=== PATIENT | female | born 1985 | race Caucasian/White ===

== ENCOUNTER 2017-12-02 14:18 | Emergency (ER) | payer MEDICARE, MEDICAID, SELFPAY ==
[2017-12-02 14:24] VITALS: BP 121/73; PULSE 92; TEMP 36.7; O2SAT 97
--- NOTE | 2017-12-02 17:14 | W.ED.GENAD ---
Discharge Plan Disposition Patient Disposition: HOME Condition: Stable Discharge Details Chief Complaint: Orthopedic Clinical Impression: DVT (deep venous thrombosis) Primary Care Provider: Harinder Matthews ED Provider: Linden Prince Home Meds and New Rx's Prescriptions: New ibuprofen [IBU] 600 mg tablet 600 mg PO QID PRN (Reason: pain) Qty: 14 RF: 0 Discontinued norethindrone-e.estradiol-iron [Microgestin Fe 1.5/30 (28)] 1.5 mg-30 mcg (21)/75 mg (7) tablet 1 tab PO DAILY Qty: 84 RF: 3 naproxen 500 MG tablet 500 mg PO PRN PRNRF: 0 Discharge Instructions Instructions: Deep Venous Thrombosis (ED) Additional Instructions: Radiology will call you to arrange a follow-up appointment and after you get a ultrasound done of your left lower leg you should represent to the emergency department for review of results and any treatment as needed. Feel free to return immediately to the emergency department for any chest pain, shortness of breath, or neurological changes. Referrals: [facility] Emergency Dept. [Outside] (Return tomorrow after your ultrasound has been performed for review of results and further treatment as needed) Discharge Data Discharge Date/Time-TO BE ENTERED AT DEPARTURE: 12/02/17 17:52 Medical Decision Making Patient presenting to the emergency department for chief complaint of left calf pain. Patient denies any injury or trauma and has not had any extraneous activities that would have caused this discomfort. Patient does have a swollen left calf with severe tenderness to the medial aspect and also to the popliteal space of the left knee. There is concern for possible DVT and patient states that both mother and aunt has had issues with clotting disorders in the past. Patient states that she has an occasional smoker but is no longer on any control medication. Patient did take naproxen earlier this morning which provided mild relief. Bedside ultrasound was utilized to view the compressibility of the deep veins of the left leg and starting at the popliteal space and down to the calf there seems to be complete loss of compressibility. Is difficult to fully evaluate flow also in this area. I am highly concerned for DVT and discussed with patient risk versus benefit of ankle anticoagulation. After thorough discussion patient was agreeable to being placed upon single injection of Lovenox and having official ultrasound performed tomorrow in the emergency department. Outpatient orders were placed for DVT study of left lower extremity after discussion of diagnosis and plan of care patient is no further needs, questions, or concerns and states clear understanding to return to the emergency department for any worsening symptoms. HPI General Mode of arrival: ambulatory. Date/Time Provider Initiated Documentation: 12/02/17 14:34. Limitations to Documentation: no limitations. Information obtained by: patient. History of Present Illness 32 year old F presents to the emergency department with the chief complaint of Left leg, described as severe, with intensity rated at 8. Quality is described as aching and sharp, and is localized to the left and lower extremity. Patient reports no radiation. Patient started experiencing this day(s) (2) and it has been constant. No relieving factors improve symptom(s), Movement worsens symptoms . Patient notes no other symptoms.. Patient did receive the following treatments prior to arrival, NSAID Related Data Home Medications Medication Instructions Recorded Confirmed ibuprofen [IBU] 600 mg PO QID PRN #14 tab 12/02/17 Previous Rx's Medication Instructions Recorded ibuprofen [IBU] 600 mg PO QID PRN #14 tab 12/02/17 Allergies Allergy/AdvReac Type Severity Reaction Status Date / Time Antihistamines - Alkylamine Allergy Severe Seizure Unverified 11/13/17 09:26 General Stated Complaint: Vascular ELZA: 4 Review of Systems Constitutional Denies body ache(s), Denies chills and Denies fever(s) Cardiovascular Denies chest pain and Denies dyspnea Respiratory Denies dyspnea Gastrointestinal Denies abdominal pain Musculoskeletal Reports as per HPI Integumentary/Breasts Denies rash Neurologic Denies confusion and Denies sensory deficit Psychiatric Denies confusion [facility] Family History Mother Ovarian cancer Maternal Cousin Colon cancer Social History Smoking/Tobacco Use Status: Current every day alcohol intake: never substance use type: does not use seatbelt use: always Female Reproductive History Menstrual Date of last menstrual period: 11/18/17 Exam Const General: cooperative, no acute distress and not ill appearing Orientation: alert, awake and oriented x3 HENMT Mouth: moist mucous membranes Resp Effort & Inspection: normal respiratory effort, able to speak in complete sentences and no respiratory distress Cardio Rate: regular rate Rhythm: regular rhythm Skin General skin exam: no rashes or lesions noted Neuro General: alert, awake, oriented x3, moves all extremities and no focal motor deficits Sensory Exam: no sensory deficits noted Extrem Right lower extremity: normal to inspection Left lower extremity: lower leg Details: tenderness Location: of the posterior calf, localized swelling Location: of the proximal lower leg, no edema and ecchymosis (Proximal medial calf); no palpable cords, no abrasions, no crepitus, no foreign bodies and no unusual warmth Course Vital Signs Temperature 36.7 C 12/02/17 14:24 Pulse 92 H 12/02/17 14:24 Blood Pressure 121/73 12/02/17 14:24 Pulse Oximetry 97 12/02/17 14:24 Temperature 36.7 C 12/02/17 14:24 Temperature Source Skin 12/02/17 14:24 Pulse 92 H 12/02/17 14:24 Respiratory Effort 12/02/17 14:26 Blood Pressure 121/73 12/02/17 14:24 Blood Pressure Position Sitting 12/02/17 14:24 Pulse Oximetry 97 12/02/17 14:24 Oxygen Delivery Method Room Air 12/02/17 14:24 Oxygen Flow Rate 0 12/02/17 14:24
--- NOTE | 2017-12-02 17:31 | ED.GENADUL_ITS ---
Discharge Plan Disposition Patient Disposition: HOME Condition: Stable Discharge Details Chief Complaint: Orthopedic Clinical Impression: DVT (deep venous thrombosis) Primary Care Provider: Harinder Matthews ED Provider: Linden Prince Home Meds and New Rx's Prescriptions: New ibuprofen [IBU] 600 mg tablet 600 mg PO QID PRN (Reason: pain) Qty: 14 RF: 0 Discontinued norethindrone-e.estradiol-iron [Microgestin Fe 1.5/30 (28)] 1.5 mg-30 mcg (21) /75 mg (7) tablet 1 tab PO DAILY Qty: 84 RF: 3 naproxen 500 MG tablet 500 mg PO PRN PRNRF: 0 Discharge Instructions Instructions: Deep Venous Thrombosis (ED) Additional Instructions: Radiology will call you to arrange a follow-up appointment and after you get a ultrasound done of your left lower leg you should represent to the emergency department for review of results and any treatment as needed. Feel free to return immediately to the emergency department for any chest pain, shortness of breath, or neurological changes. Referrals: [facility] Emergency Dept. [Outside] (Return tomorrow after your ultrasound has been performed for review of results and further treatment as needed) Discharge Data Discharge Date/Time-TO BE ENTERED AT DEPARTURE: 12/02/17 17:52 Medical Decision Making Patient presenting to the emergency department for chief complaint of left calf pain. Patient denies any injury or trauma and has not had any extraneous activities that would have caused this discomfort. Patient does have a swollen left calf with severe tenderness to the medial aspect and also to the popliteal space of the left knee. There is concern for possible DVT and patient states that both mother and aunt has had issues with clotting disorders in the past. Patient states that she has an occasional smoker but is no longer on any control medication. Patient did take naproxen earlier this morning which provided mild relief. Bedside ultrasound was utilized to view the compressibility of the deep veins of the left leg and starting at the popliteal space and down to the calf there seems to be complete loss of compressibility. Is difficult to fully evaluate flow also in this area. I am highly concerned for DVT and discussed with patient risk versus benefit of ankle anticoagulation. After thorough discussion patient was agreeable to being placed upon single injection of Lovenox and having official ultrasound performed tomorrow in the emergency department. Outpatient orders were placed for DVT study of left lower extremity after discussion of diagnosis and plan of care patient is no further needs, questions, or concerns and states clear understanding to return to the emergency department for any worsening symptoms. HPI General Mode of arrival: ambulatory . Date/Time Provider Initiated Documentation: 12/02/17 14:34 . Limitations to Documentation: no limitations . Information obtained by: patient . History of Present Illness 32 year old F presents to the emergency department with the chief complaint of Left leg, described as severe, with intensity rated at 8. Quality is described as aching and sharp, and is localized to the left and lower extremity. Patient reports no radiation. Patient started experiencing this day(s) (2) and it has been constant. No relieving factors improve symptom(s) , Movement worsens symptoms . Patient notes no other symptoms.. Patient did receive the following treatments prior to arrival, NSAID Related Data Home Medications Medication Instructions Recorded Confirmed ibuprofen [IBU] 600 mg PO QID PRN #14 tab 12/02/17 Previous Rx's Medication Instructions Recorded ibuprofen [IBU] 600 mg PO QID PRN #14 tab 12/02/17 Allergies Allergy/AdvReac Type Severity Reaction Status Date / Time Antihistamines - Alkylamine Allergy Severe Seizure Unverified 11/13/17 09:26 General Stated Complaint: Vascular ELZA: 4 Review of Systems Constitutional Denies body ache(s), Denies chills and Denies fever(s) Cardiovascular Denies chest pain and Denies dyspnea Respiratory Denies dyspnea Gastrointestinal Denies abdominal pain Musculoskeletal Reports as per HPI Integumentary/Breasts Denies rash Neurologic Denies confusion and Denies sensory deficit Psychiatric Denies confusion [facility] Family History Mother Ovarian cancer Maternal Cousin Colon cancer Social History Smoking/Tobacco Use Status: Current every day alcohol intake: never substance use type: does not use seatbelt use: always Female Reproductive History Menstrual Date of last menstrual period: 11/18/17 Exam Const General: cooperative, no acute distress and not ill appearing Orientation: alert, awake and oriented x3 HENMT Mouth: moist mucous membranes Resp Effort & Inspection: normal respiratory effort, able to speak in complete sentences and no respiratory distress Cardio Rate: regular rate Rhythm: regular rhythm Skin General skin exam: no rashes or lesions noted Neuro General: alert, awake, oriented x3, moves all extremities and no focal motor deficits Sensory Exam: no sensory deficits noted Extrem Right lower extremity: normal to inspection Left lower extremity: lower leg Details: tenderness Location: of the posterior calf, localized swelling Location: of the proximal lower leg, no edema and ecchymosis (Proximal medial calf); no palpable cords, no abrasions, no crepitus , no foreign bodies and no unusual warmth Course Vital Signs Temperature 36.7 C 12/02/17 14:24 Pulse 92 H 12/02/17 14:24 Blood Pressure 121/73 12/02/17 14:24 Pulse Oximetry 97 12/02/17 14:24 Temperature 36.7 C 12/02/17 14:24 Temperature Source Skin 12/02/17 14:24 Pulse 92 H 12/02/17 14:24 Respiratory Effort 12/02/17 14:26 Blood Pressure 121/73 12/02/17 14:24 Blood Pressure Position Sitting 12/02/17 14:24 Pulse Oximetry 97 12/02/17 14:24 Oxygen Delivery Method Room Air 12/02/17 14:24 Oxygen Flow Rate 0 12/02/17 14:24
[2017-12-02] MEDS: Ibuprofen 600 MG TAB PO (17:45)
== END 2017-12-02 17:52 | disposition home or self-care (01) ==
PROVIDERS: Emergency Provider Nurse Practitioner Family; PCP Family Medicine
DX: I82.422 Acute embolism and thrombosis of left iliac vein (principal); F17.210 Nicotine dependence, cigarettes, uncomplicated
CPT/HCPCS: 96372; 99284; J1650

== ENCOUNTER 2017-12-03 09:37 | Outpatient (CLI) | payer MEDICARE, MEDICAID, SELFPAY ==
--- NOTE | 2017-12-03 09:25 | DI.US_ITS ---
SYMPTOMS/DIAGNOSIS: LT LEG PAIN, SWELLING DUPLEX VENOUS ULTRASOUND LEFT LOWER EXTREMITY: Duplex evaluation of the deep venous system was performed according to the usual protocol. The deep veins are freely compressible throughout to the level of the popliteal veins. There is normal doppler flow visible throughout and there is excellent flow augmentation with manual calf compression. CONCLUSION: No evidence of deep venous thrombosis.
== END 2017-12-03 09:57 ==
PROVIDERS: PCP Family Medicine; Visit Provider Nurse Practitioner Family
DX: M79.605 Pain in left leg (principal); R22.42 Localized swelling, mass and lump, left lower limb
CPT/HCPCS: 93971

== ENCOUNTER 2017-12-03 10:26 | Emergency (ER) | payer MEDICARE, MEDICAID, SELFPAY ==
[2017-12-03 10:33] VITALS: BP 116/78; PULSE 72; RESP 18; TEMP 36.7; O2SAT 98
--- NOTE | 2017-12-03 11:27 | W.ED.GENAD ---
Discharge Plan Disposition Patient Disposition: HOME Condition: Fair Discharge Details Chief Complaint: Recheck Clinical Impression: Lower extremity pain Primary Care Provider: Harinder Matthews ED Provider: Jamee Bee Home Meds and New Rx's Prescriptions: Continue ibuprofen [IBU] 600 mg tablet 600 mg PO QID PRN (Reason: pain) Qty: 14 RF: 0 Discharge Instructions Instructions: Leg Pain (ED) Additional Instructions: Encourage hydration. Continue with ibuprofen as prescribed for discomfort and help with inflammation. Ultrasound was negative today. However, please discuss repeat ultrasound with your primary care in 7-10 days. Continue with compression to help with swelling. He may try thigh-high stockings as this will likely be more comfortable for your and help more with swelling. Please follow-up with primary care for repeat ultrasound and reevaluation in 1 week. If you develop chest pain, shortness of breath, increased pain or the new/worsening symptoms please seek care urgently once again Stand Alone Forms: Work Release Referrals: Harinder Matthews [Primary Care Provider] - Medical Decision Making Patient is a 32-year-old female presenting today for follow-up of left lower extremity pain. She was seen here last night with concern for possible DVT. Patient underwent outpatient ultrasound prior to arrival and presents to discuss her results. Patient reports that her mother and her aunt both have had history of DVT. Mother did have history of cancer. She reports that her aunts are unprovoked. No known congenital abnormalities although she reports that her aunt has not been tested for congenital sources of her clots. She denies any shortness of breath or chest pain. Reports that overall her pain is improved from yesterday. Yesterday, patient rated her pain at 8 out of 10. Is currently endorsing pain in a 5 out of 10. Reports that the burning that she is experiencing yesterday has improved although the generalized achiness in the posterior medial aspect of the calf has persisted. Prior to the patient's arrival, requested by radiologist advise DVT study was negative Did call the radiologist to discuss the findings once again. He advised that there is no evidence of hematoma, no findings to suggest DVT, no Ficnh's cyst. Discussed findings with the patient. I did reevaluate her and did note an area of focal swelling along the medial aspect of the calf. I advised that this area of swelling is more concerning for musculoskeletal source. Patient is quite active at work, it is unknown if she may have injured herself unknowingly at work. However, given the patient's family history of clot, I feel the follow-up with repeat ultrasound in 1 week is appropriate. I have asked that she contact her primary care physician to discuss scheduling this outpatient appointment. Patient was wrapped with an Reilly wrap to help swelling. Encourage rest, ice, elevation. She was prescribed ibuprofen yesterday which I advised she continue to help with inflammatory change and help with discomfort. We discussed new/worsening symptoms when to seek care urgently once again. All of her questions and concerns were addressed and she is in agreement with this plan. HPI General Mode of arrival: ambulatory. Date/Time Provider Initiated Documentation: 12/03/17 10:34. Limitations to Documentation: no limitations. Information obtained by: patient. History of Present Illness 32 year old F presents to the emergency department with the chief complaint of Left lower extremity pain, described as moderate, with intensity rated at 5. Quality is described as aching and constant, and is localized to the left and lower extremity. Patient extremity (can radiate down the anterior tibia with ambulation). Patient started experiencing this day(s) (2) and it has been constant. No relieving factors improve symptom(s), Movement worsens symptoms . Patient notes no other symptoms.; denies chest pain, cough, fever/chills, rash and shortness of breath. Patient did receive the following treatments prior to arrival, none Related Data Home Medications Medication Instructions Recorded Confirmed ibuprofen [IBU] 600 mg PO QID PRN #14 tab 12/02/17 Previous Rx's Medication Instructions Recorded ibuprofen [IBU] 600 mg PO QID PRN #14 tab 12/02/17 Allergies Allergy/AdvReac Type Severity Reaction Status Date / Time Antihistamines - Alkylamine Allergy Severe Seizure Unverified 11/13/17 09:26 General Stated Complaint: Recheck ELZA: 4 Review of Systems Constitutional Reports as per HPI and Denies weakness Cardiovascular Reports as per HPI, Denies chest pain, Denies chest pain with activity, Denies pedal edema, Denies edema, Denies dyspnea and Denies dyspnea on exertion Respiratory Reports as per HPI, Denies dyspnea, Denies dyspnea on exertion, Denies stridor and Denies wheezing Musculoskeletal Reports as per HPI, Denies abnormal gait, Denies numbness and Denies tingling Integumentary/Breasts Denies rash and Reports skin pain Neurologic Denies abnormal gait, Reports burning sensations (LLE ), Denies numbness, Denies sensory deficit, Denies tingling, Denies paresthesias and Denies weakness Allergic/Immunologic Denies wheezing PFSH Family History Mother Ovarian cancer Maternal Cousin Colon cancer Social History Smoking/Tobacco Use Status: Current every day alcohol intake: never substance use type: does not use seatbelt use: always Female Reproductive History Menstrual control method: pills Exam Const General: cooperative, healthy appearing, comfortable, no acute distress, well developed and well groomed Nutritional Appearance: well nourished and overweight Orientation: alert and awake Resp Effort & Inspection: normal respiratory effort, able to speak in complete sentences and no respiratory distress Auscultation: clear to auscultation bilaterally, no rales, no rhonchi and no wheezes Cardio Rate: regular rate Rhythm: regular rhythm Heart Sounds: S1 normal and S2 normal Skin General skin exam: no rashes or lesions noted Lesions: no lesions Rashes: no rashes Trauma: no lacerations or abrasions Wounds: no wounds Neuro General: alert and awake Cognition: normal cognition Speech: speech normal Gait: normal gait Motor: muscle tone normal throughout and strength 5/5 throughout (5/5 in affected extremity) Sensory Exam: no sensory deficits noted Extrem General: full ROM (full ROM of knee, ligamentously intact. Limited ROM of ankle, she associates with post surgical changes from multiple surgeries historically. 2+ distal pulses), no pedal edema, normal gait and calf tenderness on the left (pain maximal along the posterior medial aspect with area of localized swelling medially, see below. No discolortation. Calf is soft. Positive Homans sign) Knee images: 1. area of swelling Psych Appearance: grossly normal and well kempt Mental Status: mental status grossly normal Speech and Movement: speech and movement normal Course Vital Signs Temperature 36.7 C 12/03/17 10:33 Pulse 72 12/03/17 10:33 Respiratory Rate 18 12/03/17 10:33 Blood Pressure 116/78 12/03/17 10:33 Pulse Oximetry 98 12/03/17 10:33 Temperature 36.7 C 12/03/17 10:33 Temperature Source Temporal Artery Scan 12/03/17 10:33 Pulse 72 12/03/17 10:33 Respiratory Rate 18 12/03/17 10:33 Respiratory Effort 12/03/17 10:35 Blood Pressure 116/78 12/03/17 10:33 Pulse Oximetry 98 12/03/17 10:33 Oxygen Delivery Method Room Air 12/03/17 10:33 Oxygen Flow Rate 0 12/03/17 10:33 Pain Level 4 12/03/17 10:33
--- NOTE | 2017-12-03 11:34 | ED.GENADUL_ITS ---
Discharge Plan Disposition Patient Disposition: HOME Condition: Fair Discharge Details Chief Complaint: Recheck Clinical Impression: Lower extremity pain Primary Care Provider: Harinder Matthews ED Provider: Jamee Bee Home Meds and New Rx's Prescriptions: Continue ibuprofen [IBU] 600 mg tablet 600 mg PO QID PRN (Reason: pain) Qty: 14 RF: 0 Discharge Instructions Instructions: Leg Pain (ED) Additional Instructions: Encourage hydration. Continue with ibuprofen as prescribed for discomfort and help with inflammation. Ultrasound was negative today. However, please discuss repeat ultrasound with your primary care in 7-10 days. Continue with compression to help with swelling. He may try thigh-high stockings as this will likely be more comfortable for your and help more with swelling. Please follow-up with primary care for repeat ultrasound and reevaluation in 1 week. If you develop chest pain, shortness of breath, increased pain or the new/ worsening symptoms please seek care urgently once again Stand Alone Forms: Work Release Referrals: Harinder Matthews [Primary Care Provider] - Medical Decision Making Patient is a 32-year-old female presenting today for follow-up of left lower extremity pain. She was seen here last night with concern for possible DVT. Patient underwent outpatient ultrasound prior to arrival and presents to discuss her results. Patient reports that her mother and her aunt both have had history of DVT. Mother did have history of cancer. She reports that her aunts are unprovoked. No known congenital abnormalities although she reports that her aunt has not been tested for congenital sources of her clots. She denies any shortness of breath or chest pain. Reports that overall her pain is improved from yesterday. Yesterday, patient rated her pain at 8 out of 10. Is currently endorsing pain in a 5 out of 10. Reports that the burning that she is experiencing yesterday has improved although the generalized achiness in the posterior medial aspect of the calf has persisted. Prior to the patient's arrival, requested by radiologist advise DVT study was negative Did call the radiologist to discuss the findings once again. He advised that there is no evidence of hematoma, no findings to suggest DVT, no Finch's cyst. Discussed findings with the patient. I did reevaluate her and did note an area of focal swelling along the medial aspect of the calf. I advised that this area of swelling is more concerning for musculoskeletal source. Patient is quite active at work, it is unknown if she may have injured herself unknowingly at work. However, given the patient's family history of clot, I feel the follow -up with repeat ultrasound in 1 week is appropriate. I have asked that she contact her primary care physician to discuss scheduling this outpatient appointment. Patient was wrapped with an Reilly wrap to help swelling. Encourage rest, ice, elevation. She was prescribed ibuprofen yesterday which I advised she continue to help with inflammatory change and help with discomfort. We discussed new/worsening symptoms when to seek care urgently once again. All of her questions and concerns were addressed and she is in agreement with this plan. HPI General Mode of arrival: ambulatory . Date/Time Provider Initiated Documentation: 12/03/17 10:34 . Limitations to Documentation: no limitations . Information obtained by: patient . History of Present Illness 32 year old F presents to the emergency department with the chief complaint of Left lower extremity pain, described as moderate, with intensity rated at 5. Quality is described as aching and constant, and is localized to the left and lower extremity. Patient extremity (can radiate down the anterior tibia with ambulation). Patient started experiencing this day(s) (2) and it has been constant. No relieving factors improve symptom(s), Movement worsens symptoms . Patient notes no other symptoms.; denies chest pain, cough , fever/chills, rash and shortness of breath. Patient did receive the following treatments prior to arrival, none Related Data Home Medications Medication Instructions Recorded Confirmed ibuprofen [IBU] 600 mg PO QID PRN #14 tab 12/02/17 Previous Rx's Medication Instructions Recorded ibuprofen [IBU] 600 mg PO QID PRN #14 tab 12/02/17 Allergies Allergy/AdvReac Type Severity Reaction Status Date / Time Antihistamines - Alkylamine Allergy Severe Seizure Unverified 11/13/17 09:26 General Stated Complaint: Recheck ELZA: 4 Review of Systems Constitutional Reports as per HPI and Denies weakness Cardiovascular Reports as per HPI, Denies chest pain, Denies chest pain with activity, Denies pedal edema, Denies edema, Denies dyspnea and Denies dyspnea on exertion Respiratory Reports as per HPI, Denies dyspnea, Denies dyspnea on exertion, Denies stridor and Denies wheezing Musculoskeletal Reports as per HPI, Denies abnormal gait, Denies numbness and Denies tingling Integumentary/Breasts Denies rash and Reports skin pain Neurologic Denies abnormal gait, Reports burning sensations (LLE ), Denies numbness, Denies sensory deficit, Denies tingling, Denies paresthesias and Denies weakness Allergic/Immunologic Denies wheezing PFSH Family History Mother Ovarian cancer Maternal Cousin Colon cancer Social History Smoking/Tobacco Use Status: Current every day alcohol intake: never substance use type: does not use seatbelt use: always Female Reproductive History Menstrual control method: pills Exam Const General: cooperative, healthy appearing, comfortable, no acute distress, well developed and well groomed Nutritional Appearance: well nourished and overweight Orientation: alert and awake Resp Effort & Inspection: normal respiratory effort, able to speak in complete sentences and no respiratory distress Auscultation: clear to auscultation bilaterally, no rales, no rhonchi and no wheezes Cardio Rate: regular rate Rhythm: regular rhythm Heart Sounds: S1 normal and S2 normal Skin General skin exam: no rashes or lesions noted Lesions: no lesions Rashes: no rashes Trauma: no lacerations or abrasions Wounds: no wounds Neuro General: alert and awake Cognition: normal cognition Speech: speech normal Gait: normal gait Motor: muscle tone normal throughout and strength 5/5 throughout (5/5 in affected extremity) Sensory Exam: no sensory deficits noted Extrem General: full ROM (full ROM of knee, ligamentously intact. Limited ROM of ankle , she associates with post surgical changes from multiple surgeries historically. 2+ distal pulses), no pedal edema, normal gait and calf tenderness on the left (pain maximal along the posterior medial aspect with area of localized swelling medially, see below. No discolortation. Calf is soft. Positive Homans sign) Knee images: 2 1. area of swelling Psych Appearance: grossly normal and well kempt Mental Status: mental status grossly normal Speech and Movement: speech and movement normal Course Vital Signs Temperature 36.7 C 12/03/17 10:33 Pulse 72 12/03/17 10:33 Respiratory Rate 18 12/03/17 10:33 Blood Pressure 116/78 12/03/17 10:33 Pulse Oximetry 98 12/03/17 10:33 Temperature 36.7 C 12/03/17 10:33 Temperature Source Temporal Artery Scan 12/03/17 10:33 Pulse 72 12/03/17 10:33 Respiratory Rate 18 12/03/17 10:33 Respiratory Effort 12/03/17 10:35 Blood Pressure 116/78 12/03/17 10:33 Pulse Oximetry 98 12/03/17 10:33 Oxygen Delivery Method Room Air 12/03/17 10:33 Oxygen Flow Rate 0 12/03/17 10:33 Pain Level 4 12/03/17 10:33
--- NOTE | 2017-12-03 13:02 | PDOC.ERCMPRO ---
Care Management Progress Note 12/03/17-Pt seen today for f/u on leg ultrasound by TOPHER Delgado. F/F referral request faxed to [facility] .
== END 2017-12-03 11:36 | disposition home or self-care (01) ==
PROVIDERS: Emergency Provider Physician Assistant; PCP Family Medicine
DX: M79.605 Pain in left leg (principal); Z71.2 Person consulting for explanation of examination or test findings
CPT/HCPCS: 99282; 93971

== ENCOUNTER 2017-12-04 20:24 | Emergency (ER) | payer MEDICARE, MEDICAID, SELFPAY ==
[2017-12-04 20:41] VITALS: BP 138/81; PULSE 104; RESP 20; TEMP 36.2; O2SAT 98
--- NOTE | 2017-12-04 21:11 | W.ED.GENAD ---
Discharge Plan Disposition Patient Disposition: HOME Condition: Good Discharge Details Chief Complaint: RashLesion Clinical Impression: Shingles Primary Care Provider: Harinder Matthews ED Provider: Jorge Conrad Home Meds and New Rx's Prescriptions: New gabapentin [Neurontin] 300 MG capsule 300 mg PO TID Qty: 90 RF: 0 valacyclovir 1 gram tablet 1,000 mg PO Q8H 10 Days Qty: 30 RF: 0 capsaicin 0.075 % cream 1 applic TP TID Qty: 57 RF: 0 No Action ibuprofen [IBU] 600 mg tablet 600 mg PO QID PRN (Reason: pain) Qty: 14 RF: 0 Discharge Instructions Instructions: Shingles (ED) Additional Instructions: Please take the medication as directed. Please avoid women and unimmunized children. Please be cautious around the elderly and wash your hands regularly. If you notice any worsening of your symptoms, or any new symptoms such as vomiting, diarrhea, fever, chills, shortness of breath, chest pain, numbness, weakness, or fainting , please return immediately to the emergency department for reevaluation. Please follow up with your primary care provider as soon as possible for reassessment and reevaluation. As always, it was a pleasure participating in your medical care today. Stand Alone Forms: Work Release Referrals: Harinder Matthews [Primary Care Provider] - Medical Decision Making This is a pleasant 32-year-old female who presents with a rash on her back. The patient demonstrates evidence of shingles on her back. She is not immunocompromise. She shows no signs of other systemic abnormalities or other signs of rash. This does not appear visually consistent with dress syndrome, or an allergic reaction secondary to Depakote. Her symptoms have burning, itching, and are located in a single back dermatome on the left back and do not cross midline. Patient will be given antivirals, gabapentin, and because spacing cream. We discussed red flags which return the patient understands. I have extensively reviewed the treatment plan and discharge instructions with the patient. I have addressed all patient concerns at this time. The patient was made aware of what symptoms to monitor for that would warrant a return to the emergency department. Discussed the plan with the patient, they demonstrate verbal understanding and agreement with our assessment and plan at this time. HPI General Date/Time Provider Initiated Documentation: 12/04/17 20:33. HPI Narrative: This is a 32-year-old female with a past medical history of seizures for which she takes Depakote, who presents for evaluation of rash. She was recently here 2-3 days ago for evaluation of left calf pain and subsequently got an ultrasound which was negative. She states that over the last 48 hours she developed an itching burning rash over her left back. She has been unable to visualize it due to its location. She denies any systemic symptoms of chest pain, shortness of breath, fever, chills. She did have chickenpox as a child. She has never had shingles before. She has no other complaints at this time. She denies any lesions in her mouth, or any other place in her body. She denies any vaginal discharge, significant flank pain, chills, vomiting, diarrhea. Related Data Home Medications Medication Instructions Recorded Confirmed ibuprofen [IBU] 600 mg PO QID PRN #14 tab 12/02/17 12/04/17 capsaicin 1 applic TP TID #57 gm 12/04/17 gabapentin [Neurontin] 300 mg PO TID #90 cap 12/04/17 valacyclovir 1,000 mg PO Q8H 10 Days #30 tab 12/04/17 Previous Rx's Medication Instructions Recorded ibuprofen [IBU] 600 mg PO QID PRN #14 tab 12/02/17 capsaicin 1 applic TP TID #57 gm 12/04/17 gabapentin [Neurontin] 300 mg PO TID #90 cap 12/04/17 valacyclovir 1,000 mg PO Q8H 10 Days #30 tab 12/04/17 Allergies Allergy/AdvReac Type Severity Reaction Status Date / Time Antihistamines - Alkylamine Allergy Severe Seizure Unverified 12/04/17 20:45 General Stated Complaint: RashLesion ELZA: 4 Review of Systems Review of Systems All systems reviewed & are unremarkable except as noted in HPI and below PFSH Female Reproductive History Menstrual control method: pills Exam Narrative Exam Narrative: 1.Const: Well-nourished, Well-developed, appearing stated age 2.Eyes: PERRL, no conjunctival injection, and symmetrical lids. 3.ENT: Atraumatic external nose and ears. Moist MM. Neck: Symmetric, trachea midline, No thyromegaly. No lesions in the mouth or oral mucosa. 4.CVS: +S1/S2, No murmurs or gallops. Peripheral pulses 2+ and equal in all extremities. Brisk capillary refill in all extremities. 5.RESP: Unlabored respiratory effort. Clear to auscultation bilaterally. No wheezes rales or rhonchi 6.GI: Soft, Nontender/Nondistended, No hepatosplenomegaly. No guarding or rebound. 7.MSK: Normocephalic/Atraumatic, Extremities w/o deformity or ttp No cyanosis or clubbing, Normal movement of all extremities. Minimal tenderness in the left lower extremity over the patient's proximal medial aspect of the calf just below the medial tibial plateau. No calf tenderness. Brisk capillary refill, +2 radial, dorsalis pedis and posterior tibial pulses. 8.Skin: Warm, Dry. The patient has had 3 vesicular lesions on her left back. Signs and symptoms are consistent with shingles. Negative Nikolsky sign, no skin sloughing. No superimposed cellulitis. 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 Sensation grossly intact, no focal neurologic deficits. 10.Psych: (AAO) x3. Appropriate mood and affect Course Vital Signs Temperature 36.2 C L 12/04/17 20:41 Pulse 104 H 12/04/17 20:41 Respiratory Rate 20 12/04/17 20:41 Blood Pressure 138/81 12/04/17 20:41 Pulse Oximetry 98 12/04/17 20:41 Temperature 36.2 C L 12/04/17 20:41 Temperature Source Skin 12/04/17 20:41 Pulse 104 H 12/04/17 20:41 Respiratory Rate 20 12/04/17 20:41 Respiratory Effort Non-Labored 12/04/17 20:43 Blood Pressure 138/81 12/04/17 20:41 Blood Pressure Position Sitting 12/04/17 20:41 Pulse Oximetry 98 12/04/17 20:41 Oxygen Delivery Method Room Air 12/04/17 20:41 Oxygen Flow Rate 0 12/04/17 20:41 Pain Level 3 12/04/17 20:41
== END 2017-12-04 21:44 | disposition home or self-care (01) ==
PROVIDERS: Emergency Provider Student in an Organized Health Care Education/Training Program; PCP Family Medicine
DX: B02.9 Zoster without complications (principal)
CPT/HCPCS: 81025; 99283

== ENCOUNTER 2017-12-31 15:49 | Outpatient (REF) | payer MEDICARE, MEDICAID, SELFPAY ==
--- NOTE | 2017-12-31 15:00 | SOFT_PTH ---
PATIENT: Rupinder Centeno LOC: [facility] U#:[id number] AGE/SX: 32/F ROOM: RE12/31/[address]: Harinder Matthews : 1985 BED: DIS: 12/31/2017 SPEC #: [id number] RECD: 12/31/17 18:19 STATUS: SADAF REQ #: [id number] MENDEZ: 12/31/17 15:[address]: Harinder Matthews DEPT: Surgical Specimen RECD BY: Raine Gonsales Tissues: 1 - SOFT TISSUE [facility] Procedures: GROSS AND MICRO LEVEL 3 Comments: [id number]
== END 2017-12-31 16:09 ==
LOC: NCHCN 15:49
PROVIDERS: PCP Family Medicine; Visit Provider Family Medicine
DX: D17.1 Benign lipomatous neoplasm of skin and subcutaneous tissue of trunk (principal)
CPT/HCPCS: 88304; 88305

== ENCOUNTER 2018-10-02 12:46 | Emergency (ER) | payer MEDICARE, SELFPAY ==
--- NOTE | 2018-10-02 12:48 | ED.GENADUL_ITS ---
Discharge Plan Disposition Patient Disposition: HOME Condition: Good Discharge Details Chief Complaint: Laceration Clinical Impression: Laceration of finger Primary Care Provider: Harinder Matthews ED Provider: Jamee Bee Home Meds and New Rx's Prescriptions: Continued divalproex [Depakote] 500 mg Tablet,Delayed Release (Dr/Ec) 500 mg PO BID RF: 0 ibuprofen [IBU] 600 mg tablet 600 mg PO QID PRN (Reason: pain) Qty: 14 RF: 0 Discharge Instructions Instructions: Finger Laceration (ED), Skin Adhesive Care (ED) Additional Instructions: Keep wound clean, dry, covered. Tylenol and ibuprofen as needed for discomfort. Please monitor wound for signs of infection including redness, warmth, drainage, increased pain, fever/chills. If these or other new/worsening symptoms arise please seek care urgently once again. He may wash with running water, please keep dry for today. Do not apply any ointment over the adhesive this may cause it to break down too quickly. Please continue to cut back the nail to help prevent it from breaking further. Follow-up with primary care as needed. Referrals: Harinder Matthews [Primary Care Provider] - Discharge Data Discharge Date/Time-TO BE ENTERED AT DEPARTURE: 10/02/18 14:03 Medical Decision Making Patient is a RHD female presenting today with c/c of laceration to the left thumb. Patient states that she was working on a wheelchair and cut her finger on a metal piece. HAs a 8mm wound that goes into the distal tip of nail. Wound is superficial, no ligamentous injury. No evidence of bone involvement. Last tetanus 1995, we will update today. Plan to anesthetize topically and close with adhesive. LET worked well for the patient. Wound was copiously irrigated and cleansed with chlorohexidine. Thin layer of adhisive applied over wound. We discussed care of wound and adhesive. Discussed sxs of infection adn when to seek care urgently once again. All quesitons and concerns were addressed, she is in agreement iw this plan. HPI General Mode of arrival: ambulatory . Date/Time Provider Initiated Documentation: 10/02/18 12:48 . Limitations to Documentation: no limitations . Information obtained by: patient, family (accompanied by friend) and RN notes reviewed . History of Present Illness 33 year old F presents to the emergency department with the chief complaint of left thumb laceration, described as moderate, with intensity rated at 8. Quality is described as burning, and is localized to the left and upper extremity. Patient reports no radiation. Patient started experiencing this minute(s) and it has been constant. No relieving factors improve symptom(s), No exacerbating factors reported . Patient notes no other symptoms.. Patient did receive the following sachi tments prior to arrival, none Related Data Home Medications Medication Instructions Recorded Confirmed ibuprofen [IBU] 600 mg PO QID PRN #14 tab 12/02/17 10/02/18 divalproex [Depakote] 500 mg PO BID 10/02/18 10/02/18 Previous Rx's Medication Instructions Recorded ibuprofen [IBU] 600 mg PO QID PRN #14 tab 12/02/17 Allergies Allergy/AdvReac Type Severity Reaction Status Date / Time Antihistamines - Alkylamine Allergy Severe Seizure Unverified 10/02/18 12:55 General ELZA: 4 Review of Systems Constitutional Reports as per HPI, Denies chills and Denies fever(s) Musculoskeletal Reports as per HPI Integumentary/Breasts Reports as per HPI Neurologic Reports as per HPI, Denies sensory deficit and Denies paresthesias PFSH Social History Smoking/Tobacco Use Status: Current every day Alcohol Intake: never Drug use: Never Substance use type: does not use Seatbelt use: always Do you feel safe in your relationship?: Yes Female Reproductive History Menstrual control method: pills History History 1 Para Hx # Term Pregnancies 1 Multiple births Hx # Pregnancies Ectopic pregnancies AB induced Hx Number of Living Children AB spontaneous Exam Const General: cooperative, healthy appearing, comfortable, no acute distress and well developed Nutritional Appearance: average body habitus and well nourished Orientation: alert and awake Resp Effort & Inspection: normal respiratory effort, able to speak in complete sentences and no respiratory distress Cardio Rate: regular rate Rhythm: regular rhythm Skin Trauma: laceration (8mm superficial laceration distal tip into distal nail) Neuro General: alert and awake Cognition: normal cognition Speech: speech normal Gait: normal gait Sensory Exam: no sensory deficits noted Extrem Left upper extremity: full ROM, normal capillary refill and no joint enlargement; abnormal to inspection (laceration as above) Hand/finger images: 1. injury into nail 2. area of laceration Psych Appearance: grossly normal and well kempt Mental Status: mental status grossly normal Speech and Movement: speech and movement normal
[2018-10-02 12:53] VITALS: BP 131/105; PULSE 111; RESP 16; TEMP 36.7; O2SAT 97
[2018-10-02] MEDS: Lidocaine/Epinephri/Tetracaine Topical Gel 3 ML TP (13:09)
[2018-10-02 13:56] VITALS: BP 131/88; PULSE 90; RESP 16; TEMP 36.7; O2SAT 97
--- NOTE | 2018-10-02 13:56 | NUR.NOTE ---
Nursing Note: site clensed with jordan pt tolorated well flushed with 500 cc of NS and HCG
== END 2018-10-02 14:03 | disposition home or self-care (01) ==
PROVIDERS: Emergency Provider Physician Assistant; PCP Family Medicine
DX: S61.112A Laceration without foreign body of left thumb with damage to nail, initial encounter (principal); W45.8XXA Other foreign body or object entering through skin, initial encounter
CPT/HCPCS: 12001; 90471

== ENCOUNTER 2018-11-21 13:54 | Outpatient (REF) | payer MEDICARE, MEDICAID, SELFPAY ==
--- NOTE | 2018-11-21 13:30 | PAPFT_PTH ---
PATIENT: Rupinder Centeno LOC: [facility] U#:[id number] AGE/SX: 33/F ROOM: RE11/21/[address]: Anika Lara NP : 1985 BED: DIS: 11/21/2018 SPEC #: [id number] RECD: 11/21/18 17:47 STATUS: SADAF REVeronica #: [id number] MENDEZ: 11/21/18 13:[address]: Anika Lara NP DEPT: [facility] Cytology RECD BY: Raine Gonsales ENTERED: 11/21/18 17:47 SP TYPE: PAPFT OTHR DR: Harinder Matthews Tissues: 1 - CX/ENDOCX FOR PAP SMEARS Procedures: PAP THIN PREP/[facility] Screening HPV DNA PROBE Comments: [id number]
== END 2018-11-21 14:14 ==
LOC: LBN 13:54
PROVIDERS: PCP Family Medicine; Visit Provider Nurse Practitioner Women's Health
DX: Z12.4 Encounter for screening for malignant neoplasm of cervix (principal); Z11.51 Encounter for screening for human papillomavirus (HPV)
CPT/HCPCS: 88142; 87624

== ENCOUNTER 2019-01-02 11:16 | Emergency (ER) | payer MEDICARE, BC, SELFPAY ==
[2019-01-02 11:20] VITALS: BP 134/81; PULSE 104; RESP 20; TEMP 36.7; O2SAT 98
--- NOTE | 2019-01-02 11:41 | W.ED.GENAD ---
Discharge Plan Disposition Patient Disposition: HOME Condition: Stable Discharge Details Chief Complaint: Sorethroat Clinical Impression: URI (upper respiratory infection) Primary Care Provider: Harinder Matthews ED Provider: Linden Prince Home Meds and New Rx's Prescriptions: New benzonatate 200 mg capsule 200 mg PO TID PRN (Reason: cough) Qty: 30 RF: 0 Continued Microgestin Fe 1.5/30 (28) 1.5 mg-30 mcg (21)/75 mg (7) tablet 1 tab PO DAILY Qty: 84 RF: 5 nicotine 7 mg/24 hr patch 24 hour 1 patch TD Q24H Qty: 28 RF: 3 divalproex [Depakote] 500 mg Tablet,Delayed Release (Dr/Ec) 500 mg PO BID RF: 0 ibuprofen [IBU] 600 mg tablet 600 mg PO QID PRN (Reason: pain) Qty: 14 RF: 0 Discharge Instructions Instructions: Upper Respiratory Infection (ED) Additional Instructions: During illness please get plenty of rest, stay well-hydrated, and cover your cough along with perform appropriate hand hygiene. Feel free to return to the emergency department for any new or significant worsening of symptoms, new fever that occurs after 7 to 10 days of symptoms, or any further concerns. It is also recommended that if you are not improving you should follow-up with your primary care provider in the next week for reassessment as needed Stand Alone Forms: Work Release Referrals: Harinder Matthews [Primary Care Provider] - (As needed for reassessment) Medical Decision Making Patient presenting to the emergency department for chief complaint of sore throat and cough. Patient reports that she has been having symptoms that have occurred over the last 2 days. Patient states associated chills and malaise. Physical exam shows completely normal oropharynx, no tonsillar erythema edema or hypertrophy, clear lung sounds with occasional dry cough, normal cardiac exam with no tachycardia on my assessment, no signs of meningitis, HEENT exam otherwise unremarkable except for audible nasal congestion heard. research staff member initiated protocol for rapid strep testing. Patient has normal vital signs but check and vital signs do show some mild tachycardia. Rapid strep test came back negative. I feel patient has symptoms consistent with upper respiratory tract infection presumably viral in nature. Discussed conservative management with patient and also did prescribe Tessalon Perles for patient and gave work note to allow for additional rest. Return precautions discussed. After discussion of diagnosis and plan of care patient has no further needs, questions, or concerns and states clear understanding to return to the emergency department for any worsening symptoms. HPI General Mode of arrival: ambulatory. Date/Time Provider Initiated Documentation: 01/02/19 11:23. Limitations to Documentation: no limitations. Information obtained by: patient and RN notes reviewed. History of Present Illness 33 year old F presents to the emergency department with the chief complaint of Sore throat, cough, described as moderate, with intensity rated at 8. Quality is described as aching, and is localized to the mouth (Sore throat). Patient started experiencing this day(s) (2) and it has been constant. Related Data Home Medications Medication Instructions Recorded Confirmed ibuprofen [IBU] 600 mg PO QID PRN #14 tab 12/02/17 11/21/18 divalproex [Depakote] 500 mg PO BID 10/02/18 11/21/18 nicotine 7 mg/24 hr daily 1 patch TD Q24H #28 each 11/21/18 11/21/18 transdermal patch norethindrone 1.5 mg-ethinyl 1 tab PO DAILY #84 tab 11/21/18 11/21/18 estradiol 30 mcg(21)/iron 75 mg(7) tablet benzonatate 200 mg PO TID PRN #30 cap 01/02/19 Previous Rx's Medication Instructions Recorded ibuprofen [IBU] 600 mg PO QID PRN #14 tab 12/02/17 nicotine 7 mg/24 hr daily 1 patch TD Q24H #28 each 11/21/18 transdermal patch norethindrone 1.5 mg-ethinyl 1 tab PO DAILY #84 tab 11/21/18 estradiol 30 mcg(21)/iron 75 mg(7) tablet benzonatate 200 mg PO TID PRN #30 cap 01/02/19 Allergies Allergy/AdvReac Type Severity Reaction Status Date / Time Antihistamines - Alkylamine Allergy Severe Seizure Verified 11/21/18 12:53 General Stated Complaint: Sorethroat ELZA: 4 Review of Systems Constitutional Constitutional: Reports chills, Denies fever(s), Denies headache(s) and Reports malaise ENT Ears, Nose, Mouth, and Throat: Denies dysphagia, Denies otalgia, Denies headache(s), Denies nasal congestion, Reports odynophagia and Reports sore throat Cardiovascular Cardiovascular: Denies chest pain Respiratory Respiratory: Denies chest congestion and Reports cough Gastrointestinal Gastrointestinal: Denies dysphagia and Reports odynophagia Neurologic Neurologic: Denies headache(s) [facility] Medical History Oral contraceptive use (Acute) Seizure disorder (Acute 06/28/15) Smoker (Acute) Family History Mother , at 59 Ovarian cancer Breast cancer Unsure Colon cancer at age 59 Maternal Cousin Colon cancer Father No problems noted. Maternal Grandmother Breast cancer Social History Smoking/Tobacco Use Status: Current every day Quit status: has quit before Alcohol Intake: never Drug use: Never Substance use type: does not use Seatbelt use: always Do you feel safe in your relationship?: Yes Female Reproductive History Menstrual control method: pills History History 1 Para 1 Hx # Term Pregnancies 1 Multiple births Hx # Pregnancies Ectopic pregnancies AB induced Hx Number of Living Children AB spontaneous Exam Const General: cooperative, healthy appearing, comfortable, no acute distress and not ill appearing Orientation: alert, awake and oriented x3 HENMT Head: normal to inspection and normocephalic Ears: hearing grossly normal bilaterally, external ears normal, TM's normal bilaterally and mastoids normal General nose exam: external nose normal, nares normal and other (Audible nasal congestion is appreciated during exam) Face and sinus: normal facial exam Mouth: oral mucosae normal, lip normal, tongue normal, no audible dysphonia, no drooling and no trismus Throat: posterior oropharynx normal, tonsils normal and uvula midline Neck Neck: normal visual inspection, full ROM, no lymphadenopathy and no meningeal signs Resp Effort & Inspection: normal respiratory effort, able to speak in complete sentences and no stridor Auscultation: clear to auscultation bilaterally Cardio Rate: regular rate Rhythm: regular rhythm Heart Sounds: S1 normal and S2 normal Course Vital Signs Vital signs: Vital Signs Temperature 36.7 C 01/02/19 11:20 Pulse 104 H 01/02/19 11:20 Respiratory Rate 20 01/02/19 11:20 Blood Pressure 134/81 01/02/19 11:20 Pulse Oximetry 98 01/02/19 11:20 Temperature 36.7 C 01/02/19 11:20 Temperature Source Temporal Artery Scan 01/02/19 11:20 Pulse 104 H 01/02/19 11:20 Respiratory Rate 20 01/02/19 11:20 Respiratory Effort Non-Labored 01/02/19 11:23 Blood Pressure 134/81 01/02/19 11:20 Pulse Oximetry 98 01/02/19 11:20 Oxygen Delivery Method Room Air 01/02/19 11:20 Oxygen Flow Rate 0 01/02/19 11:20 Pain Level 8 01/02/19 11:20 Lab/Test Results Lab/Test Results: 01/02/19 11:38 Tonsil - Not Specified Streptococcus Screen (ADARSH) - Pending POC Strep Test-BRIAN(Rapid) Start: 01/02/19 11:35 Freq: Status: Active Protocol: Document 01/02/19 11:37 PS (Rec: 01/02/19 11:37 PS [id number]) Strep test-BRIAN(Rapid)-POC POC-Strep test-BRIAN (Rapid) Negative POC-Strep test-BRIAN (Rapid) Negative
== END 2019-01-02 12:00 | disposition home or self-care (01) ==
LOC: ER 11:55
PROVIDERS: Emergency Provider Nurse Practitioner Family; PCP Family Medicine
DX: J06.9 Acute upper respiratory infection, unspecified (principal); F17.210 Nicotine dependence, cigarettes, uncomplicated
CPT/HCPCS: 87880; 99283; 87081

== ENCOUNTER 2019-04-09 15:30 | Emergency (ER) | payer MEDICARE, SELFPAY ==
[2019-04-09 15:45] VITALS: BP 130/81; PULSE 90; RESP 18; TEMP 36.5; O2SAT 99
--- NOTE | 2019-04-09 16:03 | ED.GENADUL_ITS ---
Discharge Plan Disposition Patient Disposition: HOME Condition: Good Discharge Details Chief Complaint: Sorethroat Clinical Impression: PND (post-nasal drip) Primary Care Provider: Harinder Matthews ED Provider: Jamee Bee Home Meds and New Rx's Prescriptions: Continued Microgestin Fe 1.5/30 (28) 1.5 mg-30 mcg (21)/75 mg (7) tablet 1 tab PO DAILY Qty: 84 RF: 5 nicotine 7 mg/24 hr patch 24 hour 1 patch TD Q24H Qty: 28 RF: 3 divalproex [Depakote] 500 mg Tablet,Delayed Release (Dr/Ec) 500 mg PO BID RF: 0 benzonatate 200 mg capsule 200 mg PO TID PRN (Reason: cough) Qty: 30 RF: 0 ibuprofen [IBU] 600 mg tablet 600 mg PO QID PRN (Reason: pain) Qty: 14 RF: 0 Discharge Instructions Instructions: Rhinosinusitis (ED) Additional Instructions: Encourage water intake. Tylenol and/or Ibuprofen as needed for discomfort. Honey or losenges to help with sore throat. Please follow up with primary care within the next week. If you develop fevers/chills, inability to stay hydrated, difficulty breathing or other new/worsening symptoms please seek care urgently once again. Referrals: Harinder Matthews [Primary Care Provider] - Discharge Data Discharge Date/Time-TO BE ENTERED AT DEPARTURE: 04/09/19 17:29 Medical Decision Making Patient is a 33 year old female presenting today with c/c of URI x 3 weeks and progressively worsening sore throat. States that it granado when she swallows. Endorses pain with breathing. No fevers/chills. Tolerating oral intake well. No recent travel. Unknown status. On exam, patient is resting comfortably. No evidence of respiratory distress. Tolerating secretions well. Posterior oropharynx is erythematous but no swelling is noted. Trachea is midline. Lungs are clear. No swelling under the tongue, uvula is midline, no evidence of abscess. Rapid strep negative, testing negative. Patient received viscous lidocaine, tylenol and ibuprofen. She reports I feel the post nasal drip running down my throat. This is likely what is causing her discomfort. Discussed treatment options. I see no evidence of bacterial infection at this time. I see no evidence of swelling to suggest abscess or other emergent etiology requiring intervention at this time. Advised close f/u with PCP. Encouraged water intake. She was given return precautions. I have asked that she f/u with PCP next week for reevaluation if not improved. HPI General Mode of arrival: ambulatory . Date/Time Provider Initiated Documentation: 04/09/19 16:03 . Limitations to Documentation: no limitations . Information obtained by: patient and RN notes reviewed . History of Present Illness 33 year old F presents to the emergency department with the chief complaint of URI with sore throat, described as moderate, with intensity rated at 7. Quality is described as aching, and is localized to the face. Patient reports no radiation. Patient started experiencing this week(s) (2-3) and it has been constant. No relieving factors improve symptom(s), No exacerbating factors reported . Patient notes cough; denies chest pain, diaphoresis, fever/chills, headaches, loss of appetite, nausea/vomiting, rash, shortness of breath and weakness. Patient did receive the following treatments prior to arrival, none Related Data Home Medications Medication Instructions Recorded Confirmed ibuprofen [IBU] 600 mg PO QID PRN #14 tab 12/02/17 11/21/18 divalproex [Depakote] 500 mg PO BID 10/02/18 11/21/18 nicotine 7 mg/24 hr daily 1 patch TD Q24H #28 each 11/21/18 11/21/18 transdermal patch norethindrone 1.5 mg-ethinyl 1 tab PO DAILY #84 tab 11/21/18 11/21/18 estradiol 30 mcg(21)/iron 75 mg(7) tablet benzonatate 200 mg PO TID PRN #30 cap 01/02/19 Previous Rx's Medication Instructions Recorded ibuprofen [IBU] 600 mg PO QID PRN #14 tab 12/02/17 nicotine 7 mg/24 hr daily 1 patch TD Q24H #28 each 11/21/18 transdermal patch norethindrone 1.5 mg-ethinyl 1 tab PO DAILY #84 tab 11/21/18 estradiol 30 mcg(21)/iron 75 mg(7) tablet benzonatate 200 mg PO TID PRN #30 cap 01/02/19 Allergies Allergy/AdvReac Type Severity Reaction Status Date / Time Antihistamines - Alkylamine Allergy Severe Seizure Verified 11/21/18 12:53 General Stated Complaint: Sorethroat ELZA: 3 Review of Systems Constitutional Constitutional: Reports as per HPI and Denies headache(s) Eyes Eyes: Reports as per HPI, Denies eye discharge and Denies irritation ENT Ears, Nose, Mouth, and Throat: Reports as per HPI and Denies headache(s) Cardiovascular Cardiovascular: Reports as per HPI, Denies chest pain and Denies dyspnea Respiratory Respiratory: Reports as per HPI and Denies dyspnea Gastrointestinal Gastrointestinal: Reports as per HPI, Denies abdominal pain, Denies change in bowel habits, Denies nausea and Denies vomiting Integumentary/Breasts Skin/Breast: Reports as per HPI and Denies rash Neurologic Neurologic: Reports as per HPI and Denies headache(s) PFSH Medical History Oral contraceptive use (Acute) Seizure disorder (Acute 06/28/15) Smoker (Acute) Social History Smoking/Tobacco Use Status: Former Tobacco Use Quit status: has quit before Alcohol Intake: never Drug use: Never Substance use type: does not use Seatbelt use: always Do you feel safe in your relationship?: Yes Female Reproductive History Menstrual control method: pills History History 1 Para 1 Hx # Term Pregnancies 1 Multiple births Hx # Pregnancies Ectopic pregnancies AB induced Hx Number of Living Children AB spontaneous Exam Const General: cooperative, healthy appearing, comfortable, no acute distress, well developed and well groomed Nutritional Appearance: well nourished and overweight Orientation: alert and awake HENMT Head: normal to inspection, normocephalic and atraumatic Ears: hearing grossly normal bilaterally, external ears normal and TM's normal bilaterally General nose exam: external nose normal and nares normal Face and sinus: normal facial exam, sinuses nontender and face symmetric Mouth: oral mucosae normal, lip normal, tongue normal, oropharynx normal and moist mucous membranes Teeth and gingiva: dentition normal Throat: posterior oropharynx normal, tonsils normal and uvula midline Eyes General: appearance normal, both eyes and all related structures Neck Neck: normal visual inspection, full ROM, no lymphadenopathy and no meningeal signs Resp Effort & Inspection: normal respiratory effort, able to speak in complete sentences and no respiratory distress Auscultation: clear to auscultation bilaterally, no rales, no rhonchi and no wheezes Cardio Rate: regular rate Rhythm: regular rhythm Heart Sounds: S1 normal and S2 normal Skin General skin exam: no rashes or lesions noted Neuro General: alert and awake Cognition: normal cognition Speech: speech normal Gait: normal gait Psych Appearance: grossly normal and well kempt Mental Status: mental status grossly normal Speech and Movement: speech and movement normal Course Vital Signs Vital signs: Vital Signs Temperature 36.5 C 04/09/19 15:45 Pulse 90 04/09/19 15:45 Respiratory Rate 18 04/09/19 15:45 Blood Pressure 130/81 04/09/19 15:45 Pulse Oximetry 99 04/09/19 15:45 Temperature 36.5 C 04/09/19 15:45 Temperature Source Skin 04/09/19 15:45 Pulse 90 04/09/19 15:45 Respiratory Rate 18 04/09/19 15:45 Respiratory Effort Non-Labored 04/09/19 15:47 Blood Pressure 130/81 04/09/19 15:45 Blood Pressure Position Sitting 04/09/19 15:45 Pulse Oximetry 99 04/09/19 15:45 Oxygen Delivery Method Room Air 04/09/19 15:45 Oxygen Flow Rate 0 04/09/19 15:45 Pain Level 7 04/09/19 15:45 Lab/Test Results Lab/Test Results: 04/09/19 16:03 Tonsil - Not Specified Streptococcus Screen (ADARSH) - Pending POC Strep Test-BRIAN(Rapid) Start: 04/09/19 16:02 Freq: Status: Active Protocol: Document 04/09/19 16:02 TB (Rec: 04/09/19 16:03 TB [id number]) Strep test-BRIAN(Rapid)-POC POC-Strep test-BRIAN (Rapid) Negative POC-Strep test-BRIAN (Rapid) Negative
[2019-04-09] MEDS: Acetaminophen 500 MG TAB 1000 MG PO (16:46)
[2019-04-09] MEDS: Lidocaine 2% Viscous 15 ML CUP PO (16:46)
[2019-04-09] MEDS: Ibuprofen 600 MG TAB PO (16:47)
== END 2019-04-09 17:29 | disposition home or self-care (01) ==
PROVIDERS: Emergency Provider Physician Assistant; PCP Family Medicine
DX: R09.82 Postnasal drip (principal); R05 Cough; J02.9 Acute pharyngitis, unspecified; Z87.891 Personal history of nicotine dependence
CPT/HCPCS: 81025; 87880; 99283; 87081

== ENCOUNTER 2019-08-27 09:21 | Emergency (ER) | payer MEDICARE, OTHER, SELFPAY ==
[2019-08-27 09:28] VITALS: BP 140/99; PULSE 84; RESP 16; TEMP 36.6; O2SAT 98
--- NOTE | 2019-08-27 09:30 | DI.CT_ITS ---
EXAM: CT NECK W CLINICAL HISTORY: right neck, jaw and facial swelling, please ID TECHNIQUE: COMPARISON: CT NECK WITH CONTRAST from 06/20/2017 FINDINGS: CT examination cervical region was performed with intravenous infusion of 100 cc of Omnipaque 350. I mages obtained through the lung apices show no focal intrapulmonary abnormality. Superior mediastina l structures appear intact. Tracheo laryngeal structures appear intact. There is an approximately 3 cm in diameter poorly defined low-attenuation region in the right submand ibular space with apparent enhancing wall, the findings are consistent with a submandibular abscess. There is moderate subcutaneous edema superficial to this finding. Submandibular gland appears gross ly intrinsically intact although there is slight pressure deformity of the right submandibular gland. No other mass or abscess identified in the neck. Mild prominence of cervical nodes noted bilateral ly without a gross gardenia mass parotid glands are unremarkable. Vascular structures appear intact. IMPRESSION: Findings consistent with right submandibular abscess as described above.
--- NOTE | 2019-08-27 09:45 | ED.GENADUL_ITS ---
Discharge Plan Disposition Patient Disposition: CAROLINA ZUÑIGA ([facility]) Condition: Stable Discharge Details Chief Complaint: DentalOral Clinical Impression: Submandibular abscess Primary Care Provider: Harinder Matthews ED Provider: Lida Amador Home Meds and New Rx's Prescriptions: No Action lamotrigine 100 mg tablet 100 mg PO BID RF: 0 naproxen 500 mg tablet 500 mg PO DAILY PRNRF: 0 Discharge Data Discharge Date/Time-TO BE ENTERED AT DEPARTURE: 08/27/19 20:21 Medical Decision Making Is a 33-year-old patient presenting for right jaw swelling. Patient describes 2 days of right jaw swelling beneath the mandible. Patient describes onset of swelling over the last 2 days which is continued to worsen. Patient reports now experiencing difficulty opening her jaw and she does have about a 2 cm trismus. Patient has a notable area of swelling to the right side of her jaw. Please see HPI for the remainder of patient's history. On physical exam patient does have notable swelling which is tense and tender to the right jaw inferior to the mandible which does extend toward the anterior neck beneath the chin. Patient does have tenderness beneath the chin. Patient does not have any notable dental pain with palpation or focal abscess which is noted on exam. Patient does have tenderness extending toward the ear but no focal swelling in the preauricular space. Patient is able to flex and extend neck without difficulty. No significant voice change. Patient is able to manage her own secretions. Patient denies any sensation of airway obstruction specifically she denies any difficulty breathing or shortness of breath or wheezing. Patient last took Naprosyn at approximately midnight. Patient denies any fever, chills or ill feeling whatsoever. No history of similar. Patient is having some difficulty taking her daily medications due to painful swallowing. Patient does report reports she has missed 2 doses of her Depakote. Although patient has had some difficulty managing oral fluids in the last 24 hours she does report she feels well hydrated. We will plan to provide IV fluid At this time differential diagnosis includes possible dental abscess, submandibular or parotid swelling. However must consider the possibility of Stanislaw's angina as patient does have swelling extending toward the anterior neck. There is no subcutaneous emphysema present. We will plan to CT to rule out developing Shay's versus other possible etiology of patient's symptoms. Patient is nontoxic-appearing at this time. Patient originally declined any Motrin or Tylenol for symptomatic relief however we discussed patient's management of pain control and offered Toradol which patient consents to at this time. CT reveals submandibular abscess 3 to 3-1/2 cm well formed. Call to ENT, Dr. Upton, discussed case, he will review images and call back. Per CT imaging and Dr. Upton's interpretation he feels likely this is of dental etiology Spoke again with ENT after reviewing images and he recommends transfer to tertiary care facility where likely patient will require drainage and dental extraction. Called [facility] transfer center, discussed case. They will call back, require facesheet and pushing through images Spoke with [facility] who recommended transfer to [facility] given there are or almaxillary coverage is more ideal. Spoke with [facility] who recommends images be pushed through and they will call back. Spoke with [facility] ENT, discussed case, reviewed images, who recommends De cadron 10 mg IV as well as Unasyn and they will call back as her bed volume is high and they will callback to let me know if they are able to accept this patient. [facility] due to high volume unable to accept this patient's case. Patient provided additional pain medication for management of her symptoms. Patient provided Unasyn 3 g IV pending placement Called to [place] who is unable to accept this patient Call to [facility] who does not have an oral surgery and cannot accept this patient Patient's pain continues to worsen despite multiple doses of pain medication therefore called back to ENT Dr. Upton to evaluate patient at the bedside for consideration of aspiration of abscess due to patient's worsening symptoms. Dr. Upton evaluated patient in the emergency room drained approximately 10 to 15 cc of bloody purulent drainage. Does recommend transfer to the emergency room after his evaluation. Due to patient swelling now extending toward the right side, soft tissue swelling beneath the chin. Patient has no obvious sublingual swelling or tongue elevation at this time however he is concerned with the possibility of development of Stanislaw's angina within the next few hours and does recommend if transfer is required to a more distant facility that patient may require intubation for controlled airway management. Greater than 35 minutes of critical care time was spent at the bedside with this patient trying to manage neck swelling, review imaging and plan for appropriate transfer due to the concern of potential airway obstruction and imminent risk of decompensation. Patient provided additional 1 mg of Dilaudid. Patient provided additional clindamycin IV Wound culture sent Re-paged to [facility] to reconsider patient's admission given her increased in acuity. Dr. Upton also spoke with [facility]. [facility] called back unwilling to accept this patient's admission due to volume Called back to [facility] to request reconsideration of patient's case and admission. Pending callback. Both myself and Dr. Upton spoke with [facility] for reconsideration of admission. Ultimately they are willing to accept patient's transfer at this time. Patient will be transferred ED to ED. Dr. Upton feels patient does not require intubation prior to this transfer based on his reevaluation of the patient after aspiration of abscess. We will plan to transfer via [facility]. Plan to attempt to provide patient's Lamictal orally prior to transfer to prevent possibility of seizure in route. Patient agrees with this plan of care. HPI General Date/Time Provider Initiated Documentation: 08/27/19 09:32 . HPI Narrative: This is a 33-year-old patient presenting the emergency room for 2 days of acute right jaw and facial swelling. Patient presents to the emergency room today as she is unable to fully open her mouth. Patient reports she has significant righ t jaw swelling which began somewhat abruptly noted beneath the right jawline. Patient denies obvious dental pain. Patient does have known dental caries. Patient denies any fevers, chills. Patient does report in the last 2 days area of swelling has continued to persist. No waxing and waning character despite eating or drinking. Patient has had difficulty eating and drinking specifically patient is having difficulty taking her seizure medications at this time. Patient denies any difficulty breathing of shortness of breath or wheezing. Patient denies any headache or dizziness. Denies any history of similar. Mild radiation toward right ear. Pain in the right side of her neck. No chest pain. No injury or trauma noted. No skin rash. Related Data Home Medications Medication Instructions Recorded Confirmed lamotrigine 100 mg PO BID 08/27/19 08/27/19 naproxen 500 mg PO DAILY PRN 08/27/19 08/27/19 Allergies Allergy/AdvReac Type Severity Reaction Status Date / Time Antihistamines - Alkylamine Allergy Severe Seizure Verified 11/21/18 12:53 General Stated Complaint: DentalOral ELZA: 3 Review of Systems All systems reviewed & are unremarkable except as noted in HPI and below PFSH Medical History Oral contraceptive use (Acute) Seizure disorder (Acute 06/28/15) Smoker (Acute) Social History Smoking/Tobacco Use Status: Former Tobacco Use Quit status: has quit before Alcohol Intake: never Drug use: Never Substance use type: does not use Seatbelt use: always Do you feel safe at home: Yes Do you feel safe in your relationship?: Yes Female Reproductive History Menstrual control method: pills History History 1 Para 1 Hx # Term Pregnancies 1 Multiple births Hx # Pregnancies Ectopic pregnancies AB induced Hx Number of Living Children AB spontaneous Exam Narrative Exam Narrative: CONST: Healthy appearing patient, in no acute distress. Well hydrated. Alert and oriented. HENMT: Head nomocephalic, normal to inspection. Atraumatic. Hearing grossly normal. TMs appear normal bilaterally. Patient has moderate right facial swelling noted beneath the jawline which is tense, painful with palpation and does extend toward the chin on the right. Tenderness with palpation inferior to the chin, right jawline and right side of her neck. No crepitus or subcutaneous emphysema present. No erythema to the skin. No open wounds. Patient has no significant noted dental tenderness with palpation or abscess at the gumline. Patient does have some sublingual tenderness and erythema present. Mild pharyn geal erythema present without exudates or obvious swelling. Mild trismus present patient is able to open her mouth approximately 2 cm. EYES: General normal appearance. Alignment normal. Eyelids normal. Conjunctiva normal. NECK: Normal visual inspection. FROM. Trachea midline. No Midline tenderness. See above description of neck, mild swelling into the right superior aspect of her neck beneath the jawline. No significant cervical lymphadenopathy present. CHEST: Normal insepection of the chest. RESP: Normal respiratory effort. Speaking full sentences. No cough. No audible wheezing. No retractions. CARDIO: No JVD. MUSCULOSKELETAL: Normal Gait. FROM of all extremities. SKIN: Normal. Dry. No rashes. NEURO: Alert and awake. Speech clear. PSYCH: Normal affect. Cooperative. Course Vital Signs Vital signs: Vital Signs Temperature 36.6 C 08/27/19 09:28 Pulse 84 08/27/19 09:28 Respiratory Rate 16 06/24/20 09:28 Blood Pressure 140/99 H 08/27/19 09:28 Pulse Oximetry 98 08/27/19 09:28 Temperature 36.6 C 08/27/19 09:28 Temperature Source Tympanic 08/27/19 09:28 Pulse 84 08/27/19 09:28 Respiratory Rate 16 08/27/19 09:28 Respiratory Effort Non-Labored 08/27/19 09:33 Blood Pressure 140/99 H 08/27/19 09:28 Blood Pressure Position Sitting 08/27/19 09:28 Pulse Oximetry 98 08/27/19 09:28 Oxygen Delivery Method Room Air 08/27/19 09:28 Oxygen Flow Rate 0 08/27/19 09:28 Pain Level 8 08/27/19 09:33 Critical Care Time Critical Care Time Critical Care Time: Yes Total Critical Care Time: 40 Attestation: Greater than 35 minutes was spent managing patient's imminent life threats including neck swelling concern for potential impingement of her airway. Please see note
[2019-08-27] MEDS: Ketorolac 15 MG/ML VIAL IVP (09:58)
[2019-08-27] MEDS: Normal Saline 1,000 ML 1000 ML IV (09:59)
[2019-08-27 10:06] LABS: Abs Immature Grans 0.03 k/cumm (0.0-0.09); Absolute Basophil Count 0.01 k/cumm (0.0-0.2); Absolute Monocyte Count 1.07 k/cumm (0.11-0.7); Absolute Neutrophil Count 9.41 k/cumm (1.2-6.7); Basophils % 0.1; Eosinophils % 0.6; HGB 14.6 g/dL (12.0-15.5); Immature Grans % 0.2 %; Lymphocytes % 16.7; Mean Corp. HGB Concentration 34.8 g/dL (32.0-36.0); Mean Corpuscular Hemoglobin 32.6 pg (27.0-33.0); Mean Corpuscular Volume 93.8 fL (80-95); Mean Platelet Volume 10.2 fL (8.0-11.0); Monocytes % 8.4; Platelet Count 337 x1000/uL (130-400); RBC 4.48 m/cumm (4.00-5.20); RBC Distribution Width 12.7 % (11.7-14.6); White Blood Cell Count 12.72 k/cumm (4.4-10.8)
[2019-08-27 10:11] LABS: Absolute Eosinophil Count 0.08 k/cumm (0.0-0.7); Absolute Lymphocyte Count 2.12 k/cumm (1.2-3.4)
[2019-08-27 10:19] LABS: ALT 22 U/L (14-59); AST 13 U/L (15-37); Albumin 4.2 g/dL (3.4-5.0); Alkaline Phosphatase 98 U/L (46-116); Anion Gap 8.8 mmol/L (3-11); BUN 6 mg/dL (7-18); Bilirubin, Total 0.6 mg/dL (0.2-1.0); CO2 27.2 mmol/L (21.0-32.0); CREATININE 0.79 mg/dL (0.55-1.02); Chloride 103 mmol/L (98-107); Glucose 109 mg/dL (74-106); Sodium 139 mmol/L (136-145); Total Protein 7.4 g/dL (6.4-8.2)
[2019-08-27 12:09] VITALS: BP 138/94; PULSE 85; RESP 20; TEMP 36.8; O2SAT 95
[2019-08-27] MEDS: Omnipaque 350 MG/ML 100 ML BTL IJ (12:34)
[2019-08-27] MEDS: Normal Saline - Diluent 50 ML VIAL IV (12:35)
[2019-08-27] MEDS: HYDROmorphone 2 MG/ML VIAL 0.5 MG IVP (15:25)
[2019-08-27 16:12] VITALS: BP 149/91; PULSE 89; RESP 16; TEMP 36.5; O2SAT 94
[2019-08-27] MEDS: Dexamethasone 10 MG/ML VIAL IVP (17:08)
[2019-08-27] MEDS: AMPICILLIN/SULBACTAM 3 GM in Normal Saline 100 ML IVPB (17:09)
[2019-08-27] MEDS: HYDROmorphone 2 MG/ML VIAL 1 MG IVP (18:23)
--- NOTE | 2019-08-27 18:36 | OPPNE_ITS ---
Procedure Note Requesting provider Marina Reason for consult: Right submandibular abscess with surrounding cellulitis History of current condition: The patient reports that her right posterior mandibular molar fractured approximately 1 week ago, and several days ago, she began to develop increasing pain in the region of her right angle of mandible. She began to develop progressive swelling and trismus. As a result she was seen and evaluated in the emergency room. She underwent CT scan which revealed a right-sided neck abscess along the posterior medial and inferior aspect of the mandible on the right. There was fatty streaking. There was no floor of mouth elevation. There was mild displacement of the tissues. She was given a dose of Unasyn, Solu-Medrol, Toradol, and after review of the films, I recommend transfer to a facility with oral maxillofacial surgery to address the offending tooth, and the resultant abscess. I was asked to see the patient as they are working on the transfer to make sure that we could drain some of the abscess, and hopefully relieve some of the pressure. Physical exam: Awake alert and oriented x3. Clearly in discomfort. Her weight is stable. She does not have a hot potato voice. There is no stridor or stertor. HEENT: The patient has trismus at 1.5 cm between the incisors. There is no floor of mouth elevation. There is no woody edema along the floor of mouth. The tongue is not elevated. The airway is stable. The oropharynx appears unremarkable. Her submandibular region is edematous and swollen with a tense fluctuant abscess in the right submandibular triangle, adherent to the mandible. There is no crepitance. There is no breakdown of the skin. Her right posterior molar is fractured along the mandible and tender to palpation. There is no surrounding edema or erythema. Procedure: I reviewed the findings with the patient. I recommended needle aspiration of the abscess. We discussed the risks including bleeding, and damage to the marginal mandibular nerve. She wished to proceed. The patient was prepped and draped in appropriate fashion. 1% lidocaine with 1/100,000 epinephrine was i njected into the skin and subcutaneous tissues overlying the abscess. A 14- gauge Angiocath was introduced into the abscess, and roughly 15 cc of bloody purulent malodorous debris was expressed. A second pass into the area failed to reveal any further purulent debris. There was no significant bleeding. The marginal mandibular nerve remained intact. Recommendations: I spoke with the ER attendings, and recommended transfer to a urgent care center locally, and if not able to do this, I believe the patient should be intubated to guard against the progression to Ludewig's angina. They will continue antibiotics. I will stay present until we have a plan for transfer or intubation. .
[2019-08-27] MEDS: CLINDAMYCIN 900 MG/50 ML BAG 50 MG IVPB (19:07)
[2019-08-27 19:11] VITALS: BP 126/77; PULSE 83; RESP 14; O2SAT 95
--- NOTE | 2019-08-27 19:29 | NUR.NOTE ---
Pt reports continued 6/10 pain to right jaw. Speaking in full sentences. Airway patent. No snoring when sleeping. Plan for transfer. Clinda infusing.
[2019-08-27 19:59] VITALS: BP 125/75; PULSE 92; RESP 16; TEMP 36.6; O2SAT 96
[2019-08-27] MEDS: lamoTRIgine 100 MG TAB PO (20:21)
--- NOTE | 2019-08-27 20:45 | NUR.NOTE ---
Report to Zac at [facility]. Pt transported out via [facility] [facility] at [email or web address]
== END 2019-08-27 20:21 | disposition short-term general hospital (02) ==
PROVIDERS: Emergency Provider Physician Assistant; PCP Family Medicine
DX: K12.2 Cellulitis and abscess of mouth (principal); R25.2 Cramp and spasm
CPT/HCPCS: 36415; 36416; 70491; 80053; 82962; 87077; 96361; 96365; 96367; 96375; 96376; 99285; 85025; 87070; 87186; 87205; J0295; J1100; J1885; J3490

== ENCOUNTER 2019-11-26 01:52 | Outpatient (CLI) | payer MEDICARE, MEDICAID, SELFPAY ==
[2019-11-26 15:27] LABS: Abs Immature Grans 0.02 10^3/uL (0.0-0.06); Absolute Basophil Count 0.02 10^3/uL (0.0-0.2); Absolute Eosinophil Count 0.12 10^3/uL (0.0-0.7); Absolute Lymphocyte Count 3.79 10^3/uL (1.2-3.4); Absolute Monocyte Count 0.64 10^3/uL (0.1-0.8); Basophils % 0.2; Eosinophils % 1.1; HCT 37.8 % (36.0-46.0); HGB 13.2 g/dL (11.2-15.7); Immature Grans % 0.2; Lymphocytes % 33.6; MCH 32.5 pg (27.0-33.0); MCHC 34.9 % (32.0-36.0); MCV 93.1 fL (80-95); MPV 9.7 fL (8.0-11.0); Monocytes % 5.7; Neutrophils % 59.2; Nucleated RBC 0 %; Platelet Count 291 10^3/uL (130-400); RBC 4.06 10^6/uL (3.93-5.22); RDW 12.3 % (11.7-14.6); RDW-SD 42.4 fL; WBC 11.29 10^3/uL (4.4-10.8)
[2019-11-26 15:28] LABS: Absolute Neutrophil Count 6.68 10^3/uL (1.2-6.7)
[2019-11-26 15:48] LABS: Glucose,1 Hr (Glucola) 112 mg/dL (80-140)
[2019-11-26 16:26] LABS: *AMPHETAMINES SCREEN URINE Negative (Negative); *BARBITURATES SCREEN URINE Negative (Negative); *BENZODIAZEPINES SCREEN URINE Negative (Negative); Cannabinoids THC Negative (Negative); Cocaine Screen,Urine Negative (Negative); METHADONE URINE SCREEN Negative (Negative); OPIATES URINE SCREEN Negative (Negative)
[2019-11-26 16:27] LABS: Tricyclic Antidepressants Negative (Negative)
[2019-11-27 11:27] LABS: Hepatitis B Surface Ag Negative (Negative)
[2019-11-27 12:06] LABS: HIV-1/2 Ag & Ab Screen Negative (Negative)
[2019-11-27 12:15] LABS: Hepatitis C Ab w Rflx HCV PCR Negative (Negative)
[2019-11-27 15:10] LABS: Chlamydia Result Negative (Negative); GC Result Negative (Negative)
[2019-11-27 17:14] LABS: Varicella IgG Antibody Positive (See Note)
[2019-11-27 17:16] LABS: Rubella IgG Ab (UVM) Positive (See Note)
[2019-11-28 13:03] LABS: Syphilis Total Ab w/Reflex Nonreactive (Nonreactive)
[2019-12-03 11:20] LABS: Buprenorphine Negative; Norbuprenorphine Negative
== END 2019-11-26 02:12 ==
PROVIDERS: PCP Family Medicine; Visit Provider Advanced Practice Midwife
DX: Z34.91 Encounter for supervision of normal pregnancy, unspecified, first trimester (principal); G40.909 Epilepsy, unspecified, not intractable, without status epilepticus
CPT/HCPCS: 36415; 80307; 82950; 86787; 86803; 86850; 86900; 86901; 87340; 87389; 87491; 87591; 85025; 86762; 86780; 87086

== ENCOUNTER 2020-05-17 03:07 | Outpatient (CLI) | payer MEDICARE, MEDICAID, SELFPAY ==
[2020-05-17 12:34] LABS: ALT 17 U/L (14-59); AST 12 U/L (15-37); Albumin 2.8 g/dL (3.4-5.0); Alkaline Phosphatase 138 U/L (46-116); BUN 6 mg/dL (7-18); Bilirubin, Direct 0.1 mg/dL (0.0-0.2); Bilirubin, Total 0.2 mg/dL (0.2-1.0); CREATININE 0.5 mg/dL (0.55-1.02); Calcium 9.1 mg/dL (8.5-10.1); Chloride 104 mmol/L (98-107); Glucose 79 mg/dL (74-106); Lipase 90 U/L (73-393); Sodium 139 mmol/L (136-145); Total Protein 6.2 g/dL (6.4-8.2)
== END 2020-05-17 03:08 | disposition home or self-care (01) ==
LOC: LOS 03:07
PROVIDERS: PCP Family Medicine; Visit Provider Family Medicine
DX: R10.11 Right upper quadrant pain (principal)
CPT/HCPCS: 36415; 80048; 80076; 83690

== ENCOUNTER 2021-03-23 01:05 | Outpatient (CLI) | payer MEDICARE, OTHER, MEDICAID, SELFPAY ==
--- NOTE | 2021-03-23 | DI.US_ITS ---
Exam(s) US PELVIS TRANSVAGINAL EXAM: US PELVIS TRANSVAGINAL CLINICAL HISTORY: ACUTE PELVIC PAIN,R10.2,5 CM CYSTIC MASS ON POC ULTRASOUND TECHNIQUE: Ultrasound performed using standard protocol. COMPARISON: US US LOWER EXTREMITY VASCULAR LT from 12/03/2017 FINDINGS: Pelvic ultrasound was performed transabdominally and transvaginally. Uterus measures 7 x 2.9 x 3.3 c m. Endometrial stripe is 12 millimeters in thickness and appears homogeneous. Nabothian cysts are n oted, the largest about 1 cm in diameter.. Right ovary was nonvisualized due to overlying bowel gas. Left ovary is grossly unremarkable and chente sures 18 x 11 x 11 millimeters. Limited scanning of the kidneys was unremarkable. There is no free fluid in the cul-de-sac. IMPRESSION: 1 cm presumed nabothian cysts noted. No significant findings. Right ovary nonvisualized. DATA REPOSITORY:
== END 2021-03-23 01:25 ==
PROVIDERS: PCP Family Medicine; Visit Provider Family Medicine
DX: R10.2 Pelvic and perineal pain (principal); N88.8 Other specified noninflammatory disorders of cervix uteri
CPT/HCPCS: 76830; 76856

== ENCOUNTER 2021-03-24 18:16 | Outpatient (REF) | payer MEDICARE, MEDICAID, SELFPAY ==
[2021-03-24 14:27] LABS: Abs Immature Grans 0.03 10^3/uL (0.0-0.06); Absolute Basophil Count 0.04 10^3/uL (0.0-0.2); Absolute Eosinophil Count 0.14 10^3/uL (0.0-0.7); Absolute Lymphocyte Count 2.86 10^3/uL (1.2-3.4); Absolute Monocyte Count 0.46 10^3/uL (0.1-0.8); Absolute Neutrophil Count 6.56 10^3/uL (1.2-6.7); Basophils % 0.4; Eosinophils % 1.4; HCT 41.9 % (36.0-46.0); HGB 13.9 g/dL (11.2-15.7); Immature Grans % 0.3; Lymphocytes % 28.3; MCH 31.4 pg (27.0-33.0); MCHC 33.2 % (32.0-36.0); MCV 94.8 fL (80-95); MPV 10.4 fL (8.0-11.0); Monocytes % 4.6; Nucleated RBC 0 %; Platelet Count 322 10^3/uL (130-400); RBC 4.42 10^6/uL (3.93-5.22); RDW 12.3 % (11.7-14.6); WBC 10.09 10^3/uL (4.4-10.8)
[2021-03-24 14:42] LABS: ALT 20 U/L (14-59); AST 12 U/L (15-37); Albumin 4.3 g/dL (3.4-5.0); Alkaline Phosphatase 94 U/L (46-116); Anion Gap 7.6 mmol/L (3-11); BUN 7 mg/dL (7-18); Bilirubin, Total 0.3 mg/dL (0.2-1.0); CO2 28.4 mmol/L (21.0-32.0); CREATININE 0.8 mg/dL (0.55-1.02); Calcium 9.5 mg/dL (8.5-10.1); Chloride 105 mmol/L (98-107); Glucose 90 mg/dL (74-106); Potassium 3.9 mmol/L (3.5-5.1); Sodium 141 mmol/L (136-145); Total Protein 6.9 g/dL (6.4-8.2)
== END 2021-03-24 18:17 | disposition home or self-care (01) ==
LOC: NCHCN 18:16
PROVIDERS: PCP Family Medicine; Visit Provider Family Medicine
DX: R10.2 Pelvic and perineal pain (principal)
CPT/HCPCS: 80053; 85025

== ENCOUNTER 2021-04-06 00:42 | Outpatient (CLI) | payer MEDICARE, OTHER, MEDICAID, SELFPAY ==
[2021-04-06] MEDS: Omnipaque 350 MG/ML 100 ML BTL IJ (09:08)
[2021-04-06] MEDS: Normal Saline Flush 10 ML SYR IVP (09:11)
[2021-04-06] MEDS: Breeza Beverage 473 ML BTL PO ×2 (09:11→09:12)
[2021-04-06] MEDS: Omnipaque 350 MG/ML 50 ML BTL PO (09:12)
--- NOTE | 2021-04-06 09:20 | DI.CT_ITS ---
Exam(s) CT ABDOMEN PELVIS W EXAM: CT ABDOMEN PELVIS W CLINICAL HISTORY: ACUTE ABD PAIN,R10.9. TECHNIQUE: Imaging Protocol: Axial computed tomography images with coronal and sagittal reformatted images were created and reviewed CONTRAST MATERIAL: Intravenous: Omnipaque 350 Contrast volume:100 ml Oral: yes COMPARISON: CT ABD PELVIS WITH CONTRAST from 03/29/2016 FINDINGS: ABDOMEN: Lung Bases: Normal where visualized. Liver: Normal density. No measurable mass. Gallbladder and biliary tract: No radiodense calculus or dilation. Pancreas: Normal density, no abnormal calcifications or inflammatory process. Spleen: Normal. Kidneys: Normal size, contour and axis. No radiodense stones or obstructive uropathy. No masses seen. Adrenal glands: No masses seen. Abdominal Aorta: Abdominal portion non-dilated. PELVIS: Bladder: No gross wall thickening. No calculi.No focal mass. Bowel: No obstruction or bowel wall thickening. Appendix normal. Peritoneal cavity: No ascites, collection or mesenteric inflammatory response. Bones: Within normal limits for age. Reproductive organs: Within normal limits. Lymph nodes: Unremarkable. Impression: Unremarkable CT scan of the abdomen and pelvis. RADIATION DOSE DELIVERED: 1,048.35mGy.cm Total DLP DATA REPOSITORY: All CT scans at this facility are submitted to the National Radiology Data Registry (NRDR) Dose Index Registry (DIR) with the [employer] [place] [employer] (A[employer]). RADIATION OPTIMIZATION: All CT scans at this facility use at least one of these dose optimization te chniques: automated exposure control; mA and/or kV adjustment per patient size (includes targeted exa ms where dose is matched to clinical indication); or iterative reconstruction.
== END 2021-04-06 01:02 ==
PROVIDERS: PCP Family Medicine; Visit Provider Family Medicine
DX: R10.9 Unspecified abdominal pain (principal)
CPT/HCPCS: 74177; J3490; Q9967

== ENCOUNTER 2021-08-18 17:34 | Outpatient (REF) | payer MEDICARE, OTHER, MEDICAID, SELFPAY ==
[2021-08-22 14:38] LABS: Chlamydia Result Negative (Negative); GC Result Negative (Negative)
== END 2021-08-18 17:35 | disposition home or self-care (01) ==
LOC: LBN 17:34
PROVIDERS: PCP Family Medicine; Visit Provider Obstetrics & Gynecology Gynecology
DX: Z11.3 Encounter for screening for infections with a predominantly sexual mode of transmission (principal)
CPT/HCPCS: 87491; 87591

== ENCOUNTER 2021-08-24 11:38 | Outpatient (CLI) | payer MEDICARE, OTHER, MEDICAID, SELFPAY ==
[2021-08-26 10:29] LABS: Hepatitis C Ab w Rflx HCV PCR Negative (Negative)
[2021-08-26 10:42] LABS: HIV-1/2 Ag & Ab Screen Negative (Negative)
[2021-08-28 14:44] LABS: Syphilis IgG w/Reflex Nonreactive (Nonreactive)
== END 2021-08-24 11:39 | disposition home or self-care (01) ==
LOC: LBO 12:01
PROVIDERS: PCP Family Medicine; Visit Provider Obstetrics & Gynecology Gynecology
DX: Z11.4 Encounter for screening for human immunodeficiency virus [HIV] (principal); Z11.3 Encounter for screening for infections with a predominantly sexual mode of transmission; Z11.59 Encounter for screening for other viral diseases; R35.0 Frequency of micturition
CPT/HCPCS: 36415; 86803; 87389; 86780

== ENCOUNTER 2021-09-21 20:16 | Emergency (ER) | payer MEDICARE, MEDICAID, SELFPAY | END 2021-09-21 21:20 | disposition LWBS | PROVIDERS: PCP Family Medicine | DX: Z53.29 Procedure and treatment not carried out because of patient's decision for other reasons (principal) ==

== ENCOUNTER 2021-09-22 11:06 | Outpatient (REF) | payer MEDICARE, MEDICAID, SELFPAY | END 2021-09-22 11:07 | disposition home or self-care (01) | LOC: LBN 11:06 | PROVIDERS: PCP Family Medicine; Visit Provider Nurse Practitioner Family | DX: J02.9 Acute pharyngitis, unspecified (principal) | CPT/HCPCS: 87070 ==

== ENCOUNTER 2021-12-27 10:28 | Emergency (ER) | payer MEDICARE, MEDICAID, SELFPAY ==
[2021-12-27 10:34] VITALS: BP 122/93; PULSE 89; RESP 18; TEMP 36.6; O2SAT 97
[2021-12-27 10:55] LABS: Bilirubin Negative (Negative); Blood Negative (Negative); Clarity Clear (Clear); Glucose Negative (Negative); Ketones Negative (Negative); Leukocyte Esterase Negative (Negative); Nitrite Negative (Negative); Urobilinogen 0.2 EU/dL (Up TO 0.2)
[2021-12-27 11:03] LABS: Abs Immature Grans 0.05 10^3/uL (0.0-0.06); Absolute Basophil Count 0.01 10^3/uL (0.0-0.2); Absolute Lymphocyte Count 2.01 10^3/uL (1.2-3.4); Absolute Monocyte Count 0.77 10^3/uL (0.1-0.8); Basophils % 0.1; Eosinophils % 1.4; HCT 41.9 % (36.0-46.0); HGB 14.1 g/dL (11.2-15.7); Immature Grans % 0.4; Lymphocytes % 14.4; MCH 31.5 pg (27.0-33.0); MCHC 33.7 % (32.0-36.0); MCV 94 fL (80-95); MPV 9.4 fL (8.0-11.0); Monocytes % 5.5; Neutrophils % 78.2; Platelet Count 303 10^3/uL (130-400); RBC 4.47 10^6/uL (3.93-5.22); RDW 12.8 % (11.7-14.6); RDW-SD 44.6 fL; WBC 13.94 10^3/uL (4.4-10.8)
--- NOTE | 2021-12-27 11:06 | ED.GENADUL_ITS ---
Discharge Plan Disposition Patient Disposition: STILL A PATIENT Condition: Stable Discharge Details Chief Complaint: Abd Prob Clinical Impression: Abdominal pain Primary Care Provider: Harinder Matthews ED Provider: Ricky Uriarte Home Meds and New Rx's Prescriptions: No Action folic acid 1 mg tablet 3 mg PO DAILY Label Comments: Takes one in the morning and 2 at night. multivitamin [Daily Multi-Vitamin] Tablet 1 tab PO DAILY Kyleena 17.5 mcg/24 hrs (5 yrs) 19.5 mg intrauterine device 1 device intrauterine ONCE Qty: 1 0RF Rx Instructions: as a single dose lamotrigine 100 mg tablet 100 mg PO BID Label Comments: TAKE ONE TABLET BY MOUTH TWICE A DAY Medical Decision Making This is a 36-year-old female with a past medical history includes seizure disor adebayo, x2, tubal ligation, presenting for a right sided abdominal pain associated with nausea that began yesterday. Reports her last meal was last night. No p.o. intake today. Clinically she appears uncomfortable, does have reproducible right-sided abdominal pain that is quite moderate. Plan to obtain IV access, give IV fluid, Zofran, morphine and obtain routine screening laboratory values. Patient continues to have significant right-sided pain, unrelieved with morphine. We will provide 1 mg IV Dilaudid. White blood cell count of 13.94, otherwise laboratory values are grossly un remarkable. Plan to pursue CT imaging. CT imaging unremarkable. Continues to have moderate right-sided abdominal pain. Pain appears to be mid abdomen, no true McBurney point tenderness, pelvic pain, Sanchez sign. Given her significant discomfort, leukocytosis, I am concerned that there is an etiology of her discomfort today being overlooked. Case discussed with Dr. Arreguin, surgical team, who plans to come evaluate the patient around 3 PM. In the meantime we will obtain a ultrasound of her abdomen and pelvis as we can better assess for potential ovarian torsion, small renal stone potentially missed with CT imaging with IV contrast, further assessment of potential biliary etiology. Patient made aware of this plan and is agreeable. Ultrasound unremarkable. Awaiting surgical consultation This documentation was generated using [employer] system, please disregard any oddities of phrase or misspellings. Medical Records Medical records reviewed: Yes I reviewed the patient's medical records. Imaging Data Radiologic Study: Attestation: I personally reviewed and interpreted this imaging study as follows: Imaging: CT Scan Radiologist's impression: Exam(s) CT ABDOMEN PELVIS W EXAM: CT ABDOMEN PELVIS W CLINICAL HISTORY: R sided pain, leukocytosis. TECHNIQUE: Imaging Protocol: Axial computed tomography images with coronal and sagittal reformatted images were created and reviewed CONTRAST MATERIAL: Intravenous: Omnipaque 100cc Oral: None COMPARISON: CT CT ABDOMEN PELVIS W from 04/06/2021 FINDINGS: VISUALIZED LUNG BASES: No nodules nor pleural effusions evident. ABDOMEN: There is no ascites. LIVER: There are no focal hepatic lesions evident . GALLBLADDER/BILIARY: No obvious gallbladder pathology. CBD is not dilated. PANCREAS: No evidence of pancreatic mass nor dilatation of the pancreatic duct. SPLEEN: Spleen is not enlarged. No obvious intrasplenic lesions. Splenic and portal veins are patent. ADRENALS: There are no significant adrenal masses. KIDNEYS:No cysts evident. No solid renal masses. No calculi nor hydronephrosis.. ABDOMINAL AORTA: Abdominal aorta is not enlarged. LYMPH NODES:There is no retroperitoneal nor paraaortic adenopathy. ABDOMINAL WALL: No evidence of significant anterior abdominal wall nor inguinal hernia. GI: There is no evidence of bowel obstruction, free air, nor abscess. PELVIS: GI: No evidence of appendicitis.No evidence of sigmoid diverticulitis. LYMPH NODES: There is no intrapelvic nor inguinal adenopathy. REPRODUCTIVE: There is an IUD now noted in the uterine cavity, not previously present. This appears to be in satisfactory position within the anteverted uterus. URINARY BLADDER: No calculi nor obvious masses evident OSSEOUS: No significant osseous lesions. No fractures. L3 limbus vertebra again noted. IMPRESSION: 1. No significant acute findings on this CT scan of the abdomen pelvis. 2. When compared to prior CT scan of April 2021 there has been interval placement of an IUD which appears to be in satisfactory position in the uterus. There are no abnormal adnexal findings.. No free fluid. 3. No evidence of appendicitis nor diverticulitis. Radiologic Study #2: Attestation: I personally reviewed and interpreted this imaging study as follows: Imaging: Ultrasound Radiologist's impression: This report is currently processing and HAS NOT BEEN OFFICIALLY SIGNED BY THE PHYSICIAN - ESTIMATED TIME OF APPROVAL IS 12/27/2021 15:27. Exam(s) US ABDOMEN PELVIS EXAM: US ABDOMEN PELVIS CLINICAL HISTORY: R sided pain, 14 wbc TECHNIQUE: Ultrasound of complete upper abdomen performed using standard protocol. COMPARISON: US US PELVIS TRANSVAGINAL from 03/23/[address] ABDOMEN PELVIS W from 12/27/2021 FINDINGS: There is no ascites evident. LIVER: There are no hepatic lesions evident nor obvious dilatation of intrahepatic ducts. GALLBLADDER/BILIARY: There are no gallstones. No gallbladder wall edema nor pericholecystic fluid. The common hepatic duct isnot dilated, measuring 3mm at the level of roderick hepatis. PANCREAS: There is no evidence of pancreatic mass nor dilatation of the pancreatic duct. SPLEEN: The spleen is not enlarged and there are no intrasplenic lesions evident. KIDNEYS:Kidneys exhibit normal size with no evidence of solid mass, calculus, nor hydronephrosis. No cortical cysts evident. ABDOMINAL AORTA: There is no evidence of abdominal aortic aneurysm. IVC: Normal diameter where visualized. PELVIS: Uterus: There is an IUD in satisfactory position in the endometrial canal. No obvious fibroids evident. Ovaries: Small cysts in both ovaries consistent with follicular cysts. The 1 on the right measures 1.6 x 1.7 cm. One on the left measures 1.5 x 1.3 cm. No ominous adnexal masses. No ovarian torsion evident. No free fluid. No extraovarian adnexal masses evident. IMPRESSION: 1. No evidence of cholelithiasis nor dilatation of the biliary tree. 2. No other significant ultrasound findings in the upper abdomen. 3. There is no ascites. 4. There are follicular cysts in both ovaries with some size measurements as above. 5. IUD is noted in satisfactory position in the endometrial canal of the uterus. Lab Data Lab results reviewed: Yes I reviewed the patient's lab results. Labs: Laboratory Tests Range/Units 12/27/21 12/27/21 12/27/21 10:48 10:56 10:56 WBC (4.4-10.8) 10^3/uL 13.94 H RBC (3.93-5.22) 10^6/uL 4.47 Hgb (11.2-15.7) g/dL 14.1 Hct (36.0-46.0) % 41.9 MCV (80-95) fL 94 MCH (27.0-33.0) pg 31.5 MCHC (32.0-36.0) % 33.7 RDW (11.7-14.6) % 12.8 Plt Count (130-400) 10^3/uL 303 MPV (8.0-11.0) fL 9.4 Immature Gran % 0.4 Neutrophils % 78.2 Lymphocytes % 14.4 Monocytes % 5.5 Eosinophils % 1.4 Basophils % 0.1 Nucleated RBC % (0.0-0.3) % 0.0 Absolute Neutrophils (1.2-6.7) 10^3/uL 10.90 H Absolute Lymphocytes (1.2-3.4) 10^3/uL 2.01 Absolute Monocytes (0.1-0.8) 10^3/uL 0.77 Absolute Eosinophils (0.0-0.7) 10^3/uL 0.20 Absolute Basophils (0.0-0.2) 10^3/uL 0.01 VBG Lactate (0.6-1.4) mmol/L Sodium (136-145) mmol/L 141 Potassium (3.5-5.1) mmol/L 3.9 Chloride (98-107) mmol/L 105 Carbon Dioxide (21.0-32.0) mmol/L 29.8 Anion Gap (3-11) mmol/L 6.2 BUN (7-18) mg/dL 10 Creatinine (0.55-1.02) mg/dL 0.8 Est GFR (CKD-EPI 2020) (mL/min/1.73m2) 97.26 Glucose (74-106) mg/dL 92 Calcium (8.5-10.1) mg/dL 9.0 Total Bilirubin (0.2-1.0) mg/dL 0.3 AST (15-37) U/L 13 L ALT (14-59) U/L 22 Alkaline Phosphatase (46-116) U/L 79 Total Protein (6.4-8.2) g/dL 7.3 Albumin (3.4-5.0) g/dL 4.1 Lipase (73-393) U/L 153 Urine Color (Yellow) Yellow Urine Clarity (Clear) Clear Urine pH (5-8) 6.0 Ur Specific [place] (1.005-1.025) 1.020 Urine Protein (Negative) mg/dL Negative Urine Ketones (Negative) mg/dL Negative Urine Blood (Negative) Negative Urine Nitrite (Negative) Negative Urine Bilirubin (Negative) Negative Urine Urobilinogen (Up TO 0.2) EU/dL 0.2 Ur Leukocyte Esterase (Negative) Negative Urine Glucose (Negative) mg/dL Negative Range/Units 12/27/21 13:36 WBC (4.4-10.8) 10^3/uL RBC (3.93-5.22) 10^6/uL Hgb (11.2-15.7) g/dL Hct (36.0-46.0) % MCV (80-95) fL MCH (27.0-33.0) pg MCHC (32.0-36.0) % RDW (11.7-14.6) % Plt Count (130-400) 10^3/uL MPV (8.0-11.0) fL Immature Gran % Neutrophils % Lymphocytes % Monocytes % Eosinophils % Basophils % Nucleated RBC % (0.0-0.3) % Absolute Neutrophils (1.2-6.7) 10^3/uL Absolute Lymphocytes (1.2-3.4) 10^3/uL Absolute Monocytes (0.1-0.8) 10^3/uL Absolute Eosinophils (0.0-0.7) 10^3/uL Absolute Basophils (0.0-0.2) 10^3/uL VBG Lactate (0.6-1.4) mmol/L 0.6 Sodium (136-145) mmol/L Potassium (3.5-5.1) mmol/L Chloride (98-107) mmol/L Carbon Dioxide (21.0-32.0) mmol/L Anion Gap (3-11) mmol/L BUN (7-18) mg/dL Creatinine (0.55-1.02) mg/dL Est GFR (CKD-EPI 2020) (mL/min/1.73m2) Glucose (74-106) mg/dL Calcium (8.5-10.1) mg/dL Total Bilirubin (0.2-1.0) mg/dL AST (15-37) U/L ALT (14-59) U/L Alkaline Phosphatase (46-116) U/L Total Protein (6.4-8.2) g/dL Albumin (3.4-5.0) g/dL Lipase (73-393) U/L Urine Color (Yellow) Urine Clarity (Clear) Urine pH (5-8) Ur Specific [place] (1.005-1.025) Urine Protein (Negative) mg/dL Urine Ketones (Negative) mg/dL Urine Blood (Negative) Urine Nitrite (Negative) Urine Bilirubin (Negative) Urine Urobilinogen (Up TO 0.2) EU/dL Ur Leukocyte Esterase (Negative) Urine Glucose (Negative) mg/dL HPI General Mode of arrival: ambulatory . Date/Time Provider Initiated Documentation: 12/27/21 10:30 . Limitations to Documentation: no limitations . Information obtained by: patient and family . History of Present Illness 36 year old F presents to the emergency department with the chief complaint of R sided abd pain, described as moderate, with intensity rated at 8. Quality is described as aching, and is localized to the abdomen and right. Patient reports radiation to back. Patient started experiencing this day(s) (1) and it has been constant. No relieving factors improve symptom(s), No exacerbating factors reported . Patient notes nausea/vomiting (just nausea). Patient did receive the following treatments prior to arrival, none Related Data Home Medications Medication Instructions Recorded Confirmed lamotrigine 100 mg tablet 100 mg PO BID 08/27/19 10/22/21 folic acid 1 mg tablet 3 mg PO DAILY 11/04/19 10/22/21 multivitamin (Daily Multi-Vitamin 1 tab PO DAILY 08/18/21 10/22/21 tablet) levonorgestrel 17.5 mcg/24 hrs 1 device intrauterine ONCE #1 ea 09/25/21 10/22/21 (5yrs) 19.5mg intrauterine device (Kyleena) Previous Rx's Medication Instructions Recorded levonorgestrel 17.5 mcg/24 hrs 1 device intrauterine ONCE #1 ea 09/25/21 (5yrs) 19.5mg intrauterine device (Kyleena) Allergies Allergy/AdvReac Type Severity Reaction Status Date / Time Antihistamines - Alkylamine Allergy Severe Seizure Verified 10/14/21 13:29 enoxaparin [From Lovenox] Allergy Skin Rash Verified 10/14/21 13:29 General Stated Complaint: Abd Prob ELZA: 3 Review of Systems Constitutional Constitutional: Denies fever(s) and Denies weakness Cardiovascular Cardiovascular: Denies chest pain and Denies dyspnea Respiratory Respiratory: Denies cough and Denies dyspnea Gastrointestinal Gastrointestinal: Reports abdominal pain, Denies constipation, Denies diarrhea, Reports nausea and Denies vomiting Genitourinary Genitourinary: Denies abnormal vaginal bleeding, Denies dysuria and Denies vaginal discharge Musculoskeletal Musculoskeletal: Reports back pain Integumentary/Breasts Skin/Breast: Denies rash Neurologic Neurologic: Denies weakness PFSH All Active Problems (Updated 12/27/21 @ 15:31 by TOPHER Daniel) Abdominal pain (Acute) IUD (intrauterine device) in place (Acute) IUD (intrauterine device) in place (Acute) Other social stressor (Acute) Dysmenorrhea (Chronic) since of her daughter 06/2020. Not a candidate for OCPs. Counseled re; IUD for non-contraceptive benefits. Conductive hearing loss in right ear (Acute) Dysfunction of right eustachian tube (Acute) Back pain (Acute) Hip pain (Acute) Foot drop, left (Acute) Subcutaneous mass of right upper extremity (Acute) BMI 37.0-37.9, adult (Acute) Migraine (Chronic) naproxen PRN Family history of malignant neoplasm of breast (Acute) Unclear if breast cancer was primary. Mother of colon cancer age 58. Family history of malignant neoplasm of colon (Chronic) Mother at 58 years of age. Patient needs early screening colonoscopy. Smoker (Acute) Seizure disorder (Acute 06/28/15) Dental caries (Acute 06/28/15) Arthritis of ankle, left (Acute 10/04/16) Medical History Chronic maxillary sinusitis (06/28/15) History of cellulitis (06/28/15) History of chronic sinusitis History of female sterilization 2020. At time of repeat c/s. History of shingles History of smoking Posterior tibial tendon dysfunction, left (10/04/16) Tinnitus, bilateral Surgical History History of ankle surgery History of delivery x2 with tubal sterilization 2020. History of female sterilization 2020 at time of repeat delivery History of sinus surgery Family History Mother , at 59 Ovarian cancer Breast cancer Unsure Colon cancer at age 59 Maternal Cousin Colon cancer Father No problems noted. Maternal Grandmother Breast cancer Social History Smoking/Tobacco Use Status: Former Tobacco Use Quit status: has quit before Smoking risk assessment performed?: Yes Alcohol Intake: never Drug use: Never Substance use type: does not use Seatbelt use: always Do you feel safe at home: Yes Do you feel safe in your relationship?: Yes Female Reproductive History Menstrual control method: permanent sterilization (At time of delivery 2020.) History History 2 Para 2 Hx # Term Pregnancies 2 Multiple births 0 Hx # Pregnancies 0 Ectopic pregnancies 0 AB induced 0 Hx Number of Living Children 1 AB spontaneous 1 Past Pregnancies Del. Date GA/Weeks # Preg Succ Route Wgt Sex Labor Lgth Anesth esia Location [facility] 10/16/12 38 No 3770.487 g Female 24 hours regional [facility] 06/07/20 39 No Yes 3801 g Female Pt el ected to deliver at [facility] Delivery Date: 10/16/12 Last Updated by: Nirmala Mishra CNM Pitocin augmentation at [facility], prodromal labor and evaluated at [facility] and patient chose to go to [facility] for care. Delivery Date: 06/07/20 Last Updated by: Luz Martínez MD Elective repeat LTCS with tubal sterilization. Bety. Exam Const General: cooperative, healthy appearing and other (Appears uncomfortable) Orientation: alert and awake [facility] Head: normal to inspection, normocephalic and atraumatic Face and sinus: normal facial exam Mouth: moist mucous membranes Eyes General: appearance normal, both eyes and all related structures Conjunctivae: conjunctivae normal Neck Neck: normal visual inspection, full ROM, no meningeal signs, trachea midline a nd supple Resp Effort & Inspection: normal respiratory effort and able to speak in complete sentences Auscultation: clear to auscultation bilaterally Cardio Rate: regular rate Rhythm: regular rhythm GI Inspection: normal to inspection and obesity Palpation: soft, not firm, no guarding, no pulsatile masses and tender in the RLQ and in the RUQ; not at McBurney's point and Sanchez's sign negative Auscultation: normal bowel sounds Back/Spine/Pelvis Back: no CVA tenderness and No back tenderness Skin General skin exam: no rashes or lesions noted Neuro General: patient alert, patient awake, moves all extremities and no focal motor deficits Cognition: normal cognition Speech: speech normal Gait: normal gait Sensory Exam: no sensory deficits noted Psych Appearance: grossly normal Mental Status: mental status grossly normal Course Vital Signs Vital signs: Vital Signs Temperature 36.6 C 12/27/21 10:34 Pulse 89 12/27/21 10:34 Respiratory Rate 18 12/27/21 10:34 Blood Pressure 122/93 H 12/27/21 10:34 Pulse Oximetry 97 12/27/21 10:34 Temperature 36.6 C 12/27/21 10:34 Pulse 89 12/27/21 10:34 Respiratory Rate 18 12/27/21 10:34 Respiratory Effort 12/27/21 10:59 Blood Pressure 122/93 H 12/27/21 10:34 Blood Pressure Position Sitting 12/27/21 10:34 Pulse Oximetry 97 12/27/21 10:34 Oxygen Delivery Method Room Air 12/27/21 10:34 Oxygen Flow Rate 0 12/27/21 10:34 Pain Level 8 12/27/21 10:34 Lab/Test Results Lab/Test Results: Laboratory Tests Range/Units 12/27/21 10:48 Urine Color (Yellow) Yellow Urine Clarity (Clear) Clear Urine pH (5-8) 6.0 Ur Specific [place] (1.005-1.025) 1.020 Urine Protein (Negative) mg/dL Negative Urine Ketones (Negative) mg/dL Negative Urine Blood (Negative) Negative Urine Nitrite (Negative) Negative Urine Bilirubin (Negative) Negative Urine Urobilinogen (Up TO 0.2) EU/dL 0.2 Ur Leukocyte Esterase (Negative) Negative Urine Glucose (Negative) mg/dL Negative POC- Test(urine) Negative
--- NOTE | 2021-12-27 11:15 | DI.CT_ITS ---
Exam(s) CT ABDOMEN PELVIS W EXAM: CT ABDOMEN PELVIS W CLINICAL HISTORY: R sided pain, leukocytosis. TECHNIQUE: Imaging Protocol: Axial computed tomography images with coronal and sagittal reformatted images were created and reviewed CONTRAST MATERIAL: Intravenous: Omnipaque 100cc Oral: None COMPARISON: CT CT ABDOMEN PELVIS W from 04/06/2021 FINDINGS: VISUALIZED LUNG BASES: No nodules nor pleural effusions evident. ABDOMEN: There is no ascites. LIVER: There are no focal hepatic lesions evident . GALLBLADDER/BILIARY: No obvious gallbladder pathology. CBD is not dilated. PANCREAS: No evidence of pancreatic mass nor dilatation of the pancreatic duct. SPLEEN: Spleen is not enlarged. No obvious intrasplenic lesions. Splenic and portal veins are paten t. ADRENALS: There are no significant adrenal masses. KIDNEYS:No cysts evident. No solid renal masses. No calculi nor hydronephrosis.. ABDOMINAL AORTA: Abdominal aorta is not enlarged. LYMPH NODES:There is no retroperitoneal nor paraaortic adenopathy. ABDOMINAL WALL: No evidence of significant anterior abdominal wall nor inguinal hernia. GI: There is no evidence of bowel obstruction, free air, nor abscess. PELVIS: GI: No evidence of appendicitis.No evidence of sigmoid diverticulitis. LYMPH NODES: There is no intrapelvic nor inguinal adenopathy. REPRODUCTIVE: There is an IUD now noted in the uterine cavity, not previously present. This appears to be in satisfactory position within the anteverted uterus. URINARY BLADDER: No calculi nor obvious masses evident OSSEOUS: No significant osseous lesions. No fractures. L3 limbus vertebra again noted. IMPRESSION: 1. No significant acute findings on this CT scan of the abdomen pelvis. 2. When compared to prior CT scan of April 2021 there has been interval placement of an IUD which appears to be in satisfactory position in the uterus. There are no abnormal adnexal findings.. No f ree fluid. 3. No evidence of appendicitis nor diverticulitis. RADIATION DOSE DELIVERED: 1,101.47mGy.cm Total DLP DATA REPOSITORY: All CT scans at this facility are submitted to the National Radiology Data Registry (NRDR) Dose Index Registry (DIR) with the [employer] [place] [employer] (ACR). RADIATION OPTIMIZATION: All CT scans at this facility use at least one of these dose optimization te chniques: automated exposure control; mA and/or kV adjustment per patient size (includes targeted exa ms where dose is matched to clinical indication); or iterative reconstruction.
[2021-12-27 11:24] LABS: ALT 22 U/L (14-59); AST 13 U/L (15-37); Albumin 4.1 g/dL (3.4-5.0); Alkaline Phosphatase 79 U/L (46-116); Anion Gap 6.2 mmol/L (3-11); BUN 10 mg/dL (7-18); Bilirubin, Total 0.3 mg/dL (0.2-1.0); CO2 29.8 mmol/L (21.0-32.0); CREATININE 0.8 mg/dL (0.55-1.02); Chloride 105 mmol/L (98-107); Estimated GFR 97.26 (mL/min/1.73m2); Glucose 92 mg/dL (74-106); Lipase 153 U/L (73-393); Potassium 3.9 mmol/L (3.5-5.1); Sodium 141 mmol/L (136-145); Total Protein 7.3 g/dL (6.4-8.2)
[2021-12-27] MEDS: Normal Saline 1,000 ML 1000 ML IV (12:33)
[2021-12-27] MEDS: HYDROmorphone 2 MG/ML SYR (12:34)
[2021-12-27] MEDS: MORPHine 4 MG/ML SYR IVP (12:34)
[2021-12-27] MEDS: Ondansetron 4 MG/2 ML VIAL IVP (12:34)
[2021-12-27] MEDS: Omnipaque 350 MG/ML 500 ML BTL-Imaging package 100 ML IJ (12:56)
--- NOTE | 2021-12-27 13:15 | DI.US_ITS ---
Exam(s) US ABDOMEN PELVIS EXAM: US ABDOMEN PELVIS CLINICAL HISTORY: R sided pain, 14 wbc TECHNIQUE: Ultrasound of complete upper abdomen performed using standard protocol. COMPARISON: US US PELVIS TRANSVAGINAL from 03/23/[address] ABDOMEN PELVIS W from 12/27/2021 FINDINGS: There is no ascites evident. LIVER: There are no hepatic lesions evident nor obvious dilatation of intrahepatic ducts. GALLBLADDER/BILIARY: There are no gallstones. No gallbladder wall edema nor pericholecystic fluid. The common hepatic duct isnot dilated, measuring 3mm at the level of roderick hepatis. PANCREAS: There is no evidence of pancreatic mass nor dilatation of the pancreatic duct. SPLEEN: The spleen is not enlarged and there are no intrasplenic lesions evident. KIDNEYS:Kidneys exhibit normal size with no evidence of solid mass, calculus, nor hydronephrosis. No cortical cysts evident. ABDOMINAL AORTA: There is no evidence of abdominal aortic aneurysm. IVC: Normal diameter where visualized. PELVIS: Uterus: There is an IUD in satisfactory position in the endometrial canal. No obvious fibroids evide nt. Ovaries: Small cysts in both ovaries consistent with follicular cysts. The 1 on the right measures 1 .6 x 1.7 cm. One on the left measures 1.5 x 1.3 cm. No ominous adnexal masses. No ovarian torsion evident. No free fluid. No extraovarian adnexal masses evident. IMPRESSION: 1. No evidence of cholelithiasis nor dilatation of the biliary tree. 2. No other significant ultrasound findings in the upper abdomen. 3. There is no ascites. 4. There are follicular cysts in both ovaries with some size measurements as above. 5. IUD is noted in satisfactory position in the endometrial canal of the uterus. DATA REPOSITORY:
[2021-12-27 13:41] LABS: Lactate 0.6 mmol/L (0.6-1.4)
--- NOTE | 2021-12-27 15:45 | DI.RAD_ITS ---
Exam(s) XR PORTABLE CHEST AP EXAM: XR PORTABLE CHEST AP CLINICAL HISTORY: ruq and flank pain. TECHNIQUE: 2D digital imaging was performed. COMPARISON: CR CHEST 2 VIEWS PA,LAT from 12/20/2015 FINDINGS: Single AP portable view. Heart size is upper normal. The mediastinum is not widened. Lungs are clear. No infiltrates nor obvious pleural effusions. IMPRESSION: No acute pulmonary findings on this single AP portable view of the chest. DATA REPOSITORY: RADIATION DOSE DELIVERED:
[2021-12-27 15:48] LABS: Abs Immature Grans 0.04 10^3/uL (0.0-0.06); Absolute Basophil Count 0.01 10^3/uL (0.0-0.2); Absolute Eosinophil Count 0.12 10^3/uL (0.0-0.7); Absolute Lymphocyte Count 1.07 10^3/uL (1.2-3.4); Absolute Monocyte Count 0.53 10^3/uL (0.1-0.8); Basophils % 0.1; HCT 32.3 % (36.0-46.0); Immature Grans % 0.3; Lymphocytes % 9.1; MCH 32.4 pg (27.0-33.0); MCHC 34.4 % (32.0-36.0); MCV 94 fL (80-95); MPV 9.9 fL (8.0-11.0); Monocytes % 4.5; Platelet Count 233 10^3/uL (130-400); RBC 3.43 10^6/uL (3.93-5.22); RDW 13.1 % (11.7-14.6); RDW-SD 45.1 fL; WBC 11.77 10^3/uL (4.4-10.8)
[2021-12-27 15:50] LABS: HGB 11.1 g/dL (11.2-15.7)
[2021-12-27] MEDS: Ketorolac 30 MG/ML VIAL IVP (15:57)
--- NOTE | 2021-12-27 16:54 | NUR.NOTE ---
Nursing Note: Referral faxed to PCP for abdominal pain LEEANNA
== END 2021-12-27 17:02 | disposition home or self-care (01) ==
PROVIDERS: Physician Assistant; Surgery; Emergency Provider Physician Assistant; PCP Family Medicine
DX: R10.9 Unspecified abdominal pain (principal); R11.0 Nausea; G40.909 Epilepsy, unspecified, not intractable, without status epilepticus; Z87.891 Personal history of nicotine dependence; Z20.822 Contact with and (suspected) exposure to COVID-19
CPT/HCPCS: 80053; 81025; 83690; 96361; 96372; 96374; 96375; 99285; 71045; 74177; 76700; 76856; 81003; 83605; 85025; 99284; J1170; J1885; J2270; J2405

== ENCOUNTER 2021-12-29 14:47 | Outpatient (REF) | payer MEDICARE, MEDICAID, SELFPAY ==
[2021-12-29 14:52] LABS: Abs Immature Grans 0.03 10^3/uL (0.0-0.06); Absolute Basophil Count 0.01 10^3/uL (0.0-0.2); Absolute Eosinophil Count 0.15 10^3/uL (0.0-0.7); Absolute Lymphocyte Count 2.48 10^3/uL (1.2-3.4); Absolute Monocyte Count 0.43 10^3/uL (0.1-0.8); Absolute Neutrophil Count 3.64 10^3/uL (1.2-6.7); Basophils % 0.1; Eosinophils % 2.2; HCT 40.3 % (36.0-46.0); HGB 13.5 g/dL (11.2-15.7); Immature Grans % 0.4; Lymphocytes % 36.8; MCH 31.4 pg (27.0-33.0); MCHC 33.5 % (32.0-36.0); MCV 94 fL (80-95); Monocytes % 6.4; Neutrophils % 54.1; Platelet Count 304 10^3/uL (130-400); RDW 12.8 % (11.7-14.6); RDW-SD 44.3 fL; WBC 6.74 10^3/uL (4.4-10.8)
[2021-12-29 15:14] LABS: Amylase 25 U/L (25-115); Lipase 48 U/L (73-393)
== END 2021-12-29 14:48 | disposition home or self-care (01) ==
LOC: NCHCN 14:47
PROVIDERS: PCP Family Medicine; Visit Provider Nurse Practitioner Family
DX: R10.9 Unspecified abdominal pain (principal)
CPT/HCPCS: 83690; 82150; 85025

== ENCOUNTER 2022-06-24 18:34 | Emergency (ER) | payer MEDICARE, MEDICAID, SELFPAY ==
[2022-06-24 18:47] VITALS: BP 135/81; PULSE 106; RESP 20; TEMP 36.6; O2SAT 98
--- NOTE | 2022-06-24 19:00 | DI.RAD_ITS ---
Exam(s) XR TIB/FIB LT XR KNEE LT 3V AP,LAT,MARY EXAM: XR TIB/FIB LT CLINICAL HISTORY: trauma. TECHNIQUE: 2D digital imaging was performed. Two views. COMPARISON: CR,XR XR KNEE LT 3V AP,LAT,MARY from 06/24/2022 FINDINGS: BONES: No acute fracture is present. No bony destructive lesion is seen. The knee joint spaces are w ell maintained. No knee joint effusion. Degenerative changes medial tibiotalar joint with narrowing and spurring. Chronic appearing bony densities seen posteriorly. Ankle mortise is not widened. SOFT TISSUE: Normal. IMPRESSION: No acute abnormality. DATA REPOSITORY: RADIATION DOSE DELIVERED:
--- NOTE | 2022-06-24 19:03 | ED.GENADUL_ITS ---
Discharge Plan Disposition Patient Disposition: Home Condition: Good Discharge Details Clinical Impression: Internal derangement of knee, acute Primary Care Provider: Harinder Matthews ED Provider: Alber Burgos Home Meds and New Rx's Prescriptions: New ibuprofen 600 mg tablet 600 mg PO TID Qty: 20 0RF Continued folic acid 1 mg tablet 3 mg PO DAILY Patient Comments: not taking multivitamin [Daily Multi-Vitamin] Tablet 1 tab PO DAILY Kyleena 17.5 mcg/24 hrs (5 yrs) 19.5 mg intrauterine device 1 device intrauterine ONCE Qty: 1 0RF Rx Instructions: as a single dose lamotrigine 100 mg tablet 100 mg PO BID Patient Comments: TAKE ONE TABLET BY MOUTH TWICE A DAY Discharge Instructions Instructions: Knee Immobilizer (ED) Additional Instructions: X-rays of your left knee and tibia did not show evidence of fracture. There is a very large joint effusion which suggest injury to potential ligaments and ca rtilage. We will place you in a knee immobilizer and would like you to be nonweightbearing on crutches until you follow-up with orthopedics. Keep your leg elevated, ice on and off over the next 2 to 3 days and alternate ibuprofen with acetaminophen for pain. Return to the ED for any significant worsening pain, weakness, no numbness, other concerns. Referrals: [facility] [Provider Group] Medical Decision Making Patient presents with left knee/distal leg pain status post direct trauma from a pig running into her. She denies any other injury. She has chronic loss of sensation to the left foot. Otherwise pulses and strength intact. Declining pain medications at this time. X-ray of left knee and left tib-fib ordered. Per my read and preliminary read per radiology x-ray of the knee and tib-fib are negative for fracture. There is a large left knee effusion. Patient is able to extend and raise her heel off stretcher indicating patella tendon and quadricep tendon intact. She remains with normal DP and PT pulses. Will place in a knee immobilizer and make nonweightbearing with crutches and referred to orthopedics for recheck this week. Patient instructed to keep her leg elevated, ice, alternate ibuprofen with acetaminophen. Return precautions provided. HPI General Mode of arrival: wheelchair . Date/Time Provider Initiated Documentation: 06/24/22 18:46 . Limitations to Documentation: no limitations . Information obtained by: patient . HPI Narrative: Patient presents to ED with left knee and lower extremity pain. Patient was struck full force by a pig and knocked down. Denies other injury. She denies head injury, neck injury, chest injury. She has normal sensation to the left foot which is a chronic problem status post a left ankle fracture many years ago. She denies pain anywhere other than left knee left proximal tibia area. Related Data Home Medications Medication Instructions Recorded Confirmed lamotrigine 100 mg tablet 100 mg PO BID 08/27/19 06/24/22 folic acid 1 mg tablet 3 mg PO DAILY 11/04/19 10/22/21 multivitamin (Daily Multi-Vitamin 1 tab PO DAILY 08/18/21 06/24/22 tablet) levonorgestrel 17.5 mcg/24 hrs 1 device intrauterine ONCE #1 ea 09/25/21 06/24/22 (5yrs) 19.5mg intrauterine device (Kyleena) ibuprofen 600 mg tablet 600 mg PO TID #20 tabs 06/24/22 Previous Rx's Medication Instructions Recorded levonorgestrel 17.5 mcg/24 hrs 1 device intrauterine ONCE #1 ea 09/25/21 (5yrs) 19.5mg intrauterine device (Kyleena) ibuprofen 600 mg tablet 600 mg PO TID #20 tabs 06/24/22 Allergies Allergy/AdvReac Type Severity Reaction Status Date / Time Antihistamines - Alkylamine Allergy Severe Seizure Verified 06/24/22 18:46 enoxaparin [From Lovenox] Allergy Skin Rash Verified 06/24/22 18:46 General Stated Complaint: Orthopedic ELZA: 3 Review of Systems Narrative: Per HPI PFSH All Active Problems (Updated 06/24/22 @ 21:09 by Alber Burgos MD) Internal derangement of knee, acute (Acute) History of chronic sinusitis (Acute) History of cellulitis (Acute 06/28/15) History of shingles (Acute) History of smoking (Acute) IUD (intrauterine device) in place (Acute) IUD (intrauterine device) in place (Acute) Other social stressor (Acute) Dysmenorrhea (Chronic) since of her daughter 06/2020. Not a candidate for OCPs. Counseled re; IUD for non-contraceptive benefits. Conductive hearing loss in right ear (Acute) Dysfunction of right eustachian tube (Acute) Back pain (Acute) Hip pain (Acute) Foot drop, left (Acute) Subcutaneous mass of right upper extremity (Acute) BMI 37.0-37.9, adult (Acute) Migraine (Chronic) naproxen PRN Family history of malignant neoplasm of breast (Acute) Unclear if breast cancer was primary. Mother of colon cancer age 58. Family history of malignant neoplasm of colon (Chronic) Mother at 58 years of age. Patient needs early screening colonoscopy. Smoker (Acute) Dental caries (Acute 06/28/15) Arthritis of ankle, left (Acute 10/04/16) Medical History (Updated 06/24/22 @ 21:09 by Alber Burgos MD) Chronic maxillary sinusitis (06/28/15) Posterior tibial tendon dysfunction, left (10/04/16) Seizure disorder (06/28/15) Tinnitus, bilateral Surgical History History of ankle surgery History of delivery x2 with tubal sterilization 2020. History of female sterilization 2020 at time of repeat delivery History of sinus surgery Family History Mother , at 59 Ovarian cancer Breast cancer Unsure Colon cancer at age 59 Maternal Cousin Colon cancer Father No problems noted. Maternal Grandmother Breast cancer Social History Smoking/Tobacco Use Status: Current every day Quit status: has quit before Smoking risk assessment performed?: Yes Alcohol Intake: never Drug use: Never Substance use type: does not use Seatbelt use: always Do you feel safe at home: Yes Do you feel safe in your relationship?: Yes Female Reproductive History Menstrual control method: permanent sterilization (At time of delivery 2020.) History History 2 Para 2 Hx # Term Pregnancies 2 Multiple births 0 Hx # Pregnancies 0 Ectopic pregnancies 0 AB induced 0 Hx Number of Living Children 1 AB spontaneous 1 Past Pregnancies Del. Date GA/Weeks # Preg Succ Route Wgt Sex Labor Lgth [facility]est[facility] 38 No 3770.487 g Female 24 hours regional [facility] [place] 06/07/20 39 No Yes 3801 g Female Pt el ected to deliver at [facility] [place] Delivery Date: 10/16/12 Last Updated by: Nirmala Mishra CNM Pitocin augmentation at [facility] [place], prodromal labor and evaluated at [facility] and patient chose to go to [facility] [place] for care. Delivery Date: 06/07/20 Last Updated by: Luz Martínez MD Elective repeat LTCS with tubal sterilization. Bety. Exam Narrative Exam Narrative: Const: WDWN female in NAD. HEENT: NC/AT. Normal facial exam. Neck: Supple. Trachea midline. Lungs: Normal respiratory effort. Cor: RRR. Good distalal pulses. Neuro: A+O x 3. Normal speech, mentation, gait. Cranial nerves II - XII grossly intact. No gross motor or sensory deficit. Ext: No C/C/E. DP/PT pulses intact left lower extremity. Strength intact distally. No sensation to the foot which is chronic and unchanged. Tenderness with no range of motion left knee, left proximal tibia. Skin: Warm and dry without rash. Course Vital Signs Vital signs: Vital Signs Temperature 97.9 F 06/24/22 18:47 Pulse 106 H 06/24/22 18:47 Respiratory Rate 20 06/24/22 18:47 Blood Pressure 135/81 06/24/22 18:47 Pulse Oximetry 98 06/24/22 18:47 Temperature 97.9 F 06/24/22 18:47 Temperature Source Oral 06/24/22 18:47 Pulse 106 H 06/24/22 18:47 Respiratory Rate 20 06/24/22 18:47 Respiratory Effort Normal, Non-Labored 06/24/22 18:45 Blood Pressure 135/81 06/24/22 18:47 Pulse Oximetry 98 06/24/22 18:47 Oxygen Delivery Method Room Air 06/24/22 18:47 Oxygen Flow Rate 0 06/24/22 18:47 Pain Level 8 06/24/22 18:48
--- NOTE | 2022-06-24 20:50 | DI.VRAD_ITS ---
PROCEDURE INFORMATION: Exam: XR Left Knee Exam date and time: 06/24/2022 8:08 PM Age: 36 years old Clinical indication: Injury or trauma; Fall; Blunt trauma; Knee; Left TECHNIQUE: Imaging protocol: Radiologic exam of the left knee. Views: 3 views. COMPARISON: US LOWER EXTREMITY VASCULAR LT 12/03/2017 9:38 AM FINDINGS: Bones/joints: No fracture. No dislocation. No joint effusion. Soft tissues: Mild soft tissue swelling of the anterior aspect of the knee. No foreign body. IMPRESSION: 1. No fracture or dislocation. No joint effusion. 2. Soft tissue swelling. No foreign body. Dictated and Authenticated by: Tico Vasques MD. Ordering:MINO Campo MD
--- NOTE | 2022-06-24 20:52 | DI.VRAD_ITS ---
PROCEDURE INFORMATION: Exam: XR Left Tibia and Fibula Exam date and time: 06/24/2022 8:09 PM Age: 36 years old Clinical indication: Injury or trauma; Fall; Blunt trauma; Lower leg; Left TECHNIQUE: Imaging protocol: Radiologic exam of the left tibia and fibula. Views: 2 views. COMPARISON: MR ANKLE^ROUTINE 12/08/2016 2:07 PM FINDINGS: Bones/joints: No acute fracture. No dislocation. Soft tissues: Soft tissues of the left lower leg are unremarkable. No foreign body. No soft tissue gas. IMPRESSION: 1. No acute fracture. 2. Knee joint and ankle joint without acute disruption. 3. No soft tissue foreign body. Dictated and Authenticated by: Tico Vasques MD. Ordering:MINO Campo MD
[2022-06-24] MEDS: Ibuprofen 800 MG TAB PO (21:13)
== END 2022-06-24 21:45 | disposition home or self-care (01) ==
PROVIDERS: Emergency Provider Emergency Medicine; PCP Family Medicine
DX: M23.92 Unspecified internal derangement of left knee (principal)
CPT/HCPCS: 73562; 99283; 73590

== ENCOUNTER → 2022-07-05 08:26 | Outpatient (BNVA) | payer MEDICARE, MEDICAID, SELFPAY | PROVIDERS: PCP Family Medicine; Referring Provider Family Medicine; Visit Provider Student in an Organized Health Care Education/Training Program | CPT/HCPCS: 99204 ==

== ENCOUNTER 2022-07-05 11:20 | Outpatient (CLI) | payer MEDICARE, MEDICAID, SELFPAY ==
--- NOTE | 2022-07-05 15:30 | DI.MRI_ITS ---
Exam(s) MR LOWER JOINT LT WO EXAM: MR LOWER JOINT LT WO CLINICAL HISTORY: traumatic injury M23.92 INTERNAL DERANGEMENT LEFT KNEE. TECHNIQUE: Multiplanar multisequence MRI was performed. COMPARISON: CR,XR XR KNEE LT 3V AP,LAT,MARY from 06/24/2022 FINDINGS: BONES: There is mild edema seen in the lateral aspect of the lateral femoral condyle. No evidence of a fracture. JOINTS: Articular cartilage is unremarkable. There is a small effusion. TENDONS: Extensor mechanism: Unremarkable. Medial retinaculum: Unremarkable. Lateral retinaculum: Unremarkable. Popliteus: Unremarkable. MUSCLES: Unremarkable. MENISCI: The medial meniscus is unremarkable. The lateral meniscus is unremarkable. SOFT TISSUES: Unremarkable. LIGAMENTS: Anterior Cruciate: Unremarkable. Posterior Cruciate: Unremarkable. Medial Collateral:There is a tear of the proximal aspect of the medial collateral ligament. There is edema seen in the soft tissues around the medial collateral ligament. Lateral Collateral: Unremarkable. OTHER: IMPRESSION: 1. Tear of the proximal aspect of the medial collateral ligament with associated edema. 2. No evidence of a meniscal tear. 3. Small contusion involving the lateral aspect of the lateral femoral condyle. Small joint effusion . DATA REPOSITORY:
== END 2022-07-05 11:40 ==
LOC: DI 11:21
PROVIDERS: PCP Family Medicine; Visit Provider Student in an Organized Health Care Education/Training Program
DX: M23.92 Unspecified internal derangement of left knee (principal)
CPT/HCPCS: 73721; 99214

== ENCOUNTER → 2022-07-26 10:48 | Outpatient (BNVA) | payer MEDICARE, OTHER, MEDICAID, SELFPAY | PROVIDERS: PCP Family Medicine; Referring Provider Family Medicine; Visit Provider Student in an Organized Health Care Education/Training Program | DX: S83.412D Sprain of medial collateral ligament of left knee, subsequent encounter (principal); X58.XXXD Exposure to other specified factors, subsequent encounter | CPT/HCPCS: 99213 ==

== ENCOUNTER → 2022-08-23 11:04 | Outpatient (BNVA) | payer MEDICARE, MEDICAID, SELFPAY | PROVIDERS: PCP Family Medicine; Referring Provider Family Medicine; Visit Provider Student in an Organized Health Care Education/Training Program | DX: S83.412D Sprain of medial collateral ligament of left knee, subsequent encounter (principal); X58.XXXD Exposure to other specified factors, subsequent encounter | CPT/HCPCS: 99213 ==

== ENCOUNTER 2023-04-15 18:04 | Emergency (ER) | payer MEDICARE, MEDICAID, SELFPAY ==
--- NOTE | 2023-04-15 18:06 | ED.GENADUL_ITS ---
HPI General Date/Time Provider Initiated Documentation: 04/15/23 18:06 . HPI Narrative: MDM This is an uncomfortable appearing normothermic but mildly tachycardic 37-year-old female with concern for early sinusitis along with left facial cellulitis for which patient will receive clindamycin given significant past history. No pain out of proportion to suggest necrotizing soft tissue infection. No headache to suggest subarachnoid hemorrhage. No nuchal rigidity to suggest meningitis. Patient does not appear dehydrated so I do not feel that she requires empiric IV fluids or antibiotics. She is not immunocompromise to suggest fungal infection. She has no percussive tenderness to suggest odo ntogenic origin. Given that she is nontoxic will defer CT scan as I am not suspicious for complicated infection nor deep space infection. No recent chiropractic manipulation to suggest cervical arterial dissection. Good range of motion in the neck so I am not concerned for retropharyngeal abscess. Handling secretions so doubt epiglottitis. Nontoxic-appearing so doubt bacterial tracheitis. Uvula midline so doubt peritonsillar abscess. 9 PM Patient was able to swallow pills. Her tachycardia resolved without intervention. Will proceed with empiric trial of expectant outpatient management. Patient and her and I discussed return to the ED for worsening pain inability to swallow or any shortness of breath. Chronic conditions affecting the care of the patient: Prior sinusitis episodes History obtained from an outside historian: Patient's [place] [facility] [place] Medications: Clindamycin dexamethasone acetaminophen. Social determinants of health affecting disposition: N/A Management discussed with: N/A Treatment/interventions considered: IV fluids and antibiotics but deferred given tolerating p.o. Response to therapies provided: N/A HPI This is a 37-year-old female with history of submandibular abscess and complex sinusitis arriving to the emergency department via private vehicle with her in the setting of left-sided facial pain and swelling. Patient reports that she began having a sinus affection approximately 1 week ago. She says that it has not improved. She was on antibiotics 1 month ago in the setting of URI. She endorses that her symptoms have been going on for approximately 8 days. She denies fevers or any daytime cough. She has had some purulent nasal discharge. She is a daily tobacco user but denies routine ethanol and illicits. She took naproxen 500 mg this morning. She is having no pain in her teeth. She is taken no recent falls. She has had some difficulty swallowing solids but is able to keep down liquids. She reports that her symptoms do not feel as bad as prior episodes which led to ENT procedures and hospitalization. Exam General: Uncomfortable-appearing in no acute distress speaking in complete sentences. Head: Normocephalic, atraumatic. Eye: Extraocular eye movements intact. No conjunctival injection. No scleral icterus. Ear, nose, mouth, throat: Left-sided mild facial swelling. No brawny edema submentally to suggest Shay's angina. Patient is able to open her mouth approximately 3 cm. There is no obvious posterior oropharynx erythema. Uvula midline. Good range of motion in neck. Bilateral TMs clear. No mastoid tenderness bilaterally. Neck: Trachea midline. Cardiovascular: Well-perfused distal extremities. Respiratory: Nonlabored respiration. Gastrointestinal: Nondistended abdomen. Musculoskeletal: No edema. Moving all 4 extremities spontaneously. Skin: Normal for age and race, grossly normal temperature and turgor. No acute rash. Neurologic: Alert and appropriate, no apparent acute deficits. Psychiatric: Mood and manner are appropriate. Grooming and personal hygiene are appropriate. Related Data Home Medications Medication Instructions Recorded Confirmed lamotrigine 100 mg tablet 100 mg PO BID 08/27/19 08/23/22 multivitamin (Daily Multi-Vitamin 1 tab PO DAILY 08/18/21 08/23/22 tablet) levonorgestrel 17.5 mcg/24 hrs 1 device intrauterine ONCE #1 ea 09/25/21 08/23/22 (5yrs) 19.5mg intrauterine device (Kyleena) ibuprofen 600 mg tablet 600 mg PO TID #20 tabs 06/24/22 08/23/22 clindamycin HCl 150 mg capsule 150 mg PO Q8H 10 days #30 caps 04/15/23 (Cleocin HCl) Previous Rx's Medication Instructions Recorded levonorgestrel 17.5 mcg/24 hrs 1 device intrauterine ONCE #1 ea 09/25/21 (5yrs) 19.5mg intrauterine device (Kyleena) ibuprofen 600 mg tablet 600 mg PO TID #20 tabs 06/24/22 clindamycin HCl 150 mg capsule 150 mg PO Q8H 10 days #30 caps 04/15/23 (Cleocin HCl) Allergies Allergy/AdvReac Type Severity Reaction Status Date / Time Antihistamines - Alkylamine Allergy Severe Seizure Verified 08/23/22 11:08 enoxaparin [From Lovenox] Allergy Skin Rash Verified 08/23/22 11:08 General ELZA: 3 Medical Decision Making Quality:SDOH Health Related Social Needs: No Data to Display PFSH All Active Problems (Updated 04/15/23 @ 18:58 by Harinder Murphy MD) Cellulitis of face (Acute) Tear of medial collateral ligament of left knee (Acute 06/24/22) Internal derangement of left knee (Acute ~06/24/22) History of chronic sinusitis (Acute) History of cellulitis (Acute 06/28/15) History of shingles (Acute) History of smoking (Acute) IUD (intrauterine device) in place (Acute) IUD (intrauterine device) in place (Acute) Other social stressor (Acute) Dysmenorrhea (Chronic) since of her daughter 06/2020. Not a candidate for OCPs. Counseled re; IUD for non-contraceptive benefits. Conductive hearing loss in right ear (Acute) Dysfunction of right eustachian tube (Acute) Back pain (Acute) Hip pain (Acute) Foot drop, left (Acute) Subcutaneous mass of right upper extremity (Acute) BMI 37.0-37.9, adult (Acute) Migraine (Chronic) naproxen PRN Family history of malignant neoplasm of breast (Acute) Unclear if breast cancer was primary. Mother of colon cancer age 58. Family history of malignant neoplasm of colon (Chronic) Mother at 58 years of age. Patient needs early screening colonoscopy. Smoker (Acute) Dental caries (Acute 06/28/15) Arthritis of ankle, left (Acute 10/04/16) Medical History (Updated 04/15/23 @ 18:58 by Harinder Murphy MD) Tinnitus, bilateral Seizure disorder (06/28/15) Posterior tibial tendon dysfunction, left (10/04/16) Chronic maxillary sinusitis (06/28/15) Surgical History History of female sterilization 2020 at time of repeat delivery History of delivery x2 with tubal sterilization 2020. History of sinus surgery History of ankle surgery Family History Mother , at 59 Ovarian cancer Breast cancer Unsure Colon cancer at age 59 Maternal Cousin Colon cancer Father No problems noted. Maternal Grandmother Breast cancer Social History Smoking/Tobacco Use Status: Current every day Quit status: has quit before Smoking risk assessment performed?: Yes Alcohol Intake: never Drug use: Never Substance use type: does not use Current gender identity: female Seatbelt use: always Do you feel safe at home: Yes Do you feel safe in your relationship?: Yes Female Reproductive History Menstrual control method: permanent sterilization (At time of delivery 2020.) History History 2 Para 2 Hx # Term Pregnancies 2 Multiple births 0 Hx # Pregnancies 0 Ectopic pregnancies 0 AB induced 0 Hx Number of Living Children 1 AB spontaneous 1 Past Pregnancies Del. Date GA/Weeks # Preg Succ Route Wgt Sex Labor Lgth Anesth esia Location [facility] 10/16/12 38 No 3770.487 g [place] [facility] [place]07[place] 39 No Yes 3801 g Female [place] el [place] [facility] [place] Date: 10/16/12 Last Updated by: Nirmala Mishra CNM [place] [facility] [place], prodromal labor and evaluated at [facility] and patient chose to go [place] [facility] [place]. Delivery Date: 06/07/20 Last Updated by: Luz Martínez MD Elective repeat LTCS with tubal sterilization. Bety. Discharge Plan Disposition Patient Disposition: Home Discharge Details Clinical Impression: Cellulitis of face Primary Care Provider: Harinder Matthews ED Provider: Harinder Murphy Home Meds and New Rx's Prescriptions: New clindamycin HCl [Cleocin HCl] 150 mg capsule 150 mg PO Q8H 10 Days Qty: 30 0RF Continued multivitamin [Daily Multi-Vitamin] Tablet 1 tab PO DAILY Kyleena 17.5 mcg/24 hrs (5 yrs) 19.5 mg intrauterine device 1 device intrauterine ONCE Qty: 1 0RF Rx Instructions: as a single dose lamotrigine 100 mg tablet 100 mg PO BID Patient Comments: TAKE ONE TABLET BY MOUTH TWICE A DAY ibuprofen 600 mg tablet 600 mg PO TID Qty: 20 0RF Discharge Instructions Instructions: Cellulitis (ED) Additional Instructions: You were seen in the emergency department for your skin infection. Please take these antibiotics as directed that have been sent to your pharmacy for 10 days. Please return to the emergency department if you develop any difficulty swallowing cannot swallow your medications or if you have any other concerns. For your pain please take medications as follows: 1. Take acetaminophen (Tylenol), 1,000 mg (two 500 mg tabs) every 6 hours [2. Take ibuprofen (Advil), 400 mg every 6 hours.] Stand Alone Forms: Work Release Discharge Data Discharge Date/Time-TO BE ENTERED AT DEPARTURE: 04/15/23 19:18
[2023-04-15 18:09] VITALS: BP 161/106; PULSE 105; RESP 20; TEMP 36.8; O2SAT 100
[2023-04-15 18:32] VITALS: O2SAT 99
[2023-04-15] MEDS: Clindamycin 150 MG CAP 450 MG PO (18:37)
[2023-04-15] MEDS: Dexamethasone 4 MG TAB 10 MG PO (18:37)
[2023-04-15] MEDS: Acetaminophen 500 MG TAB 1000 MG PO (18:38)
[2023-04-15 18:41] VITALS: PULSE 100; O2SAT 100
[2023-04-15] MEDS: Clindamycin 150 MG CAP, 12 CAPS/BTL 450 MG PO (19:15)
[2023-04-15 19:17] VITALS: BP 148/93; PULSE 88; RESP 16; O2SAT 100
--- OUTSIDE RECORDS SUMMARY | 2023-04-15 19:19 | XMS_ITS | Continuity of Care Document ---
Author Name Unknown Organization [facility] Ambulatory Clinics Address [address] [place] [address] Encounter [facility] FIN NBR [id number] Date(s): 04/11/22 - 04/11/22 [facility] Ambulatory Clinics [address], [place] [address] Encounter Diagnosis Encounter for screening for COVID-19(Discharge Diagnosis) - 04/11/22 Pharyngitis(Discharge Diagnosis) - 04/11/22 Discharge Disposition: Home or Self Care Attending Physician: Spike Zhao. PA Allergies, Adverse Reactions, Alerts Substance Reaction Severity Status antihistamines Seizure Severe Active Functional Status 04/11/22 Other exposure to Infectious Disease Non e Medications amoxicillin 500 mg oral capsule 500 mg = 1 cap, Oral, TID, # 30 cap, 0 Refill(s) Start Date: 04/11/22 Stop Date: 04/21/22 Status: Ordered LaMICtal 100 mg oral tablet 100 mg = 1 tab, Oral, BID, # 60 tab, 0 Refill(s) Start Date: 12/27/21 Status: Ordered Multi Vitamin+ 0 Refill(s) Start Date: 12/27/21 Status: Ordered omeprazole 20 mg oral delayed release capsule 20 mg = 1 cap, Oral, Daily, # 30 cap, 0 Refill(s) Start Date: 12/27/21 Status: Ordered Results Laboratory List Name Date SARS-CoV-2 (Covid-19) AG ([place]) POCT 04/11/22 Most recent to oldest [Reference Range]: 1 SARS-CoV or CoV-2 (COVID-19) Ag ([place]) [Negative] Negative (04/11/22 6:29 PM) Employed in healthcare? Unknown *NA* (04/11/22 6:29 PM) Symptomatic as defined by CDC? Unknown *NA* (04/11/22 6:29 PM) Date of onset (Lab) Unknown *NA* (04/11/22 6:29 PM) Hospitalized due to COVID-19? Unknown *NA* (04/11/22 6:29 PM) In ICU? Unknown *NA* (04/11/22 6:29 PM) Group care resident? Unknown *NA* (04/11/22 6:29 PM) status? Unknown *NA* (04/11/22 6:29 PM) Vital Signs Most recent to oldest [Reference Range]: 1 Temperature Tympanic [36.6-37.9 Deg C] 3 6.6 Deg C (04/11/22 6:30 PM) Peripheral Pulse Rate [60-100 bpm] 84 bp m (04/11/22 6:30 PM) Weight 104.33 kg (04/11/22 6:30 PM) Weight Measured (lbs) 230.008 lb (04/11/22 6:30 PM) Height 160.02 cm (04/11/22 6:30 PM) Height/Length Measured (inches) 63 inch (04/11/22 6:30 PM) BSA Measured 2.15 m2 (04/11/22 6:30 PM) Body Mass Index 40.74 kg/m2 (04/11/22 6:30 PM) Social History Social History Type Response Tobacco Never tobacco user T obacco Use:. Sex Physician Outpatient Note * Spike Zhao. PA: PERFORM Event Display: Office Clinic Note Physician Authored Date: [id number] FLORESITA GOLDSTEIN :1985 Age:36 years Sex:Female Visit Date:04/11/2022 Chief Complaint ? strep, exposure, sore throat History of Present Illness Daughter with sore throat positive for strep. ??Started with sore throat today. ??No other symptoms. ??No runny nose, cough, fever, chills, nausea, vomiting, diarrhea, chest pain, shortness of breath. ??Otherwise been well. ??Has history of strep in the past. Physical Exam Vitals & Measurements T:??36.6?C ??(Tympanic)?? HR:??84??(Peripheral)?? SpO2:??100%?? HT:??160.02??cm?? WT:??104.33??kg?? BMI:??40.74?? BSA:??2.15?? General: Alert and oriented, well nourished, no acute distress. Eye:??Pupils are reactive, conjunctiva clear. HENT: Normocephalic, clear tympanic membranes, throat clear no exudate and uvula is midline Neck: Supple, non-tender, no lymphadenopathy Lungs: Clear to auscultation and percussion, non-labored respiration. Heart: Normal rate, regular rhythm, no murmur, gallop or edema. Abdomen: Soft, non-tender, non-distended, no masses, no CVA tenderness. Musculoskeletal: Normal range of motion and strength, no tenderness or swelling. Skin: Skin is warm, dry, no rashes or lesions in examined areas. Neurologic: Awake, alert and oriented X3, normal cognition and interaction. Psychiatric: Cooperative, appropriate mood and affect. Assessment/Plan 1.??Pharyngitis??J02.9 Rapid strep negative however given positive strep in her household if she continues with sore throat over the next 24 to 48 hours she may start antibiotics at that time for presumed strep. ??Patient agreeable. ??Recheck sooner as needed. Ordered: amoxicillin 500 mg oral capsule, 500 mg = 1 cap, Oral, TID, # 30 cap, 0 Refill(s) Rapid Strep Clinic POC (RE), 04/11/22 19:04:00 EST, Pharyngitis, 04/11/22 19:04:00 EST ?? Encounter for screening for COVID-19??Z11.52 Ordered: SARS-CoV-2 (COVID-19) Ag POC ([place]), 04/11/22 18:29:00 EST, Encounter for screening for COVID-19, 04/11/22 18:29:00 EST ?? Patient Instructions Given how early your symptoms are.?? Fill antibiotics if your sore throat is worse tomorrow.?? Otherwise??get good rest tonight. ??Lots of fluids. Problem List/Past Medical History Ongoing Morbid obesity Historical No qualifying data Medications amoxicillin 500 mg oral capsule, 500 mg= 1 cap, Oral, TID LaMICtal 100 mg oral tablet, 100 mg= 1 tab, Oral, BID Multi Vitamin+ omeprazole 20 mg oral delayed release capsule, 20 mg= 1 cap, Oral, Daily Allergies antihistamines??(Seizure) Social History Electronic Cigarette/Vaping Electronic Cigarette Use: Never. Tobacco Never tobacco user Tobacco Use:. Electronically Signed on 04/11/22 07:05 PM Spike OBANDO Outpatient Summary note * Spike Zhao. PA: PERFORM Event Display: Ambulatory Patient Summary Authored Date: [id number] FLORESITA GOLDSTEIN :1985 Age:36 years Sex:Female Visit Date:04/11/2022 Ambulatory Visit Instructions We would like to thank you for allowing us to assist you with your healthcare needs. The following includes patient education materials and information regarding your injury/illness. After you leave the office, you may get your health information including your test results, physician notes and discharge information by accessing your Patient Portal. If you do not have a patient portal account set up, please contact __. Your Next Steps Instructions From Your Care Team Given how early your symptoms are.?? Fill antibiotics if your sore throat is worse tomorrow.?? Otherwise??get good rest tonight. ??Lots of fluids. Medications What How Much When Why Instructions New amoxicillin (amoxicillin 500 mg oral capsule) 1 Capsules Oral (given by mouth) 3 times a day Pharyngitis Duration: 10 Days Printed Prescription Unchanged lamoTRIgine (LaMICtal 100 mg oral tablet) 1 tab Oral (given by mouth) 2 times a day Unchanged multivitamin (Multi Vitamin+) Unchanged omeprazole (omeprazole 20 mg oral delayed release capsule) 1 Capsules Oral (given by mouth) Every day Musculoskeletal back pain Abdominal pain of unknown etiology Your Summary Your Diagnosis Pharyngitis Encounter for screening for COVID-19 Tests Performed/Pending SARS-CoV-2 (Covid-19) AG ([place]) POCT Your Care Team Attending Physician - Spike OBANDO Allergies antihistamines??(Seizure) Electronically Signed on: 04/11/2022 19:05 ESTSigned by:MICKIE
--- OUTSIDE RECORDS SUMMARY | 2023-04-15 19:19 | XMS_ITS | Continuity of Care Document ---
Author Name Unknown Organization [facility] Address [address] [place] [address] Encounter [facility] FIN NBR [id number] Date(s): 12/27/21 - 12/27/21 [facility] [address] [place], [place] [address] Encounter Diagnosis Musculoskeletal back pain(Discharge Diagnosis) - 12/27/21 Abdominal pain of unknown etiology(Discharge Diagnosis) - 12/27/21 Discharge Disposition: Home f/u Internal Provider Attending Physician: Alfred Rodas MD Admitting Physician: Alfred Rodas MD Referring Physician: Alfred Rodas MD Allergies, Adverse Reactions, Alerts Substance Reaction Severity Status antihistamines Seizure Severe Active Functional Status 12/27/21 Other exposure to Infectious Disease Non e Medications LaMICtal 100 mg oral tablet 100 mg = 1 tab, Oral, BID, # 60 tab, 0 Refill(s) Start Date: 12/27/21 Status: Ordered Multi Vitamin+ 0 Refill(s) Start Date: 12/27/21 Status: Ordered omeprazole 20 mg oral delayed release capsule 20 mg = 1 cap, Oral, Daily, # 30 cap, 0 Refill(s) Start Date: 12/27/21 Status: Ordered Mental Status 12/27/21 Eye Opening Response [place] Spontaneous ly Best Verbal Response [place] Oriented Best Motor Response [place] Obeys comman ds [place] Coma Score 15 Results Laboratory List Name Date CBC w/ Diff 12/27/21 Comprehensive Metabolic Panel 12/27/21 Automated Diff 12/27/21 Urinalysis Microscopic 12/27/21 Urinalysis with Micro if Indicated and C ulture if Indicated 12/27/21 Most recent to oldest [Reference Range]: 1 WBC [4.8-10.8 K/mcL] 10.8 K/mcL (12/27/21 9:26 PM) RBC [4.20-6.10 Million/mcL] 4.13 Million /mcL *LOW* (12/27/21: PM) Neutro Auto [42.2-75.2 %] 84.9 % *HI* (12/27/21 PM) Lymph Auto [20.5-51.1 %] 10.0 % *LOW* (12/27/21 PM) [place] Auto [1.7-9.3 %] 4.3 % (12/27/21 PM) Basophil Auto [0.0-0.2 %] 0.3 % *HI* (12/27/21 PM) BUN [8-26 mg/dL] 11 mg/dL (12/27/21 PM) UA Color [Yellow] Yellow (12/27/21: PM) UA WBC [0-3] 0-3 (12/27/21 PM) Glucose Level [74-106 mg/dL] 108 mg/dL *HI* (12/27/21 PM) Potassium Level [3.5-5.1 mmol/L] 3.7 mmo l/L (12/27/21 PM) Baso Absolute [0.0-0.2 K/mcL] 0.0 K/mcL (12/27/21 PM) MCV [80.0-99.0 fL] 94.2 fL (12/27/21 PM) UA Urobilinogen [0.2] 0.2 (12/27/21: PM) UA Bili [Negative] Negative (12/27/21 PM) UA Ketones [Negative] Negative (12/27/21: PM) AST [15-41 IntlUnit/L] 17 IntlUnit/L (12/27/21: PM) ALT [14-54 IntlUnit/L] 16 IntlUnit/L (12/27/21 PM) MCHC [32.0-36.0 g/dL] 34.2 g/dL (12/27/21 PM) Osmolality [275-295 mOsm/kg] 272 mOsm/kg *LOW* (12/27/21 PM) Sodium Level [134-143 mmol/L] 136 mmol/L (12/27/21 9:26 PM) UA RBC [0-3] 0-3 (12/27/21 8: PM) UA Leuk Est [Negative] Negative (12/27/21 8:21 PM) Lymph Absolute [1.2-3.4 K/mcL] 1.1 K/mcL *LOW* (12/27/21: PM) UA Nitrite [Negative] Negative (12/27/21 8: PM) UA Glucose [Negative] Negative (12/27/21 8: PM) Hct [37.0-52.0 %] 38.9 % (12/27/21 9: PM) UA Bacteria rare *NA* (12/27/21: PM) Calcium Level [8.9-10.3 mg/dL] 8.6 mg/dL *LOW* (12/27/21 9: PM) [place] Absolute [0.1-0.6 K/mcL] 0.5 K/mcL (12/27/21: PM) Albumin Level [3.5-5.0 g/dL] 3.9 g/dL (12/27/21 9:26 PM) Protein Total [6.5-8.1 g/dL] 6.4 g/dL *LOW* (12/27/21: PM) UA Protein [Negative] Negative (12/27/21 8: PM) MCH [27.0-31.0 pg] 32.2 pg *HI* (12/27/21: PM) Neutro Absolute [1.4-6.5 K/mcL] 9.1 K/mc L *HI* (12/27/21 9: PM) Bilirubin Total [0.2-1.2 mg/dL] 0.9 mg/d L (12/27/21 9: PM) Hgb [12.0-18.0 g/dL] 13.3 g/dL (12/27/21 9:26 PM) Alk Phos [38-130 IntlUnit/L] 60 IntlUnit /L (12/27/21 9:26 PM) UA Blood [Negative] Moderate *ABN* (12/27/21 8:21 PM) MPV [7.4-10.4 fL] 9.7 fL (12/27/21 9:26 PM) UA Spec Grav 1.010 *NA* (12/27/21 8:21 PM) Platelets [130-400 K/mcL] 267 K/mcL (12/27/21 9:26 PM) CO2 [22-32 mmol/L] 23 mmol/L (12/27/21 9:26 PM) Eos Absolute [0.0-0.2 K/mcL] 0.0 K/mcL (12/27/21 9:26 PM) UA Squam Epithelial [0-3] 0-3 (12/27/21 8:21 PM) UA pH 5.50 *NA* (12/27/21 8:21 PM) eGFR Non-AA 100 *NA* (12/27/21 9:26 PM) eGFR AA 100 *NA* (12/27/21 9:26 PM) UA Appear [Clear] Clear (12/27/21 8:21 PM) Chloride Level [98-111 mmol/L] 105 mmol/ L (12/27/21 9:26 PM) RDW-CV [11.5-14.5 %] 13.1 % (12/27/21 9:26 PM) A/G Ratio 1.6 *NA* (12/27/21 9:26 PM) BUN/Creat Ratio [8.0-20.0] 14.1 (12/27/21 9:26 PM) Globulin 2.5 *NA* (12/27/21 9:26 PM) Imm Gran Absolute 0.03 *NA* (12/27/21 9:26 PM) Imm Gran Auto [0.0-0.5 %] 0.3 % (12/27/21 9:26 PM) UA Culture Ind?. [No] No (12/27/21 8:21 PM) Urine Srce Clean Catch (12/27/21 8:21 PM) Creatinine Level [0.44-1.00 mg/dL] 0.78 mg/dL (12/27/21 9:26 PM) Anion Gap [3.0-12.0] 8.0 (12/27/21 9:26 PM) Eos, Auto [0.00-3.00 %] 0.20 % (12/27/21 9:26 PM) Vital Signs Most recent to oldest [Reference Range]: 1 2 Temperature Temporal Artery [36-38 Deg C ] 36.6 Deg C (12/27/21 11:40 PM) 37.3 Deg C (12/27/21 7:45 PM) Peripheral Pulse Rate [60-100 bpm] 102 b pm *HI* (12/27/21 7:45 PM) Respiratory Rate [12-24 br/min] 22 br/mi n (12/27/21 7:45 PM) Blood Pressure [90-140/60-90 mmHg] 109/6 9mmHg (12/27/21 7:45 PM) Weight Dosing 104.33 kg (12/27/21 8:17 PM) Weight Estimated 104.33 kg (12/27/21 7:45 PM) Height/Length Dosing 165.000 cm (12/27/21 8:17 PM) Height/Length Estimated 165.000 cm (12/27/21 7:45 PM) Social History Social History Type Response Tobacco Never tobacco user T obacco Use:. Sex Hospital Discharge Instructions Follow Up Care 12/27/2021 19:44:58 With:Follow up with primary care provider Address: When:1 to 2 days Comments:Take your primary care provider tomorrow about your ED visit; follow-up for further evaluation if continued discomforts. ??Return emergency if fevers, persistent vomiting or anything else acutely worsens.?Prilosec daily.?? Take pain medications,??nausea medication as needed for discomforts.
== END 2023-04-15 19:18 | disposition home or self-care (01) ==
PROVIDERS: Emergency Provider Emergency Medicine; PCP Family Medicine
DX: J01.81 Other acute recurrent sinusitis (principal); L03.211 Cellulitis of face; F17.200 Nicotine dependence, unspecified, uncomplicated
CPT/HCPCS: 99283; J8540

== ENCOUNTER 2023-04-17 07:45 | Emergency (ER) | payer MEDICARE, MEDICAID, SELFPAY ==
[2023-04-17 07:47] VITALS: BP 139/79; PULSE 102; RESP 17; TEMP 36.6; O2SAT 99
[2023-04-17 07:51] VITALS: BP 139/79; PULSE 102; RESP 17; TEMP 36.6; O2SAT 99
--- NOTE | 2023-04-17 08:00 | DI.CT_ITS ---
Exam(s) CT NECK W EXAM: CT NECK W CLINICAL HISTORY: L facial cellultis concern for deep spaced infect. TECHNIQUE: Imaging Protocol: Axial computed tomography images with coronal and sagittal reformatted images were created and reviewed. CONTRAST MATERIAL: Intravenous: Omnipaque 350 Contrast volume:100mL COMPARISON: CT CT NECK W from 08/27/2019 FINDINGS: There is artifact from the patient's dental work. Orbits and orbital soft tissues: Within normal limits. Visualized paranasal sinuses: Mild to moderate mucosal thickening is seen in the left maxillary sinu s. No fluid level is seen. There is mild mucosal thickening in the floor of the right maxillary sin us. No fluid levels are seen. The remaining visualized paranasal sinuses are clear. There is opaci fication of several mastoid air cells bilaterally. Nasopharynx: Within normal limits. Oropharynx: Within normal limits. Hypopharynx: Within normal limits. Larynx: Within normal limits. Retropharyngeal space: Within normal limits. Parotids/submandibular: Within normal limits. Thyroid gland: Within normal limits. Lymphadenopathy: Small reactive lymph nodes in the submandibular region. Trachea: Within normal limits. Lung apices: Within normal limits. Bones: Within normal limits for the patient's age. Carotids/Jugular: Within normal limits. Soft tissues: There is mild infiltration of the soft tissues along the left mandible and left cheek . No focal fluid collection is seen. This may represent a cellulitis. No abscess is seen. IMPRESSION: 1. Left maxillary sinusitis with no air-fluid level. 2. Infiltration of the soft tissues adjacent to the left mandible left cheek likely reflecting cellul itis. No focal fluid collection is seen to suggest an abscess. 3. Small reactive lymph nodes in the submandibular region. 4. Findings were discussed with Dr. Doan at 9:33 a.m. on 04/17/2023. RADIATION DOSE DELIVERED: 539.5mGy.cm Total DLP 539.5mGy.cm Total DLP DATA REPOSITORY: All CT scans at this facility are submitted to the National Radiology Data Registry (NRDR) Dose Index Registry (DIR) with the [employer] ([employer]). RADIATION OPTIMIZATION: All CT scans at this facility use at least one of these dose optimization te chniques: automated exposure control; mA and/or kV adjustment per patient size (includes targeted exa ms where dose is matched to clinical indication); or iterative reconstruction.
--- NOTE | 2023-04-17 08:09 | W.ED.GENAD ---
HPI General Date/Time Provider Initiated Documentation: 04/17/23 07:46. HPI Narrative: 37-year-old female recent visit for facial cellulitis left side, started on clindamycin, presents with worsening pain and swelling sensation of trouble breathing and worsening ability to open her mouth Related Data Home Medications Medication Instructions Recorded Confirmed lamotrigine 100 mg tablet 100 mg PO BID 08/27/19 04/17/23 multivitamin (Daily Multi-Vitamin 1 tab PO DAILY 08/18/21 04/17/23 tablet) levonorgestrel 17.5 mcg/24 hrs 1 device intrauterine ONCE #1 ea 09/25/21 04/17/23 (5yrs) 19.5mg intrauterine device (Kyleena) ibuprofen 600 mg tablet 600 mg PO TID #20 tabs 06/24/22 04/17/23 clindamycin HCl 150 mg capsule 150 mg PO Q8H 10 days #30 caps 04/15/23 04/17/23 (Cleocin HCl) amoxicillin 875 mg-potassium 1 tab PO BID 10 days #20 tabs 04/17/23 clavulanate 125 mg tablet Previous Rx's Medication Instructions Recorded levonorgestrel 17.5 mcg/24 hrs 1 device intrauterine ONCE #1 ea 09/25/21 (5yrs) 19.5mg intrauterine device (Kyleena) ibuprofen 600 mg tablet 600 mg PO TID #20 tabs 06/24/22 clindamycin HCl 150 mg capsule 150 mg PO Q8H 10 days #30 caps 04/15/23 (Cleocin HCl) amoxicillin 875 mg-potassium 1 tab PO BID 10 days #20 tabs 04/17/23 clavulanate 125 mg tablet Allergies Allergy/AdvReac Type Severity Reaction Status Date / Time Antihistamines - Alkylamine Allergy Severe Seizure Verified 04/17/23 07:57 enoxaparin [From Lovenox] Allergy Skin Rash Verified 04/17/23 07:57 General Stated Complaint: FacialProb ELZA: 3 Review of Systems Narrative: Review of Systems Constitutional: negative Eyes: negative ENT: Facial pain Cardiovascular: negative Respiratory: Trouble breathing Gastrointestinal: negative : negative Musculoskeletal: negative Skin: negative Neurologic: negative Psych: negative Exam Narrative Exam Narrative: Physical Examination General: alert, awake, cooperative, appears uncomfortable HEENT: normocephalic, atraumatic; PERRL, EOM intact, conjunctiva normal; no nasal discharge; induration to left maxillary soft tissue extending to masseter region and left mandibular region, soft submental space, tolerating secretions, quiet voice without stridor Neck: supple, trachea midline; full ROM Chest: normal to inspection Respiratory: normal respiratory effort, speaking in full sentences, clear to auscultation, no wheezing, rales or rhonchi Cardiac: regular rate, regular rhythm, S1S2 intact, no murmurs rubs or gallops GI: abdomen soft, non-tender, non-distended; no palpable mass or hepatosplenomegaly Skin: See HEENT Neuro: AAOx3, normal speech, moving all extremities Psych: Appropriate mood and affect Course Vital Signs Vital signs: Vital Signs Temperature 36.6 C 04/17/23 07:47 Pulse 102 H 04/17/23 07:47 Respiratory Rate 17 04/17/23 07:47 Blood Pressure 139/79 04/17/23 07:47 Pulse Oximetry 99 04/17/23 07:47 Temperature 36.6 C 04/17/23 07:51 Temperature Source Temporal Artery Scan 04/17/23 07:51 Pulse 102 H 04/17/23 07:51 Respiratory Rate 17 04/17/23 07:51 Respiratory Effort Short of Breath 04/17/23 07:50 Blood Pressure 139/79 04/17/23 07:51 Blood Pressure Position Sitting 04/17/23 07:51 Pulse Oximetry 99 04/17/23 07:51 Oxygen Delivery Method Room Air 04/17/23 07:51 Oxygen Flow Rate 0 04/17/23 07:51 Pain Level 9 04/17/23 07:51 Medical Decision Making 37-year-old female presented with facial cellulitis yesterday started on clindamycin, presents with worsening left facial swelling discomfort worsening ability to open her mouth, migrating induration involving left maxillary region masseter region and now left mandibular region, submental space soft, tolerating secretions, quiet voice without stridor patient appears uncomfortable, noted to be tachycardic on arrival nonhypoxic normotensive, concern for worsening facial cellulitis related to sinusitis versus dental source muscles consider early evolving Shay's angina low suspicion for retropharyngeal abscess or peritonsillar abscess given history and physical. Will obtain IV access will provide dexamethasone and Toradol will start Unasyn IV, stat CT face and neck with contrast, will draw basic labs and blood cultures. Disposition pending reassessment of symptoms post medications and assessment of imaging 9: 40 evidence of left facial cellulitis on head and neck CT with some reactive lymphadenopathy, no evidence of abscess, no evidence of deep space infection of head or neck, likely related to underlying sinusitis. Swelling improved after medications, range of motion of mouth and jaw greatly improved, patient tolerating secretions normal voice hemodynamically stable. Will continue with anti-inflammatory analgesia will transition patient to oral Augmentin given likely source. Home care instructions and strict return precautions to be given. 11: 07 resting actively no acute distress. Hemodynamically stable. Will transition patient to oral Augmentin. Home care instructions return precautions given Quality:SDOH Health Related Social Needs: No Data to Display PFSH All Active Problems (Updated 04/17/23 @ 11:08 by Kenny Doan MD) Facial cellulitis (Acute) Cellulitis of face (Acute) Tear of medial collateral ligament of left knee (Acute 06/24/22) Internal derangement of left knee (Acute ~06/24/22) History of chronic sinusitis (Acute) History of cellulitis (Acute 06/28/15) History of shingles (Acute) History of smoking (Acute) IUD (intrauterine device) in place (Acute) IUD (intrauterine device) in place (Acute) Other social stressor (Acute) Dysmenorrhea (Chronic) since of her daughter 06/2020. Not a candidate for OCPs. Counseled re; IUD for non-contraceptive benefits. Conductive hearing loss in right ear (Acute) Dysfunction of right eustachian tube (Acute) Back pain (Acute) Hip pain (Acute) Foot drop, left (Acute) Subcutaneous mass of right upper extremity (Acute) BMI 37.0-37.9, adult (Acute) Migraine (Chronic) naproxen PRN Family history of malignant neoplasm of breast (Acute) Unclear if breast cancer was primary. Mother of colon cancer age 58. Family history of malignant neoplasm of colon (Chronic) Mother at 58 years of age. Patient needs early screening colonoscopy. Smoker (Acute) Dental caries (Acute 06/28/15) Arthritis of ankle, left (Acute 10/04/16) Medical History (Updated 04/17/23 @ 11:08 by Kenny Doan MD) Tinnitus, bilateral Seizure disorder (06/28/15) Posterior tibial tendon dysfunction, left (10/04/16) Chronic maxillary sinusitis (06/28/15) Surgical History History of female sterilization 2020 at time of repeat delivery History of delivery x2 with tubal sterilization 2020. History of sinus surgery History of ankle surgery Family History Mother , at 59 Ovarian cancer Breast cancer Unsure Colon cancer at age 59 Maternal Cousin Colon cancer Father No problems noted. Maternal Grandmother Breast cancer Social History Smoking/Tobacco Use Status: Current every day Quit status: has quit before Smoking risk assessment performed?: Yes Alcohol Intake: never Drug use: Never Substance use type: does not use Housing: house Current gender identity: female Seatbelt use: always Do you feel safe at home: Yes Do you feel safe in your relationship?: Yes Female Reproductive History Menstrual control method: permanent sterilization (At time of delivery 2020.) History History 2 Para 2 Hx # Term Pregnancies 2 Multiple births 0 Hx # Pregnancies 0 Ectopic pregnancies 0 AB induced 0 Hx Number of Living Children 1 AB spontaneous 1 Past Pregnancies Del. Date GA/Weeks # Preg Succ Route Wgt Sex Labor Lgth Anesthesia Location [facility] 10/16/12 38 No 3770.487 g Female 24 hours regional [facility] 06/07/20 39 No Yes 3801 g Female Pt elected to deliver at [facility] Delivery Date: 10/16/12 Last Updated by: Nirmala Mishra CNM Pitocin augmentation at [facility], prodromal labor and evaluated at [facility] and patient chose to go to [facility] for care. Delivery Date: 06/07/20 Last Updated by: Luz Martínez MD Elective repeat LTCS with tubal sterilization. Bety. Discharge Plan Disposition Patient Disposition: Home Condition: Improving Discharge Details Clinical Impression: Facial cellulitis Primary Care Provider: Harinder Matthews ED Provider: Kenny Doan Home Meds and New Rx's Prescriptions: New amoxicillin-pot clavulanate 875-125 mg tablet 1 tab PO BID 10 Days Qty: 20 0RF No Action multivitamin [Daily Multi-Vitamin] Tablet 1 tab PO DAILY Kyleena 17.5 mcg/24 hrs (5 yrs) 19.5 mg intrauterine device 1 device intrauterine ONCE Qty: 1 0RF Rx Instructions: as a single dose lamotrigine 100 mg tablet 100 mg PO BID Patient Comments: TAKE ONE TABLET BY MOUTH TWICE A DAY ibuprofen 600 mg tablet 600 mg PO TID Qty: 20 0RF clindamycin HCl [Cleocin HCl] 150 mg capsule 150 mg PO Q8H 10 Days Qty: 30 0RF Discharge Instructions Instructions: Cellulitis (ED), Sinusitis (ED) Additional Instructions: Please discontinue clindamycin antibiotic. Begin Augmentin prescription which has been sent to [place] [facility] in [place]. Please return to the emerged part for any worsening symptoms such as spreading swelling redness and pain trouble speaking trouble swallowing trouble breathing or other abnormal symptoms.
[2023-04-17] MEDS: Ketorolac 15 MG/ML VIAL IVP (08:26)
[2023-04-17] MEDS: Dexamethasone 10 MG/ML VIAL IVP (08:26)
[2023-04-17 08:29] LABS: Abs Immature Grans 0.07 10^3/uL (0.0-0.06); Absolute Basophil Count 0.03 10^3/uL (0.0-0.2); Absolute Eosinophil Count 0.18 10^3/uL (0.0-0.7); Absolute Lymphocyte Count 3.52 10^3/uL (1.2-3.4); Absolute Monocyte Count 1.17 10^3/uL (0.1-0.8); Absolute Neutrophil Count 8.96 10^3/uL (1.2-6.7); Basophils % 0.2; Eosinophils % 1.3; Immature Grans % 0.5; Lymphocytes % 25.3; MCH 31.9 pg (27.0-33.0); MCHC 34.9 % (32.0-36.0); MCV 92 fL (80-95); MPV 9.6 fL (8.0-11.0); Monocytes % 8.4; Neutrophils % 64.3; Platelet Count 334 10^3/uL (130-400); RDW 12.4 % (11.7-14.6); RDW-SD 41.7 fL; WBC 13.93 10^3/uL (4.4-10.8)
[2023-04-17 08:48] LABS: ALT 24 U/L (14-59); AST 11 U/L (15-37); Albumin 4.2 g/dL (3.4-5.0); Alkaline Phosphatase 96 U/L (46-116); Anion Gap 11.5 mmol/L (3-11); BUN 9 mg/dL (7-18); Bilirubin, Total 0.4 mg/dL (0.2-1.0); CO2 26.5 mmol/L (21.0-32.0); CREATININE 0.9 mg/dL (0.55-1.02); Calcium 9.3 mg/dL (8.5-10.1); Chloride 104 mmol/L (98-107); Estimated GFR 83.92 (mL/min/1.73m2); Glucose 108 mg/dL (74-106); Sodium 142 mmol/L (136-145)
[2023-04-17] MEDS: Normal Saline - Diluent 50 ML VIAL IJ (08:49)
[2023-04-17] MEDS: Normal Saline 1,000 ML 1000 ML IV (09:19)
[2023-04-17] MEDS: AMPICILLIN/SULBACTAM 3 GM in Normal Saline 100 ML IVPB (09:19)
[2023-04-17] MEDS: ACETAMINOPHEN 1,000 MG/100 ML BTL 400 MG IVPB (09:49)
[2023-04-17 11:19] VITALS: BP 129/85; PULSE 70; RESP 16; O2SAT 100
[2023-04-17 11:25] VITALS: TEMP 36.4
== END 2023-04-17 11:27 | disposition home or self-care (01) ==
PROVIDERS: Emergency Provider Emergency Medicine; PCP Family Medicine
DX: L03.211 Cellulitis of face (principal); R22.0 Localized swelling, mass and lump, head
CPT/HCPCS: 36415; 70491; 80053; 87040; 96365; 96375; 99285; 85025; 99283; J0131; J0295; J1100; J1885

== ENCOUNTER 2023-06-11 13:18 | Outpatient (REF) | payer MEDICARE, MEDICAID, SELFPAY ==
[2023-06-11 19:39] LABS: Hemoglobin A1C 5.4 % (<5.7)
[2023-06-11 20:13] LABS: ALT 32 U/L (14-59); AST 15 U/L (15-37); Albumin 4.1 g/dL (3.4-5.0); Alkaline Phosphatase 102 U/L (46-116); Anion Gap 10.2 mmol/L (3-11); BUN 9 mg/dL (7-18); Bilirubin, Total 0.2 mg/dL (0.2-1.0); CO2 27.8 mmol/L (21.0-32.0); CREATININE 0.8 mg/dL (0.55-1.02); Calcium 9.4 mg/dL (8.5-10.1); Calculated LDL 102 mg/dL (<100); Chloride 105 mmol/L (98-107); Cholesterol 180 mg/dL (<200); Estimated GFR 96.66 (mL/min/1.73m2); Glucose 94 mg/dL (74-106); HDL Cholesterol 61 mg/dL (40-60); Potassium 4.8 mmol/L (3.5-5.1); Sodium 143 mmol/L (136-145); TSH (W/Ref FT4) 1.76 uIU/mL (0.36-3.74); Total Protein 7.3 g/dL (6.4-8.2); Triglyceride 86 mg/dL (<150)
== END 2023-06-11 13:19 | disposition home or self-care (01) ==
LOC: NCHCN 13:18
PROVIDERS: PCP Family Medicine; Visit Provider Nurse Practitioner Family
DX: Z68.41 Body mass index [BMI] 40.0-44.9, adult (principal); R63.5 Abnormal weight gain
CPT/HCPCS: 80053; 80061; 83036; 84443

== ENCOUNTER 2023-07-04 07:10 | Emergency (ER) | payer MEDICARE, MEDICAID, SELFPAY ==
[2023-07-04 07:13] VITALS: BP 130/94; PULSE 108; RESP 18; TEMP 37.1; O2SAT 99
--- NOTE | 2023-07-04 07:15 | DI.CT_ITS ---
Exam(s) CT ABDOMEN PELVIS W EXAM: CT ABDOMEN PELVIS W CLINICAL HISTORY: right sided abdominal pain. TECHNIQUE: Imaging Protocol: Axial computed tomography images with coronal and sagittal reformatted images were created and reviewed CONTRAST MATERIAL: Intravenous: Omnipaque-350 100cc Oral: None COMPARISON: CT CT ABDOMEN PELVIS W from 12/27/2021 FINDINGS: VISUALIZED LUNG BASES: No nodules nor pleural effusions evident. ABDOMEN: There is no ascites. LIVER: There are no focal hepatic lesions evident. No dilated intrahepatic ducts. GALLBLADDER/BILIARY: No obvious gallbladder pathology. CBD is not dilated. PANCREAS: No evidence of pancreatic mass nor dilatation of the pancreatic duct. SPLEEN: Spleen is not enlarged. No obvious intrasplenic lesions. Splenic and portal veins are paten t. ADRENALS: There are no significant adrenal masses. KIDNEYS:No cysts evident. No solid renal masses. No calculi nor hydronephrosis.. ABDOMINAL AORTA: Abdominal aorta is not enlarged. LYMPH NODES:There is no retroperitoneal nor paraaortic adenopathy. ABDOMINAL WALL: No evidence of significant anterior abdominal wall nor inguinal hernia. GI: There is no evidence of bowel obstruction, free air, nor abscess. PELVIS: GI: No evidence of appendicitis.There are sigmoid diverticuli without evidence of obvious acute diver ticulitis. There are fluid-filled small bowel loops which exhibit upper normal diameters averaging 2 cm. There is also some fluid in the right-side of the colon. LYMPH NODES: There is no intrapelvic nor inguinal adenopathy. REPRODUCTIVE: IUD is again noted in satisfactory position in the endometrial canal of the uterus. No abnormal adnexal masses. There is a tiny amount of free fluid in the cul-de-sac URINARY BLADDER: No calculi nor obvious masses evident OSSEOUS: No fractures and no significant osseous lesions. IMPRESSION: 1. Compared to the prior CT scan of 12/27/2021 there is again noted an IUD in the endometrial canal t he uterus which appears to be in satisfactory position. There are no abnormal adnexal masses. There is a tiny amount of fluid in the cul-de-sac which is probably female physiologic. 2. There are sigmoid diverticuli without evidence of acute diverticulitis. Also no evidence of appen dicitis. 3. Fluid-filled small bowel loops noted as well as some fluid in the right-side of the colon. Possib le enteritis. 4. No evidence of bowel obstruction. No free air. RADIATION DOSE DELIVERED: 1,211.78mGy.cm Total DLP DATA REPOSITORY: All CT scans at this facility are submitted to the National Radiology Data Registry (NRDR) Dose Index Registry (DIR) with the [employer] (A[employer]). RADIATION OPTIMIZATION: All CT scans at this facility use at least one of these dose optimization te chniques: automated exposure control; mA and/or kV adjustment per patient size (includes targeted exa ms where dose is matched to clinical indication); or iterative reconstruction.
[2023-07-04] MEDS: Ondansetron 4 MG/2 ML VIAL IVP (07:38)
[2023-07-04 07:39] LABS: Lactate 1.6 mmol/L (0.6-1.4)
[2023-07-04 07:40] LABS: Abs Immature Grans 0.03 10^3/uL (0.0-0.06); Absolute Basophil Count 0.02 10^3/uL (0.0-0.2); Absolute Eosinophil Count 0.17 10^3/uL (0.0-0.7); Absolute Lymphocyte Count 2.32 10^3/uL (1.2-3.4); Absolute Monocyte Count 0.68 10^3/uL (0.1-0.8); Absolute Neutrophil Count 6.78 10^3/uL (1.2-6.7); Basophils % 0.2 %; Eosinophils % 1.7 %; HCT 43.1 % (36.0-46.0); HGB 14.9 g/dL (11.2-15.7); Immature Grans % 0.3 %; Lymphocytes % 23.2 %; MCH 31.6 pg (27.0-33.0); MCHC 34.6 % (32.0-36.0); MCV 91 fL (80-95); MPV 9.7 fL (8.0-11.0); Monocytes % 6.8 %; Neutrophils % 67.8 %; Platelet Count 331 10^3/uL (130-400); RBC 4.72 10^6/uL (3.93-5.22); RDW 12.5 % (11.7-14.6); RDW-SD 41.8 fL
--- NOTE | 2023-07-04 07:47 | ED.GENADUL_ITS ---
Discharge Plan Disposition Patient Disposition: Home Condition: Good Discharge Details Clinical Impression: Enteritis Primary Care Provider: Harinder Matthews ED Provider: Jorge Conrad Home Meds and New Rx's Prescriptions: New dicyclomine 10 mg capsule 10 mg PO BID Qty: 10 0RF ondansetron 4 mg tablet,disintegrating 4 mg PO Q8H Qty: 20 0RF No Action multivitamin [Daily Multi-Vitamin] Tablet 1 tab PO DAILY Kyleena 17.5 mcg/24 hrs (5 yrs) 19.5 mg intrauterine device 1 device intrauterine ONCE Qty: 1 0RF Rx Instructions: as a single dose lamotrigine 100 mg tablet 100 mg PO BID Patient Comments: TAKE ONE TABLET BY MOUTH TWICE A DAY ibuprofen 600 mg tablet 600 mg PO TID Qty: 20 0RF Discharge Instructions Instructions: Enteritis (ED) Additional Instructions: At this time your workup is returned reassuring. You are a bit dehydrated. Thankfully there is no evidence of significant bacterial infection, pancreatitis, urinary tract infection appendicitis or other significant abnormality. I suspect a viral illness is caused your current symptoms of stomach irritation. Please take the dicyclomine/Bentyl as prescribed for continued pain and cramping. Please take the Zofran as needed for nausea. Please stick with a bland diet. If you notice any worsening of your symptoms, or any new symptoms such as vomiting, diarrhea, fever, chills, shortness of breath, chest pain, numbness, weakness, or fainting , please return immediately to the emergency department for reevaluation. Please follow up with your primary care provider as soon as possible for reassessment and reevaluation. As always, it was a pleasure participating in your medical care today. Referrals: Harinder Matthews [Primary Care Provider] - [facility] General Date/Time Provider Initiated Documentation: 07/04/23 07:14 . HPI Narrative: 37-year-old female with a past medical history of an IUD, x 2, no other significant past medical history who presents today for evaluation of abdominal pain. Patient states that 3 days ago she developed umbilical pain with associated nausea and some vomiting. Is relatively constant, she has not eaten much of anything over the last 3 days because of it. Over the last 24 hours it is radiated to the right flank and back, it is sharp and stabbing. It got extremely worse at 3 AM. She has been notably nauseous since then. She has not been drinking much fluid. She denies any urinary frequency, hematuria, diarrhea, or vaginal discharge. She denies symptoms like this in the past. No other sick contacts at home. She did take some Pepto-Bismol but this did not improve her symptoms. No fevers. No other complaints. Related Data Home Medications Medication Instructions Recorded Confirmed lamotrigine 100 mg tablet 100 mg PO BID 08/27/19 07/04/23 multivitamin (Daily Multi-Vitamin 1 tab PO DAILY 08/18/21 07/04/23 tablet) levonorgestrel 17.5 mcg/24 hr (up 1 device intrauterine ONCE #1 ea 09/25/21 07/04/23 to 5 yrs) 19.5mg intrauterine device (Kyleena) ibuprofen 600 mg tablet 600 mg PO TID #20 tabs 06/24/22 07/04/23 dicyclomine 10 mg capsule 10 mg PO BID #10 caps 07/04/23 ondansetron 4 mg disintegrating 4 mg PO Q8H #20 tabs 07/04/23 tablet Previous Rx's Medication Instructions Recorded levonorgestrel 17.5 mcg/24 hr (up 1 device intrauterine ONCE #1 ea 09/25/21 to 5 yrs) 19.5mg intrauterine device (Kyleena) ibuprofen 600 mg tablet 600 mg PO TID #20 tabs 06/24/22 dicyclomine 10 mg capsule 10 mg PO BID #10 caps 07/04/23 ondansetron 4 mg disintegrating 4 mg PO Q8H #20 tabs 07/04/23 tablet Allergies Allergy/AdvReac Type Severity Reaction Status Date / Time Antihistamines - Alkylamine Allergy Severe Seizure Verified 07/04/23 07:20 enoxaparin [From Lovenox] Allergy Skin Rash Verified 07/04/23 07:20 General Stated Complaint: Abd Prob ELZA: 3 Review of Systems All systems reviewed & are unremarkable except as noted in HPI and below Exam Narrative Exam Narrative: 1.Const: Well-nourished, Well-developed, appearing stated age 2.Eyes: PERRL, no conjunctival injection, and symmetrical lids. 3.ENT: Atraumatic external nose and ears. Moist MM. Neck: Symmetric, trachea midline, No thyromegaly. 4.CVS: +S1/S2, No murmurs or gallops. Peripheral pulses 2+ and equal in all extremities. Brisk capillary refill in all extremities. 5.RESP: Unlabored respiratory effort. Clear to auscultation bilaterally. No wheezes rales or rhonchi 6.GI: Voluntary guarding, notable umbilical right-sided and right flank tenderness. Pain at McBurney's point. Right upper quadrant tenderness present as well. 7.MSK: Normocephalic/Atraumatic, Extremities w/o deformity or ttp No cyanosis or clubbing, Normal movement of all extremities 8.Skin: Warm, Dry. No rashes or lesions. 9.Neuro: clinical safety specialist II-XII grossly intact. Sensation grossly intact, no focal neurologic deficits. 10.Psych: (AAO) x3. Appropriate mood and affect Course Vital Signs Vital signs: Vital Signs Temperature 37.1 C 07/04/23 07:13 Pulse 108 H 07/04/23 07:13 Respiratory Rate 18 07/04/23 07:13 Blood Pressure 130/94 H 07/04/23 07:13 Pulse Oximetry 99 07/04/23 07:13 Temperature 37.1 C 07/04/23 07:13 Temperature Source Tympanic 07/04/23 07:13 Pulse 108 H 07/04/23 07:13 Respiratory Rate 18 07/04/23 07:13 Blood Pressure 130/94 H 07/04/23 07:13 Blood Pressure Position Sitting 07/04/23 07:13 Pulse Oximetry 99 07/04/23 07:13 Oxygen Delivery Method Room Air 07/04/23 07:13 Oxygen Flow Rate 0 07/04/23 07:13 Pain Level 8 07/04/23 07:13 Lab/Test Results Lab/Test Results: Laboratory Tests Range/Units 07/04/23 07:30 WBC (4.4-10.8) 10^3/uL 10.00 RBC (3.93-5.22) 10^6/uL 4.72 Hgb (11.2-15.7) g/dL 14.9 Hct (36.0-46.0) % 43.1 MCV (80-95) fL 91 MCH (27.0-33.0) pg 31.6 MCHC (32.0-36.0) % 34.6 RDW (11.7-14.6) % 12.5 Plt Count (130-400) 10^3/uL 331 MPV (8.0-11.0) fL 9.7 Immature Gran % % 0.3 Neutrophils % % 67.8 Lymphocytes % % 23.2 Monocytes % % 6.8 Eosinophils % % 1.7 Basophils % % 0.2 Nucleated RBC % (0.0-0.3) % 0.0 Absolute Neutrophils (1.2-6.7) 10^3/uL 6.78 H Absolute Lymphocytes (1.2-3.4) 10^3/uL 2.32 Absolute Monocytes (0.1-0.8) 10^3/uL 0.68 Absolute Eosinophils (0.0-0.7) 10^3/uL 0.17 Absolute Basophils (0.0-0.2) 10^3/uL 0.02 VBG Lactate (0.6-1.4) mmol/L 1.6 H Medical Decision Making 37-year-old female with a past medical history of an IUD, x 2, no other significant past medical history who presents today for evaluation of abdominal pain. Patient states that 3 days ago she developed umbilical pain with associated nausea and some vomiting. Is relatively constant, she has not eaten much of anything over the last 3 days because of it. Over the last 24 hours it is radiated to the right flank and back, it is sharp and stabbing. It got extremely worse at 3 AM. She has been notably nauseous since then. She has not been drinking much fluid. She denies any urinary frequency, hematuria, diarrhea, or vaginal discharge. She denies symptoms like this in the past. No other sick contacts at home. She did take some Pepto-Bismol but this did not improve her symptoms. No fevers. No other complaints. Physical exam demonstrates notable right-sided abdominal tenderness, voluntary guarding. Pain is diffuse in the right side. Differential is broad, appendicitis is of concern, gallbladder pathology and pancreatitis is of concern. Kidney stone is of concern. Symptoms do not appear consistent with ovarian torsion however an ovarian cyst certainly is on the differential. We will treat the patient's pain, rehydrate, evaluated with CT scan, monitor closely and reassess. 11 AM Laboratory workup has returned, no white count bandemia or significant left shift. Lactate minimally elevated at 1.6, electrolytes normal, renal function good. Lipase normal. Urinalysis normal, CT scan shows evidence of mild enteritis, small fluid-filled small bowel loops, no diverticulitis or appendicitis. Bentyl Compazine no ferment for given, after this patient had no table improvement. She tolerated p.o. Repeat exam shows no evidence of an acute surgical abdomen. Pain is notably improved. Suspect viral enteritis. No evidence of mesenteric ischemia, appendicitis, diverticulitis, other significant abnormality otherwise. Patient was given a liter of lactated Ringer's. She feels well. Vital signs stable. Patient will be discharged home. Will give Bentyl and Zofran for home use. Discussed red flags for which to return. I have extensively reviewed the treatment plan and discharge instructions with the patient. I have addressed all patient concerns at this time. The patient was made aware of what symptoms to monitor for that would warrant a return to the emergency department. Discussed the plan with the patient, they demonstrate verbal understanding and agreement with our assessment and plan at this time. The documentation in this chart was dictated using [employer] dictation software. Please excuse any dictation errors. FINDINGS: VISUALIZED LUNG BASES: No nodules nor pleural effusions evident. ABDOMEN: There is no ascites. LIVER: There are no focal hepatic lesions evident. No dilated intrahepatic ducts. GALLBLADDER/BILIARY: No obvious gallbladder pathology. CBD is not dilated. PANCREAS: No evidence of pancreatic mass nor dilatation of the pancreatic duct. SPLEEN: Spleen is not enlarged. No obvious intrasplenic lesions. Splenic and portal veins are patent. ADRENALS: There are no significant adrenal masses. KIDNEYS:No cysts evident. No solid renal masses. No calculi nor hydronephrosis.. ABDOMINAL AORTA: Abdominal aorta is not enlarged. LYMPH NODES:There is no retroperitoneal nor paraaortic adenopathy. ABDOMINAL WALL: No evidence of significant anterior abdominal wall nor inguinal hernia. GI: There is no evidence of bowel obstruction, free air, nor abscess. PELVIS: GI: No evidence of appendicitis.There are sigmoid diverticuli without evidence of obvious acute diverticulitis. There are fluid-filled small bowel loops which exhibit upper normal diameters averaging 2 cm. There is also some fluid in the right-side of the colon. LYMPH NODES: There is no intrapelvic nor inguinal adenopathy. REPRODUCTIVE: IUD is again noted in satisfactory position in the endometrial canal of the uterus. No abnormal adnexal masses. There is a tiny amount of free fluid in the cul-de-sac URINARY BLADDER: No calculi nor obvious masses evident OSSEOUS: No fractures and no significant osseous lesions. IMPRESSION: 1. Compared to the prior CT scan of 12/27/2021 there is again noted an IUD in the endometrial canal the uterus which appears to be in satisfactory position. There are no abnormal adnexal masses. There is a tiny amount of fluid in the cul-de-sac which is probably female physiologic. 2. There are sigmoid diverticuli without evidence of acute diverticulitis. Also no evidence of appendicitis. 3. Fluid-filled small bowel loops noted as well as some fluid in the right-side of the colon. Possible enteritis. 4. No evidence of bowel obstruction. No free air. Quality:SDOH Health Related Social Needs: No Data to Display PFSH All Active Problems (Updated 07/04/23 @ 10:34 by Jorge Conrad DO) Enteritis (Acute) Lipoma (Acute) Tear of medial collateral ligament of left knee (Acute 06/24/22) Internal derangement of left knee (Acute ~06/24/22) History of chronic sinusitis (Acute) History of cellulitis (Acute 06/28/15) History of shingles (Acute) History of smoking (Acute) IUD (intrauterine device) in place (Acute) IUD (intrauterine device) in place (Acute) Other social stressor (Acute) Dysmenorrhea (Chronic) since of her daughter 06/2020. Not a candidate for OCPs. Counseled re; IUD for non-contraceptive benefits. Conductive hearing loss in right ear (Acute) Dysfunction of right eustachian tube (Acute) Back pain (Acute) Hip pain (Acute) Foot drop, left (Acute) Subcutaneous mass of right upper extremity (Acute) BMI 37.0-37.9, adult (Acute) Migraine (Chronic) naproxen PRN Family history of malignant neoplasm of breast (Acute) Unclear if breast cancer was primary. Mother of colon cancer age 58. Family history of malignant neoplasm of colon (Chronic) Mother at 58 years of age. Patient needs early screening colonoscopy. Smoker (Acute) Dental caries (Acute 06/28/15) Arthritis of ankle, left (Acute 10/04/16) Medical History Tinnitus, bilateral Seizure disorder (06/28/15) Posterior tibial tendon dysfunction, left (10/04/16) Chronic maxillary sinusitis (06/28/15) Surgical History History of female sterilization 2020 at time of repeat delivery History of delivery x2 with tubal sterilization 2020. History of sinus surgery History of ankle surgery Family History Mother , at 59 Ovarian cancer Breast cancer Unsure Colon cancer at age 59 Maternal Cousin Colon cancer Father No problems noted. Maternal Grandmother Breast cancer Social History Smoking/Tobacco Use Status: Current every day Tobacco Type: cigarettes Quit status: has quit before Smoking risk assessment performed?: Yes Alcohol Intake: never Drug use: Never Substance use type: does not use Housing: house Current gender identity: female Seatbelt use: always Do you feel safe at home: Yes Do you feel safe in your relationship?: Yes Female Reproductive History Menstrual control method: permanent sterilization (At time of delivery 2020.) History History 2 Para 2 Hx # Term Pregnancies 2 Multiple births 0 Hx # Pregnancies 0 Ectopic pregnancies 0 AB induced 0 Hx Number of Living Children 1 AB spontaneous 1 Past Pregnancies Del. Date GA/Weeks # Preg Succ Route Wgt Sex Labor Lgth Anesth esia Location [facility] 10/16/12 38 No 3770.487 g Female 24 hours regional [facility] 06/07/20 39 No Yes 3801 g Female Pt el ected to deliver at [facility] Delivery Date: 10/16/12 Last Updated by: Nirmala Mishra CNM Pitocin augmentation at [facility], prodromal labor and evaluated at [facility] and patient chose to go to [facility] for care. Delivery Date: 06/07/20 Last Updated by: Luz Martínez MD Elective repeat LTCS with tubal sterilization.
[2023-07-04] MEDS: MORPHine 4 MG/ML SYR IVP ×2 (07:48→08:51)
[2023-07-04] MEDS: Lactated Ringers 1,000 ML 1000 ML IV (07:51)
[2023-07-04 07:57] LABS: ALT 29 U/L (14-59); AST 13 U/L (15-37); Albumin 4.1 g/dL (3.4-5.0); Alkaline Phosphatase 101 U/L (46-116); BUN 5 mg/dL (7-18); Bilirubin, Total 0.3 mg/dL (0.2-1.0); CREATININE 0.9 mg/dL (0.55-1.02); Chloride 106 mmol/L (98-107); Estimated GFR 83.92 (mL/min/1.73m2); Glucose 107 mg/dL (74-106); Lipase 24 U/L (16-77); Sodium 142 mmol/L (136-145); Total Protein 7.7 g/dL (6.4-8.2)
[2023-07-04 07:58] VITALS: BP 130/94; PULSE 108; RESP 18; TEMP 37.1; O2SAT 99
[2023-07-04 08:20] LABS: Bilirubin Negative (Negative); Blood Negative (Negative); Clarity Clear (Clear); Glucose Negative (Negative); Ketones Negative (Negative); Leukocyte Esterase Negative (Negative); Nitrite Negative (Negative); Urobilinogen 0.2 mg/dL (Up to 0.2)
[2023-07-04] MEDS: Ketorolac 15 MG/ML VIAL IVP (08:21)
[2023-07-04] MEDS: Normal Saline - Diluent 50 ML VIAL IJ (08:42)
[2023-07-04] MEDS: Omnipaque 350 MG/ML 100 ML BTL IJ (08:43)
[2023-07-04] MEDS: Prochlorperazine 10 MG/2 ML VIAL IVP (09:26)
[2023-07-04] MEDS: ACETAMINOPHEN 1,000 MG/100 ML BTL 400 MG IVPB (09:27)
[2023-07-04] MEDS: Dicyclomine 20 MG TAB PO (09:28)
[2023-07-04 09:30] VITALS: BP 116/69; PULSE 76; RESP 18; O2SAT 99
[2023-07-04 10:42] VITALS: BP 116/69; PULSE 72; RESP 16; TEMP 37.1; O2SAT 99
== END 2023-07-04 10:56 | disposition home or self-care (01) ==
PROVIDERS: Emergency Provider Student in an Organized Health Care Education/Training Program; PCP Family Medicine
DX: K52.9 Noninfective gastroenteritis and colitis, unspecified (principal); F17.210 Nicotine dependence, cigarettes, uncomplicated
CPT/HCPCS: 36415; 80053; 81025; 83690; 96365; 96375; 96376; 99285; 74177; 81003; 83605; 85025; 99284; J0131; J0780; J1885; J2270; J2405; J3490

== ENCOUNTER → 2023-07-09 10:39 | Outpatient (BNVA) | payer MEDICARE, MEDICAID, SELFPAY | PROVIDERS: PCP Family Medicine; Referring Provider Family Medicine; Visit Provider Surgery | DX: L98.9 Disorder of the skin and subcutaneous tissue, unspecified (principal); F17.200 Nicotine dependence, unspecified, uncomplicated; Z68.37 Body mass index [BMI] 37.0-37.9, adult | CPT/HCPCS: 99213 ==

== ENCOUNTER → 2023-09-05 09:23 | Outpatient (BNVA) | payer MEDICARE, MEDICAID, SELFPAY | PROVIDERS: Visit Provider Surgery | DX: D17.21 Benign lipomatous neoplasm of skin and subcutaneous tissue of right arm (principal); D17.22 Benign lipomatous neoplasm of skin and subcutaneous tissue of left arm | CPT/HCPCS: 11403 ==

== ENCOUNTER 2023-09-05 10:58 | Outpatient (REF) | payer MEDICARE, MEDICAID, SELFPAY ==
--- NOTE | 2023-09-05 10:15 | SKI_PTH ---
PATIENT: Rupinder Centeno LOC: [facility] U#:[id number] AGE/SX: 37/F ROOM: RE09/05/[address]: Demi Velez : 1985 BED: DIS: 09/05/2023 SPEC #: [id number] RECD: 09/05/23 13:03 STATUS: SADAF REVeronica #: [id number] MENDEZ: 09/05/23 10:[address]: Demi Velez DEPT: Surgical Specimen RECD BY: Raine Gonsales ENTERED: 09/05/23 13:03 SP TYPE: PABLO MORRIS DR: None Tissues: 1 - SKIN BIOPSY(SHAVE/PUNCH) 2 - SKIN BIOPSY(SHAVE/PUNCH) Procedures: GROSS AND MICRO LEVEL 3 Comments: [id number]
== END 2023-09-05 10:59 | disposition home or self-care (01) ==
LOC: LBN 10:58
PROVIDERS: Visit Provider Surgery
DX: L72.9 Follicular cyst of the skin and subcutaneous tissue, unspecified (principal); D17.22 Benign lipomatous neoplasm of skin and subcutaneous tissue of left arm; D17.21 Benign lipomatous neoplasm of skin and subcutaneous tissue of right arm
CPT/HCPCS: 88304; 88305

== ENCOUNTER → 2023-09-14 09:52 | Outpatient (BNVA) | payer MEDICARE, MEDICAID, SELFPAY | PROVIDERS: Visit Provider Physical Therapy Assistant | DX: Z48.02 Encounter for removal of sutures (principal) ==

== ENCOUNTER 2023-11-21 12:37 | Outpatient (CLI) | payer MEDICARE, MEDICAID, SELFPAY ==
--- NOTE | 2023-11-21 | DI.RAD_ITS ---
Exam(s) XR CHEST 2V PA LATERAL EXAM: XR CHEST 2V PA LATERAL CLINICAL HISTORY: COUGH, R05.9. TECHNIQUE: 2D digital imaging was performed. COMPARISON: CR XR PORTABLE CHEST AP from 12/27/2021 FINDINGS: 2 views: Heart size is normal. The mediastinum is not widened. Lungs are clear. No infiltrates nor pleural effusions. IMPRESSION: No acute pulmonary findings. DATA REPOSITORY: RADIATION DOSE DELIVERED:
== END 2023-11-21 12:57 ==
LOC: DI 12:38
PROVIDERS: Visit Provider Physician Assistant Medical
DX: R05.9 Cough, unspecified (principal)
CPT/HCPCS: 71046

== ENCOUNTER 2024-01-07 19:12 | Emergency (ER) | payer MEDICARE, MEDICAID, SELFPAY ==
--- NOTE | 2024-01-07 19:15 | DI.RAD_ITS ---
Exam(s) XR ELBOW RT COMPLETE EXAM: XR ELBOW RT COMPLETE CLINICAL HISTORY: R elbow pain. TECHNIQUE: 2D digital imaging was performed of the left elbow. Three images were obtained. AP, lat eral and oblique views were obtained. COMPARISON: CR RIGHT FOREARM from 08/01/2017 FINDINGS: BONES: No acute fracture is present. No bony destructive lesion is seen. JOINTS: The elbow is normally aligned. No joint effusion is seen. SOFT TISSUE: Normal. IMPRESSION: Unremarkable radiographs of the right elbow. DATA REPOSITORY: RADIATION DOSE DELIVERED:
[2024-01-07 19:18] VITALS: BP 127/83; PULSE 110; RESP 20; TEMP 36.8; O2SAT 98
--- NOTE | 2024-01-07 19:21 | ED.GENADUL_ITS ---
Discharge Plan Disposition Patient Disposition: Home Condition: Stable Discharge Details Clinical Impression: Contusion of right elbow Primary Care Provider: None,None ED Provider: Jorge Winchester Home Meds and New Rx's Prescriptions: Continued multivitamin [Daily Multi-Vitamin] Tablet 1 tab PO DAILY Kyleena 17.5 mcg/24 hrs (5 yrs) 19.5 mg intrauterine device 1 device intrauterine ONCE Qty: 1 0RF Rx Instructions: as a single dose lamotrigine 100 mg tablet 100 mg PO BID Patient Comments: TAKE ONE TABLET BY MOUTH TWICE A DAY Discharge Instructions Instructions: Bursitis, Minor Contusion ED Additional Instructions: You were seen in the emergency department for a bump in your right elbow and to a printer at work today, you likely have a minor contusion versus a mild bursitis of the right elbow, please use gentle compression wraps and ice and alternate heat to the area, please use therapeutic dosing of Tylenol (acetamenophen) & Advil (ibuprofen) in an alternating fashion as follows: Take 1000mg of Tylenol every 6 hours without missing doses- that is 4 times per day. Fdc in between the Tylenol dosings, take 400-600mg of Advil also on a 6 hour schedule, that is also 4 times per day. The daily maximum dosing of Tylenol is 4000mg, and the daily maximum dosing of Advil is 2400mg. This is safe to do for weeks. Please note that some common cold medications & prescription pain medications may contain acetamenophen and you need to read OTC drug labels and factor that in to maximum daily dosings. Take 2 days off, follow-up with orthopedics for persistent or worsening pain over the course of 2 weeks, return to the emergency department for signs of neurovascular compromise distal to the right elbow Stand Alone Forms: Work Release Discharge Data Discharge Date/Time-TO BE ENTERED AT DEPARTURE: 01/07/24 20:45 HPI General Date/Time Provider Initiated Documentation: 01/07/24 19:21 . 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 Quality described as burning sensation, pain around medial R elbow, no radiation to deformity, ecchymosis, inability to move elbow, numbness/tingling distally. Severity is described as 7/10. Palliating factors include OTC analgesics. Provoking factors include nothing specific. Patient not anticoagulated. Related Data Home Medications ?Medication ?Instructions ?Recorded ?Confirmed lamotrigine 100 mg tablet 100 mg PO BID 08/27/19 01/07/24 multivitamin (Daily Multi-Vitamin 1 tab PO DAILY 08/18/21 01/07/24 tablet) levonorgestrel 17.5 mcg/24 hr (up 1 device intrauterine ONCE #1 ea 09/25/21 01/07/24 to 5 yrs) 19.5mg intrauterine device (Kyleena) Previous Rx's ?Medication ?Instructions ?Recorded levonorgestrel 17.5 mcg/24 hr (up 1 device intrauterine ONCE #1 ea 09/25/21 to 5 yrs) 19.5mg intrauterine device (Kyleena) Allergies Allergy/AdvReac Type Severity Reaction Status Date / Time Antihistamines - Alkylamine Allergy Severe Seizure Verified 01/07/24 19:21 enoxaparin (From Lovenox) Allergy Skin Rash Verified 01/07/24 19:21 General Stated Complaint: Orthopedic ELZA: 4 Review of Systems All systems reviewed & are unremarkable except as noted in HPI and below Exam Narrative Exam Narrative: GENERAL APPEARANCE: Well-nourished, non-toxic, awake and alert, atraumatic, no acute distress. SKIN: Warm, pink, dry, intact, without rashes/lesions/ulcerations. HEAD: Normocephalic, atraumatic, normal hair distribution for gender/age. EYES: Normal conjunctiva, no exudates on lids/lashes. ENT: Nares patent, no circumoral cyanosis, no facial swelling NECK: Supple, trachea midline, painless cervical ROM. LUNGS/CHEST: Non-labored respirations, normal A/P diameter, symmetrical expansion, no chest wall deformity HEART (CV/PV): Regular rate, R radial pulse 2+, no peripheral edema, no JVD. ABDOMEN: Soft, non-distended, no guarding. MSK: Normal ROM, no swelling/deformity to bilateral UEs or LEs, moving all extremities without weakness, no cyanosis, spine midline without tenderness, normal curvature, mild soft tissue swelling at the right medial elbow, biceps tendon intact, full range of motion at the right elbow, neurovascularly intact distal, no ecchymosis NEURO: Mental Status AAOx4 - alert to person, place, time, events No facial droop, no forehead involvement. Motor: No focal weakness - strength 5/5 in bilateral UEs and LEs, proximal and distal, symmetric. Sensory: sensation intact to light touch globally. Gait normal: patient ambulated without ataxia into ED room. PSYCH: euthymic, cooperative, pleasant, appropriate speech Course Vital Signs Vital signs: Vital Signs Temperature 36.8 C 01/07/24 19:18 Pulse 110 H 01/07/24 19:18 Respiratory Rate 20 01/07/24 19:18 Blood Pressure 127/83 01/07/24 19:18 Pulse Oximetry 98 01/07/24 19:18 Temperature 36.8 C 01/07/24 19:18 Temperature Source Oral 01/07/24 19:18 Pulse 110 H 01/07/24 19:18 Respiratory Rate 20 01/07/24 19:18 Blood Pressure 127/83 01/07/24 19:18 Pulse Oximetry 98 01/07/24 19:18 Oxygen Delivery Method Room Air 01/07/24 19:18 Oxygen Flow Rate 0 01/07/24 19:18 Pain Level 8 01/07/24 19:18 Medical Decision Making This dictation utilizes [id number] dictation software and may contain unedited grammatical errors. 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 Quality described as burning sensation, pain around medial R elbow, no radiation to deformity, ecchymosis, inability to move elbow, numbness/tingling distally. Severity is described as 7/10. Palliating factors include OTC analgesics. Provoking factors include nothing specific. Patients' medical history: Noncontributory. Family and social history: Noncontributory. Pertinent exam findings / vital signs include mild soft tissue swelling at the right medial elbow, biceps tendon intact, full range of motion at the right elbow, neurovascularly intact distal, no ecchymosis. Differential / pathologies of concern include contusion, bursitis. Diagnostic studies of: -XR R elbow-no acute abnormality. Interventions of: -Wrap the elbow with gentle compression wrap, provided 2-day work note. ED Course/Assessment/Plan: 38-year-old female presents with a right elbow injury from pain her elbow on a printer, she has mild soft tissue swelling, biceps tendon is intact she has full range of motion and no ecchymosis and no bony tenderness, no fracture on x-ray, counseled on gentle compression wrap for possible contusion versus bursitis as well as alternating heat and ice to the area and using therapeutic dosing of Tylenol and ibuprofen, follow-up with orthopedics for failure to improve in 2 weeks, return for signs of neurovascular compromise. Findings not consistent with fracture, neurovascular compromise. Disposition of contusion of right elbow. Patient verbalized understanding of the plan and return to ED criteria and engaged in shared decision making. Medical Records Medical records reviewed: Yes I reviewed the patient's medical records. Imaging Data Radiologic Study: Attestation: I personally reviewed and interpreted this imaging study as follows: Imaging: X-Ray Radiologist's impression: Exam: XR Right Elbow Exam date and time: 01/07/2024 7:42 PM Age: 38 years old Clinical indication: Injury or trauma; Other: Hit elbow; Blunt trauma (contusions or hematomas); Right; Injury date: 01/07/24; Injury details: Hit R elbow TECHNIQUE: Imaging protocol: Radiologic exam of the right elbow. Views: 3 or more views. COMPARISON: CR RIGHT FOREARM 08/01/2017 10:43 AM FINDINGS: Bones/joints: Osseous mineralization is normal. There are no inflammatory osseous erosive changes. The joint spaces are maintained without degenerative changes. There is no evidence of a joint effusion. There are no acute displaced fractures or subluxations. No focal osseous lesions are identified. Soft tissues: Normal. IMPRESSION: No acute displaced fractures or subluxations identified. Dictated and Authenticated by: Harinder Servin MD. Quality:SDOH Health Related Social Needs: No Data to Display PFSH All Active Problems (Updated 01/07/24 @ 20:28 by TOPHER Mora) Contusion of right elbow (Acute) Visit for suture removal (Acute) Lipoma (Acute) Tear of medial collateral ligament of left knee (Acute 06/24/22) Internal derangement of left knee (Acute ~06/24/22) History of chronic sinusitis (Acute) History of cellulitis (Acute 06/28/15) History of shingles (Acute) History of smoking (Acute) IUD (intrauterine device) in place (Acute) IUD (intrauterine device) in place (Acute) Other social stressor (Acute) Dysmenorrhea (Chronic) since of her daughter 06/2020. Not a candidate for OCPs. Counseled re; IUD for non-contraceptive benefits. Conductive hearing loss in right ear (Acute) Dysfunction of right eustachian tube (Acute) Back pain (Acute) Hip pain (Acute) Foot drop, left (Acute) Subcutaneous mass of right upper extremity (Acute) BMI 37.0-37.9, adult (Acute) Migraine (Chronic) naproxen PRN Family history of malignant neoplasm of breast (Acute) Unclear if breast cancer was primary. Mother of colon cancer age 58. Family history of malignant neoplasm of colon (Chronic) Mother at 58 years of age. Patient needs early screening colonoscopy. Smoker (Acute) Dental caries (Acute 06/28/15) Arthritis of ankle, left (Acute 10/04/16) Medical History Tinnitus, bilateral Seizure disorder (06/28/15) Posterior tibial tendon dysfunction, left (10/04/16) Chronic maxillary sinusitis (06/28/15) Surgical History History of female sterilization 2020 at time of repeat delivery History of delivery x2 with tubal sterilization 2020. History of sinus surgery History of ankle surgery Family History Mother , at 59 Ovarian cancer Breast cancer Unsure Colon cancer at age 59 Maternal Cousin Colon cancer Father No problems noted. Maternal Grandmother Breast cancer Social History Smoking/Tobacco Use Status: Current every day Tobacco Type: cigarettes Quit status: has quit before Smoking risk assessment performed?: Yes Alcohol Intake: never Drug use: Never Substance use type: does not use Housing: house Current gender identity: female Seatbelt use: always Do you feel safe at home: Yes Do you feel safe in your relationship?: Yes Female Reproductive History Menstrual control method: permanent sterilization (At time of delivery 2020.) History History 2 Para 2 Hx # Term Pregnancies 2 Multiple births 0 Hx # Pregnancies 0 Ectopic pregnancies 0 AB induced 0 Hx Number of Living Children 1 AB spontaneous 1 Past Pregnancies Del. Date GA/Weeks # Preg Succ Route Wgt Sex Labor Lgth Anesth esia Location Prov [facility] 10/16/12 38 No 3770.487 g Female 24 hours [facility] 06/07/20 38 No Yes 3801 g Female Pt el ected to deliver at [facility] Delivery Date: 10/16/12 Last Updated by: Nirmala Mishra CNM Pitocin augmentation at [facility], prodromal labor and evaluated at [facility] and patient chose to go to [facility] for care. Delivery Date: 06/07/20 Last Updated by: Luz Martínez MD Elective repeat LTCS with tubal sterilization. Bety.
--- NOTE | 2024-01-07 20:55 | DI.VRAD_ITS ---
PROCEDURE INFORMATION: Exam: XR Right Elbow Exam date and time: 01/07/2024 7:42 PM Age: 38 years old Clinical indication: Injury or trauma; Other: Hit elbow; Blunt trauma (contusions or hematomas); Right; Injury date: 01/07/24; Injury details: Hit R elbow TECHNIQUE: Imaging protocol: Radiologic exam of the right elbow. Views: 3 or more views. COMPARISON: CR RIGHT FOREARM 08/01/2017 10:43 AM FINDINGS: Bones/joints: Osseous mineralization is normal. There are no inflammatory osseous erosive changes. The joint spaces are maintained without degenerative changes. There is no evidence of a joint effusion. There are no acute displaced fractures or subluxations. No focal osseous lesions are identified. Soft tissues: Normal. IMPRESSION: No acute displaced fractures or subluxations identified. Dictated and Authenticated by: Harinder Servin MD. Ordering:AMANDA Patel MD
== END 2024-01-07 20:45 | disposition home or self-care (01) ==
PROVIDERS: Emergency Provider Physician Assistant
DX: S50.01XA Contusion of right elbow, initial encounter (principal); W22.8XXA Striking against or struck by other objects, initial encounter; Y93.89 Activity, other specified; Y92.89 Other specified places as the place of occurrence of the external cause; Y99.0 Civilian activity done for income or pay; F17.210 Nicotine dependence, cigarettes, uncomplicated
CPT/HCPCS: 99284; 73080

== ENCOUNTER 2024-01-25 20:35 | Emergency (ER) | payer MEDICARE, MEDICAID, SELFPAY ==
[2024-01-25 20:39] VITALS: BP 141/85; PULSE 85; RESP 20; TEMP 36.6; O2SAT 99
[2024-01-25 20:42] VITALS: BP 141/85; PULSE 85; RESP 20; TEMP 36.6; O2SAT 99
--- NOTE | 2024-01-25 21:00 | DI.CT_ITS ---
Exam(s) CT BRAIN NECK CTA EXAM: CT BRAIN NECK CTA CLINICAL HISTORY: vertigo; tinnitus. TECHNIQUE: Imaging Protocol: Axial CT angiography was performed with multi-slice acquisition and mu lti-planar and/or 3D reconstructions. CONTRAST MATERIAL: Intravenous: Omnipaque 350 Contrast volume:70 mL COMPARISON: CT CT NECK W from 04/17/2023 FINDINGS: CTA Neck W: Aortic arch anatomy: The aortic arch anatomy is conventional and there is no significant stenosis at the origin of the great vessels off of the aortic arch. No intimal flap evident. Anterior circulation: Both common carotid arteries ascend with normal luminal diameters. At the level the carotid bulbs and proximal internal carotid arteries there is no significant plaque and no hemodynamically significant stenosis evident on either side. Internal carotid arteries are nicely patent in the upper neck and skull base-carotid canals. Posterior circulation: Both vertebral arteries originate in conventional fashion off of the subclavian arteries and there is no obvious stenosis at the origin of the vertebral arteries. Both vertebral arteries exhibit normal and approximately equal luminal diameters within the foramen t ransversarium. Both vertebral arteries contribute to the formation of the basilar artery at the skull base. CTA Brain W: Anterior circulation: Both internal carotid arteries are patent in the skull base-carotid canals as well as within the cave rnous sinuses. The supraclinoid aspects of the ICAs are patent. Both A1 segments are patent as are the anterior cer ebral arteries and there is no evidence of aneurysm at the level of the anterior communicating artery . Both middle cerebral arteries are patent with no evidence of significant stenosis nor intraluminal th rombus. There also no aneurysms of these vessels. Posterior circulation: The basilar artery ascends in the midline. Distally it gives off patent bilateral superior cerebella r arteries. Above this level the basilar artery terminates as patent bilateral posterior cerebral arteries. The left posterior artery is predominantly fed by a posterior communicating artery on the left side of th e [id number]. There is no evidence of aneurysm at the tip of the basilar artery nor elsewhere in the [id number] is. CT BRAIN: There is no evidence of intracranial hemorrhage, mass effect, or shift of midline structures. There are no extra-axial fluid collections. Ventricles are not enlarged or shifted. There are no ring enh ancing lesions in the brain and no abnormal meningeal enhancement. Large post inflammatory retention cyst is noted in the right maxillary sinus. There is minimal mucos al thickening left maxillary sinus, less than was present April 2023. Other paranasal sinuses are clear as are the mastoid air cells. IMPRESSION: 1. Patent carotid arteries in the neck. No hemodynamically significant stenosis. 2. Patent vertebral arteries. 3. Patent intracranial arteries. 4. No aneurysms. No ring enhancing lesions in the brain. No abnormal meningeal enhancement. No obv ious infarct evident on CT scan. RADIATION DOSE DELIVERED: 2,231.59mGy.cm Total DLP DATA REPOSITORY: All CT scans at this facility are submitted to the National Radiology Data Registry (NRDR) Dose Index Registry (DIR) with the [employer] (A[employer]). RADIATION OPTIMIZATION: All CT scans at this facility use at least one of these dose optimization te chniques: automated exposure control; mA and/or kV adjustment per patient size (includes targeted exa ms where dose is matched to clinical indication); or iterative reconstruction.
--- NOTE | 2024-01-25 21:08 | W.ED.GENAD ---
Discharge Plan Disposition Patient Disposition: Home Condition: Stable Discharge Details Clinical Impression: Benign paroxysmal positional vertigo Primary Care Provider: None,None ED Provider: Jorge Winchester Home Meds and New Rx's Prescriptions: New meclizine 25 mg tablet 25 mg PO BID PRN (Reason: vertigo) Qty: 30 0RF Continued multivitamin [Daily Multi-Vitamin] Tablet 1 tab PO DAILY Kyleena 17.5 mcg/24 hrs (5 yrs) 19.5 mg intrauterine device 1 device intrauterine ONCE Qty: 1 0RF Rx Instructions: as a single dose lamotrigine 100 mg tablet 100 mg PO BID Patient Comments: TAKE ONE TABLET BY MOUTH TWICE A DAY Discharge Instructions Instructions: Meclizine, Vertigo ED Additional Instructions: You were seen in the emergency department for your vertigo, you likely have benign paroxysmal positional vertigo, I am referring you to physical therapy for vestibular rehab. I have sent a prescription of meclizine to your pharmacy which should help with some of the dizziness. Please stay well-hydrated, please return to the emergency department for any worsening neurologic status like difficulty in coordination, worsening right ear pain any lesions appearing around the right ear, any facial paralysis or droop, any ringing in your ears neck coincides with your pulse and heart rate, any loss of vision. Stand Alone Forms: Physical Therapy Referral Referrals: [facility] [Provider Group] Discharge Data Discharge Date/Time-TO BE ENTERED AT DEPARTURE: 01/25/24 21:56 HPI General Date/Time Provider Initiated Documentation: 01/25/24 20:43. HPI Narrative: 38 year-old female presents to ED today by POV/ambulating with a chief complaint of vertigo, has had prior episodes but never this bad, endorses throbbing tinnitus as well with onset of R ear pain two days ago, having dizziness today, worse when looking down or up. Quality described as severe vertigo, occasional diplopia, nausea without vomiting, right ear pain with throbbing tinnitus, denies tinnitus with pulse, no radiation to fever, neck stiffness, coordination difficulties, chest pain, shortness of breath, abdominal pain. Severity is described as severe. Palliating factors include nothing specific attempted. Provoking factors include nothing specific. Events leading up to the incident/Associated Symptoms: Patient has been to vestibular rehab in the past but has no formal BPPV diagnosis. Patient not anticoagulated. Related Data Home Medications ?Medication ?Instructions ?Recorded ?Confirmed lamotrigine 100 mg tablet 100 mg PO BID 08/27/19 01/25/24 multivitamin (Daily Multi-Vitamin 1 tab PO DAILY 08/18/21 01/25/24 tablet) levonorgestrel 17.5 mcg/24 hr (up 1 device intrauterine ONCE #1 ea 09/25/21 01/25/24 to 5 yrs) 19.5mg intrauterine device (Kyleena) meclizine 25 mg tablet 25 mg PO BID PRN vertigo #30 tabs 01/25/24 Previous Rx's ?Medication ?Instructions ?Recorded levonorgestrel 17.5 mcg/24 hr (up 1 device intrauterine ONCE #1 ea 09/25/21 to 5 yrs) 19.5mg intrauterine device (Kyleena) meclizine 25 mg tablet 25 mg PO BID PRN vertigo #30 tabs 01/25/24 Allergies Allergy/AdvReac Type Severity Reaction Status Date / Time Antihistamines - Alkylamine Allergy Severe Seizure Verified 01/25/24 20:38 enoxaparin (From Lovenox) Allergy Skin Rash Verified 01/25/24 20:38 General Stated Complaint: EarProblem ELZA: 4 Review of Systems All systems reviewed & are unremarkable except as noted in HPI and below Exam Narrative Exam Narrative: GENERAL APPEARANCE: Well-nourished, non-toxic, awake and alert, atraumatic, no acute distress. SKIN: Warm, pink, dry, intact, without rashes/lesions/ulcerations. HEAD: Normocephalic, atraumatic, normal hair distribution for gender/age. EYES: Normal conjunctiva, no exudates on lids/lashes. EOMs intact without nystagmus ENT: Nares patent, no circumoral cyanosis, no facial swelling bilateral TMs benign, no mastoid tenderness NECK: Supple, trachea midline, painless cervical ROM. LUNGS/CHEST: Lungs CTA bilaterally, non-labored respirations, normal A/P diameter, symmetrical expansion, no chest wall deformity HEART (CV/PV): Regular rate and rhythm without murmur, no peripheral edema, no JVD. ABDOMEN: Soft, non-distended, no guarding. MSK: Normal ROM, no swelling/deformity to bilateral UEs or LEs, moving all extremities without weakness, no cyanosis, spine midline without tenderness, normal curvature. NEURO: Mental Status AAOx4 - alert to person, place, time, events No facial droop, no forehead involvement, no dysmetria with cerebellar testing, hints exam negative Motor: No focal weakness - strength 5/5 in bilateral UEs and LEs, proximal and distal, symmetric. Sensory: sensation intact to light touch globally. Gait normal: patient ambulated without ataxia into ED room. PSYCH: euthymic, cooperative, pleasant, appropriate speech Course Vital Signs Vital signs: Vital Signs Temperature 36.6 C 01/25/24 20:39 Pulse 85 01/25/24 20:39 Respiratory Rate 20 01/25/24 20:39 Blood Pressure 141/85 H 01/25/24 20:39 Pulse Oximetry 99 01/25/24 20:39 Temperature 36.6 C 01/25/24 20:42 Pulse 85 01/25/24 20:42 Respiratory Rate 20 01/25/24 20:42 Respiratory Effort Normal, Non-Labored 01/25/24 20:42 Blood Pressure 141/85 H 01/25/24 20:42 Pulse Oximetry 99 01/25/24 20:42 Oxygen Delivery Method Room Air 01/25/24 20:42 Oxygen Flow Rate 0 01/25/24 20:42 Pain Level 6 01/25/24 20:42 Medical Decision Making This dictation utilizes [id number] dictation software and may contain unedited grammatical errors. 38 year-old female presents to ED today by POV/ambulating with a chief complaint of vertigo, has had prior episodes but never this bad, endorses throbbing tinnitus as well with onset of R ear pain two days ago, having dizziness today, worse when looking down or up. Quality described as severe vertigo, occasional diplopia, nausea without vomiting, right ear pain with throbbing tinnitus, denies tinnitus with pulse, no radiation to fever, neck stiffness, coordination difficulties, chest pain, shortness of breath, abdominal pain. Severity is described as severe. Palliating factors include nothing specific attempted. Provoking factors include nothing specific. Events leading up to the incident/Associated Symptoms: Patient has been to vestibular rehab in the past but has no formal BPPV diagnosis. Patients' medical history: Seizure disorder, history of shingles, migraine. Family and social history: Denies illicit substance use and EtOH use. Pertinent exam findings / vital signs include hints exam negative, neuro intact, TMs benign, no mastoid tenderness, no nuchal rigidity. Differential / pathologies of concern include pseudotumor cerebri, M?ni?re's disease, benign paroxysmal positional vertigo, vestibular migraine, unlikely brain mass, schwannoma. Diagnostic studies of: -CBC, CMP, TSH, CTA brain and neck with contrast. -CBC shows no leukocytosis -CMP shows no acute abnormality -TSH WNL -CTA brain & neck without acute pathology Interventions of: -25 mg meclizine. Refer vestibular rehab/PT ED Course/Assessment/Plan: 38-year-old female presents with positional vertigo, started with right ear pain 2 days ago, does have a history of shingles, no vesicular lesions in right TM around the right ear, no facial droop, hints exam negative, CTA negative for any acute pathology, recommended vestibular rehab physical therapy and prescription for meclizine. Counseled the patient on strict return criteria for acute worsening of intractable nausea and vomiting from vertigo or any coordination difficulties or worsening neurological status, appearance of facial droop or lesions. Findings not consistent with [facility], Brain Mass, Central Vertigo. Disposition of Benign Paroxysmal Positional Vertigo. Patient verbalized understanding of the plan and return to ED criteria and engaged in shared decision making. Medical Records Medical records reviewed: Yes I reviewed the patient's medical records. Imaging Data Radiologic Study: Attestation: I personally reviewed and interpreted this imaging study as follows: Imaging: CT Scan Radiologist's impression: Exam: CTA Head Without And With Contrast, Arteriography Exam date and time: 01/25/2024 9:18 PM Age: 38 years old Clinical indication: Stroke-like symptoms; Ataxia and visual disturbance; Additional info: Vertigo; Tinnitus; Diplopia TECHNIQUE: Imaging protocol: Computed tomographic angiography of the head without and with contrast. Exam focused on the arteries. 3D rendering (Not supervised by radiologist): MIP and/or 3D reconstructed images were created by the technologist. Contrast material: OMNI 350; Contrast volume: 70 ml; Contrast route: INTRAVENOUS (IV); Other technique: STROKE PROTOCOL was implemented. COMPARISON: CT NECK W 04/17/2023 8:44 AM FINDINGS: ANTERIOR CIRCULATION: Right internal carotid artery: Intracranial segment is patent with no significant stenosis or occlusion. No aneurysm. Right middle cerebral artery: No occlusion or significant stenosis. No aneurysm. Right anterior cerebral artery: No occlusion or significant stenosis. No aneurysm. Left internal carotid artery: Intracranial segment is patent with no significant stenosis. No aneurysm. Left middle cerebral artery: No occlusion or significant stenosis. No aneurysm. Left anterior cerebral artery: No occlusion or significant stenosis. No aneurysm. POSTERIOR CIRCULATION: Right vertebral artery: No occlusion or significant stenosis. No aneurysm. Left vertebral artery: No occlusion or significant stenosis. No aneurysm. Basilar artery: No occlusion or significant stenosis. No aneurysm. Right posterior cerebral artery: No occlusion or significant stenosis. No aneurysm. Left posterior cerebral artery: origin of the left posterior cerebral artery is a common developmental variant and there is no occlusion or significant stenosis. No aneurysm. HEAD: Brain: No intracranial mass, acute transcortical infarction or recent intracranial hemorrhage is detected. Cerebral ventricles: No midline shift or hydrocephalus. Bones: No acute fracture. Paranasal sinuses: A large retention cyst is seen at the base of the right maxillary sinus. Mastoid air cells: Grossly clear bilaterally. Soft tissues: Unremarkable. IMPRESSION: 1. No large vessel stenosis or occlusion detected involving the major branches of the anterior or posterior intracranial circulation. 2. Unremarkable noncontrast head CT with no evidence of acute infarct, recent intracranial hemorrhage or hydrocephalus. ASSESSMENT: ASPECTS ([place] Stroke Program Early CT Score) is 10. PROCEDURE INFORMATION: Exam: CTA Neck Without And With Contrast Exam date and time: 01/25/2024 9:18 PM Age: 38 years old Clinical indication: Stroke-like symptoms; Ataxia and visual disturbance; Additional info: Vertigo; Tinnitus; Diplopia TECHNIQUE: Imaging protocol: Computed tomographic angiography of the neck without and with contrast. Exam focused on the cervical segments of the vasculature. 3D rendering (Not supervised by radiologist): MIP and/or 3D reconstructed images were created by the technologist. Contrast material: OMNI 350; Contrast volume: 70 ml; Contrast route: INTRAVENOUS (IV); COMPARISON: CT NECK W 04/17/2023 8:44 AM FINDINGS: Right common carotid artery: No stenosis. No dissection or occlusion. Right internal carotid artery: No stenosis of the extracranial segment. No dissection or occlusion. Right external carotid artery: No occlusion or stenosis of the origin. Left common carotid artery: No stenosis. No dissection or occlusion. Left internal carotid artery: No stenosis of the extracranial segment. No dissection or occlusion. Left external carotid artery: No occlusion or stenosis of the origin. Right vertebral artery: No stenosis. No dissection or occlusion. Left vertebral artery: No stenosis. No dissection or occlusion. Soft tissues: Normal. No significant soft tissue swelling. Bones/joints: No acute fracture. IMPRESSION: No evidence of 50% or greater stenosis involving the cervical segments of the right or left internal carotid arteries by NASCET criteria. REFERENCES: NASCET CRITERIA. The degree of stenosis in the cervical segment of the internal carotid artery is based on NASCET criteria. Normal is no stenosis. Mild is less than 50% stenosis. Moderate is 50-69% stenosis. Severe is 70% to 99% stenosis. Total occlusion is no detectable patent lumen. Dictated and Authenticated by: Juan Stanford MD. Lab Data Lab results reviewed: Yes I reviewed the patient's lab results. Labs: Laboratory Tests Range/Units 01/25/24 21:15 WBC (4.4-10.8) 10^3/uL 9.73 RBC (3.93-5.22) 10^6/uL 4.46 Hgb (11.2-15.7) g/dL 14.2 Hct (36.0-46.0) % 40.8 MCV (80-95) fL 92 MCH (27.0-33.0) pg 31.8 MCHC (32.0-36.0) % 34.8 RDW (11.7-14.6) % 12.7 Plt Count (130-400) 10^3/uL 295 MPV (8.0-11.0) fL 9.5 Immature Gran % % 0.3 Neutrophils % % 52.4 Lymphocytes % % 37.3 Monocytes % % 5.7 Eosinophils % % 3.9 Basophils % % 0.4 Nucleated RBC % (0.0-0.3) % 0.0 Absolute Neutrophils (1.2-6.7) 10^3/uL 5.10 Absolute Lymphocytes (1.2-3.4) 10^3/uL 3.63 H Absolute Monocytes (0.1-0.8) 10^3/uL 0.55 Absolute Eosinophils (0.0-0.7) 10^3/uL 0.38 Absolute Basophils (0.0-0.2) 10^3/uL 0.04 Sodium (136-145) mmol/L 143 Potassium (3.5-5.1) mmol/L 3.9 Chloride (98-107) mmol/L 107 Carbon Dioxide (21.0-32.0) mmol/L 28.7 Anion Gap (3-11) mmol/L 7.3 BUN (7-18) mg/dL 8 Creatinine (0.55-1.02) mg/dL 0.7 Est GFR (CKD-EPI 2020) (mL/min/1.73m2) 112.75 Glucose (74-106) mg/dL 107 H Calcium (8.5-10.1) mg/dL 9.2 Total Bilirubin (0.2-1.0) mg/dL 0.23 AST (15-37) U/L 13 L ALT (14-59) U/L 26 Alkaline Phosphatase (46-116) U/L 91 Total Protein (6.4-8.2) g/dL 7.5 Albumin (3.4-5.0) g/dL 4.0 TSH (0.36-3.74) uIU/mL 3.52 Quality:[facility] Health Related Social Needs: No Data to Display PFSH All Active Problems (Updated 01/25/24 @ 21:26 by TOPHER Mora) Benign paroxysmal positional vertigo (Acute) Contusion of right elbow (Acute) Visit for suture removal (Acute) Lipoma (Acute) Tear of medial collateral ligament of left knee (Acute 06/24/22) Internal derangement of left knee (Acute ~06/24/22) History of chronic sinusitis (Acute) History of cellulitis (Acute 06/28/15) History of shingles (Acute) History of smoking (Acute) IUD (intrauterine device) in place (Acute) IUD (intrauterine device) in place (Acute) Other social stressor (Acute) Dysmenorrhea (Chronic) since of her daughter 06/2020. Not a candidate for OCPs. Counseled re; IUD for non-contraceptive benefits. Conductive hearing loss in right ear (Acute) Dysfunction of right eustachian tube (Acute) Back pain (Acute) Hip pain (Acute) Foot drop, left (Acute) Subcutaneous mass of right upper extremity (Acute) BMI 37.0-37.9, adult (Acute) Migraine (Chronic) naproxen PRN Family history of malignant neoplasm of breast (Acute) Unclear if breast cancer was primary. Mother of colon cancer age 58. Family history of malignant neoplasm of colon (Chronic) Mother at 58 years of age. Patient needs early screening colonoscopy. Smoker (Acute) Dental caries (Acute 06/28/15) Arthritis of ankle, left (Acute 10/04/16) Medical History Tinnitus, bilateral Seizure disorder (06/28/15) Posterior tibial tendon dysfunction, left (10/04/16) Chronic maxillary sinusitis (06/28/15) Surgical History History of female sterilization 2020 at time of repeat delivery History of delivery x2 with tubal sterilization 2020. History of sinus surgery History of ankle surgery Family History Mother , at 59 Ovarian cancer Breast cancer Unsure Colon cancer at age 59 Maternal Cousin Colon cancer Father No problems noted. Maternal Grandmother Breast cancer Social History Smoking/Tobacco Use Status: Current every day Tobacco Type: cigarettes Quit status: has quit before Smoking risk assessment performed?: Yes Alcohol Intake: never Drug use: Never Substance use type: does not use Housing: house Current gender identity: female Seatbelt use: always Do you feel safe at home: Yes Do you feel safe in your relationship?: Yes Female Reproductive History Menstrual control method: permanent sterilization (At time of delivery 2020.) History History 2 Para 2 Hx # Term Pregnancies 2 Multiple births 0 Hx # Pregnancies 0 Ectopic pregnancies 0 AB induced 0 Hx Number of Living Children 1 AB spontaneous 1 Past Pregnancies Del. Date GA/Weeks # Preg Succ Route Wgt Sex Labor Lgth Anesthesia Location Prov Compl 10/16/12 38 No 3770.487 g Female 24 hours regional [facility] 06/07/20 39 No Yes 3801 g Female Pt elected to deliver at [facility] [place] Delivery Date: 10/16/12 Last Updated by: Nirmala Mishra CNM Pitocin augmentation at [facility] [place], prodromal labor and evaluated at [facility] and patient chose to go to [facility] for care. Delivery Date: 06/07/20 Last Updated by: Luz Martínez MD Elective repeat LTCS with tubal sterilization. Bety.
[2024-01-25] MEDS: Omnipaque 350 MG/ML 100 ML BTL IJ (21:17)
[2024-01-25] MEDS: Normal Saline - Diluent 50 ML VIAL IJ (21:17)
[2024-01-25 21:22] LABS: Abs Immature Grans 0.03 10^3/uL (0.0-0.06); Absolute Basophil Count 0.04 10^3/uL (0.0-0.2); Absolute Eosinophil Count 0.38 10^3/uL (0.0-0.7); Absolute Lymphocyte Count 3.63 10^3/uL (1.2-3.4); Absolute Monocyte Count 0.55 10^3/uL (0.1-0.8); Basophils % 0.4 %; Eosinophils % 3.9 %; HCT 40.8 % (36.0-46.0); HGB 14.2 g/dL (11.2-15.7); Immature Grans % 0.3 %; Lymphocytes % 37.3 %; MCH 31.8 pg (27.0-33.0); MCHC 34.8 % (32.0-36.0); MCV 92 fL (80-95); MPV 9.5 fL (8.0-11.0); Monocytes % 5.7 %; Neutrophils % 52.4 %; Platelet Count 295 10^3/uL (130-400); RBC 4.46 10^6/uL (3.93-5.22); RDW 12.7 % (11.7-14.6); WBC 9.73 10^3/uL (4.4-10.8)
[2024-01-25] MEDS: Meclizine 25 MG TAB PO ×2 (21:41→21:52)
--- NOTE | 2024-01-25 21:44 | DI.VRAD_ITS ---
Addendum created by Juan Stanford MD on 01/25/2024 9:45:33 PM EST: THIS REPORT CONTAINS FINDINGS THAT MAY BE CRITICAL TO PATIENT CARE. The findings were verbally communicated via telephone conference with JOSE G BAÑUELOS at 9:45 PM EST on 01/25/2024. The findings were acknowledged and understood. Initial report created on 01/25/2024 9:43:35 PM EST: PROCEDURE INFORMATION: Exam: CTA Head Without And With Contrast, Arteriography Exam date and time: 01/25/2024 9:18 PM Age: 38 years old Clinical indication: Stroke-like symptoms; Ataxia and visual disturbance; Additional info: Vertigo; Tinnitus; Diplopia TECHNIQUE: Imaging protocol: Computed tomographic angiography of the head without and with contrast. Exam focused on the arteries. 3D rendering (Not supervised by radiologist): MIP and/or 3D reconstructed images were created by the technologist. Contrast material: OMNI 350; Contrast volume: 70 ml; Contrast route: INTRAVENOUS (IV); Other technique: STROKE PROTOCOL was implemented. COMPARISON: CT NECK W 04/17/2023 8:44 AM FINDINGS: ANTERIOR CIRCULATION: Right internal carotid artery: Intracranial segment is patent with no significant stenosis or occlusion. No aneurysm. Right middle cerebral artery: No occlusion or significant stenosis. No aneurysm. Right anterior cerebral artery: No occlusion or significant stenosis. No aneurysm. Left internal carotid artery: Intracranial segment is patent with no significant stenosis. No aneurysm. Left middle cerebral artery: No occlusion or significant stenosis. No aneurysm. Left anterior cerebral artery: No occlusion or significant stenosis. No aneurysm. POSTERIOR CIRCULATION: Right vertebral artery: No occlusion or significant stenosis. No aneurysm. Left vertebral artery: No occlusion or significant stenosis. No aneurysm. Basilar artery: No occlusion or significant stenosis. No aneurysm. Right posterior cerebral artery: No occlusion or significant stenosis. No aneurysm. Left posterior cerebral artery: origin of the left posterior cerebral artery is a common developmental variant and there is no occlusion or significant stenosis. No aneurysm. HEAD: Brain: No intracranial mass, acute transcortical infarction or recent intracranial hemorrhage is detected. Cerebral ventricles: No midline shift or hydrocephalus. Bones: No acute fracture. Paranasal sinuses: A large retention cyst is seen at the base of the right maxillary sinus. Mastoid air cells: Grossly clear bilaterally. Soft tissues: Unremarkable. IMPRESSION: 1. No large vessel stenosis or occlusion detected involving the major branches of the anterior or posterior intracranial circulation. 2. Unremarkable noncontrast head CT with no evidence of acute infarct, recent intracranial hemorrhage or hydrocephalus. ASSESSMENT: ASPECTS ([place] Stroke Program Early CT Score) is 10. PROCEDURE INFORMATION: Exam: CTA Neck Without And With Contrast Exam date and time: 01/25/2024 9:18 PM Age: 38 years old Clinical indication: Stroke-like symptoms; Ataxia and visual disturbance; Additional info: Vertigo; Tinnitus; Diplopia TECHNIQUE: Imaging protocol: Computed tomographic angiography of the neck without and with contrast. Exam focused on the cervical segments of the vasculature. 3D rendering (Not supervised by radiologist): MIP and/or 3D reconstructed images were created by the technologist. Contrast material: OMNI 350; Contrast volume: 70 ml; Contrast route: INTRAVENOUS (IV); COMPARISON: CT NECK W 04/17/2023 8:44 AM FINDINGS: Right common carotid artery: No stenosis. No dissection or occlusion. Right internal carotid artery: No stenosis of the extracranial segment. No dissection or occlusion. Right external carotid artery: No occlusion or stenosis of the origin. Left common carotid artery: No stenosis. No dissection or occlusion. Left internal carotid artery: No stenosis of the extracranial segment. No dissection or occlusion. Left external carotid artery: No occlusion or stenosis of the origin. Right vertebral artery: No stenosis. No dissection or occlusion. Left vertebral artery: No stenosis. No dissection or occlusion. Soft tissues: Normal. No significant soft tissue swelling. Bones/joints: No acute fracture. IMPRESSION: No evidence of 50% or greater stenosis involving the cervical segments of the right or left internal carotid arteries by NASCET criteria. REFERENCES: NASCET CRITERIA. The degree of stenosis in the cervical segment of the internal carotid artery is based on NASCET criteria. Normal is no stenosis. Mild is less than 50% stenosis. Moderate is 50-69% stenosis. Severe is 70% to 99% stenosis. Total occlusion is no detectable patent lumen. Dictated and Authenticated by: Juan Stanford MD. Ordering:AMANDA Patel MD
[2024-01-25 21:45] LABS: ALT 26 U/L (14-59); AST 13 U/L (15-37); Alkaline Phosphatase 91 U/L (46-116); Anion Gap 7.3 mmol/L (3-11); BUN 8 mg/dL (7-18); Bilirubin, Total 0.23 mg/dL (0.2-1.0); CO2 28.7 mmol/L (21.0-32.0); CREATININE 0.7 mg/dL (0.55-1.02); Calcium 9.2 mg/dL (8.5-10.1); Chloride 107 mmol/L (98-107); Estimated GFR 112.75 (mL/min/1.73m2); Glucose 107 mg/dL (74-106); Potassium 3.9 mmol/L (3.5-5.1); Sodium 143 mmol/L (136-145); TSH (W/Ref FT4) 3.52 uIU/mL (0.36-3.74); Total Protein 7.5 g/dL (6.4-8.2)
[2024-01-25 21:49] VITALS: BP 111/79; PULSE 73; RESP 16; O2SAT 97
[2024-01-25] MEDS: Ondansetron O.D.T. 4 MG TABEF, 3 TABS/BTL PO (21:52)
[2024-01-25 21:55] VITALS: BP 111/79; PULSE 73; RESP 16; O2SAT 97
== END 2024-01-25 21:56 | disposition home or self-care (01) ==
PROVIDERS: Emergency Provider Physician Assistant
DX: H81.10 Benign paroxysmal vertigo, unspecified ear (principal); F17.210 Nicotine dependence, cigarettes, uncomplicated
CPT/HCPCS: 36415; 70496; 70498; 80053; 99285; 84443; 85025; 99284; J3490

== ENCOUNTER 2024-04-02 12:26 | Outpatient (REF) | payer MEDICARE, MEDICAID, SELFPAY ==
[2024-04-02 15:39] LABS: Abs Immature Grans 0.01 10^3/uL (0.0-0.06); Absolute Basophil Count 0.04 10^3/uL (0.0-0.2); Absolute Eosinophil Count 0.12 10^3/uL (0.0-0.7); Absolute Lymphocyte Count 3.03 10^3/uL (1.2-3.4); Absolute Monocyte Count 0.46 10^3/uL (0.1-0.8); Absolute Neutrophil Count 4.32 10^3/uL (1.2-6.7); Basophils % 0.5 %; Eosinophils % 1.5 %; HCT 41.8 % (36.0-46.0); Immature Grans % 0.1 %; MCH 31.8 pg (27.0-33.0); MCHC 33.5 % (32.0-36.0); MCV 95 fL (80-95); MPV 10.1 fL (8.0-11.0); Monocytes % 5.8 %; Neutrophils % 54.1 %; Platelet Count 303 10^3/uL (130-400); RDW 12.3 % (11.7-14.6); RDW-SD 43.4 fL; WBC 7.98 10^3/uL (4.4-10.8)
[2024-04-02 16:25] LABS: ALT 29 U/L (14-59); AST 17 U/L (15-37); Alkaline Phosphatase 101 U/L (46-116); Anion Gap 8.7 mmol/L (3-11); BUN 6 mg/dL (7-18); Bilirubin, Total 0.22 mg/dL (0.2-1.0); CO2 27.3 mmol/L (21.0-32.0); CREATININE 0.7 mg/dL (0.55-1.02); Calcium 9.4 mg/dL (8.5-10.1); Chloride 107 mmol/L (98-107); Estimated GFR 112.75 (mL/min/1.73m2); Glucose 91 mg/dL (74-106); Hemoglobin A1C 5.4 % (<5.7); Potassium 4.3 mmol/L (3.5-5.1); Sodium 143 mmol/L (136-145); TSH 1.68 uIU/mL (0.36-3.74); Vitamin D 25 Total 29.1 ng/mL (30-100)
== END 2024-04-02 12:27 | disposition home or self-care (01) ==
LOC: NCHCN 12:26
PROVIDERS: Visit Provider Nurse Practitioner Family
DX: Z68.41 Body mass index [BMI] 40.0-44.9, adult (principal); R53.83 Other fatigue; E66.9 Obesity, unspecified
CPT/HCPCS: 80053; 82306; 83036; 84439; 84443; 85025

== ENCOUNTER 2024-04-08 00:31 | Outpatient (CLI) | payer MEDICARE, MEDICAID, SELFPAY ==
--- NOTE | 2024-04-08 | DI.US_ITS ---
Exam(s) US SOFT TISSUE EXTREMITY EXAM: US SOFT TISSUE EXTREMITY CLINICAL HISTORY: Pain in rt elbow, M25.521, medial rt elbow ? cyst vs fluid vs effusion. TECHNIQUE: Ultrasound was performed using standard protocol. COMPARISON: No exams were available for comparison FINDINGS: Sonographic assessment utilizing grayscale and color Doppler imaging was performed and targeted to th e area of clinical concern. There is a small amount of fluid adjacent to the right medial epicondyle. There is a small amount of fluid around an adjacent tendon which could indicate tenosynovitis. IMPRESSION: There is a small amount of fluid adjacent to the right medial epicondyle. There is a small amount of fluid around an adjacent tendon which could indicate tenosynovitis. DATA REPOSITORY:
--- NOTE | 2024-04-08 | DI.RAD_ITS ---
Exam(s) XR ELBOW RT COMPLETE EXAM: XR ELBOW RT COMPLETE CLINICAL HISTORY: Pain in rt elbow, M25.521. TECHNIQUE: 2D digital imaging was performed. Three views. COMPARISON: CR,XR XR ELBOW RT COMPLETE from 01/07/2024 FINDINGS: BONES: No acute fracture is present. No bony destructive lesion is seen. JOINTS: The elbow is normally aligned. No joint effusion is seen. SOFT TISSUE: Normal. IMPRESSION: Unremarkable radiographs of the right elbow. DATA REPOSITORY: RADIATION DOSE DELIVERED:
== END 2024-04-08 00:51 ==
LOC: DI 00:31
PROVIDERS: Visit Provider Nurse Practitioner Family
DX: M25.521 Pain in right elbow (principal)
CPT/HCPCS: 76881; 73080

== ENCOUNTER 2024-08-11 13:24 | Emergency (ER) | payer MEDICARE, MEDICAID, SELFPAY ==
[2024-08-11 13:28] VITALS: BP 125/86; PULSE 87; RESP 20; TEMP 37.1; O2SAT 98
--- NOTE | 2024-08-11 13:45 | DI.RAD_ITS ---
Exam(s) XR HAND RT COMPLETE EXAM: XR HAND RT COMPLETE CLINICAL HISTORY: hand pain. TECHNIQUE: 2D digital imaging was performed of the right hand. Three images were obtained. AP, late ral and oblique views were obtained. COMPARISON: CR RIGHT FOREARM from 08/01/2017 CR RIGHT WRIST COMPLETE from 08/01/2017 FINDINGS: BONES: No acute fracture is present. No bony destructive lesion is seen. JOINTS: No dislocation present. SOFT TISSUE: There is soft tissue swelling of the hand. No radiopaque foreign body or soft tissue ga s is seen. IMPRESSION: 1. No acute fracture or dislocation. 2. Generalized soft tissue swelling of the hand. DATA REPOSITORY: RADIATION DOSE DELIVERED:
--- NOTE | 2024-08-11 15:45 | W.ED.GENAD ---
Discharge Plan Disposition Patient Disposition: Home Discharge Details Clinical Impression: Cellulitis of right hand Primary Care Provider: None,None ED Provider: Harinder Murphy [place] Meds and New Rx's Prescriptions: New cephalexin 500 mg capsule 500 mg PO QID 5 Days Qty: 20 0RF Continued multivitamin [Daily Multi-Vitamin] Tablet 1 tab PO DAILY Kyleena 17.5 mcg/24 hrs (5 yrs) 19.5 mg intrauterine device 1 device intrauterine ONCE Qty: 1 0RF Rx Instructions: as a single dose lamotrigine 100 mg tablet 100 mg PO BID Patient Comments: TAKE ONE TABLET BY MOUTH TWICE A DAY Discharge Instructions Additional Instructions: You are seen in the emergency department for your hand swelling. You may have an early sign of an infection for which you are receiving antibiotics that you should take as directed. Please return to the emergency burn as we discussed if you develop worsening swelling worsening pain or any fevers. Otherwise please follow-up with your primary care provider as needed next week. Stand Alone Forms: Work Release Discharge Data Discharge Date/Time-TO BE ENTERED AT DEPARTURE: 08/11/24 16:22 HPI General Date/Time Provider Initiated Documentation: 08/11/24 13:31. HPI Narrative: MDM Patient overall very well-appearing normothermic and not tachycardic 38-year-old female right hand warmth swelling most consistent with cellulitis for which patient will receive oral antibiotics. I considered sepsis however patient had quite reassuring vitals and was quite well-appearing so I did not treat empirically with broad-spectrum antibiotics. I suspect that her subjective numbness on the ulnar side of the ring and little fingers are secondary to transient neuro no pain out of proportion to suggest necrotizing soft tissue infection. No history of IV drug use nor recent PICC line so my suspicion is low for upper extremity DVT so I do not feel the patient required an angiogram. No history of gout to suggest gouty arthritis. No fusiform swelling of fingers to suggest increased risk for flexor tenosynovitis surgery nor broad-spectrum antibiotics. No fluctuance to suggest abscess send no indication for I&D. No rash to suggest zoster. Patient and I discussed that she should return to the emergency department if she developed increased pain increased swelling fevers or chills or any streaking signs of infection. Cover patient with cephalexin staph and strep. Patient understood her return indications and was discharged with an empiric trial of infection. HPI The patient presents for evaluation of right hand swelling. She reports a sudden onset of swelling in her right hand, which has progressively worsened. She is uncertain about any specific trauma to the hand but recalls engaging in activities such as lawn mowing and furniture moving yesterday. She is right-handed and has no prior history of similar incidents. She reports no systemic symptoms such as fever, chest pain, or respiratory distress. She also reports no history of gout or insect bites. Additionally, she mentions persistent numbness in two of her fingers. She has not taken any analgesics today. She has a past medical history of facial cellulitis. No history of any recent PICC lines. No history of IV drug use. Exam General: Well-appearing in no acute distress speaking in complete sentences. Head: Normocephalic, atraumatic. Eye: Extraocular eye movements intact. No conjunctival injection. No scleral icterus. Ear, nose, mouth, throat: Grossly normal inspection. Normal voice, handling secretions normally. Neck: Trachea midline. Cardiovascular: Well-perfused distal extremities. Respiratory: Nonlabored respiration. Gastrointestinal: Nondistended abdomen. Musculoskeletal: Right hand is warm well-perfused. On the dorsal surface of the right hand there is mild swelling tenderness warmth. Mild erythema. No fluctuance. Motor function intact in the hand across the radial, median, and ulnar nerve distributions. Cap refill less than 2 seconds in the fingertips. 2+ right radial pulse. Mild decrease sensation over the ulnar aspect of the right ring and little fingers. Skin: Normal for age and race, grossly normal temperature and turgor. No acute rash. Neurologic: Alert and appropriate, no apparent acute deficits. Psychiatric: Mood and manner are appropriate. Grooming and personal hygiene are appropriate. Related Data Home Medications ?Medication ?Instructions ?Recorded ?Confirmed lamotrigine 100 mg tablet 100 mg PO BID 08/27/19 08/11/24 multivitamin (Daily Multi-Vitamin 1 tab PO DAILY 08/18/21 08/11/24 tablet) levonorgestrel 17.5 mcg/24 hr (up 1 device intrauterine ONCE #1 ea 09/25/21 08/11/24 to 5 yrs) 19.5mg intrauterine device (Kyleena) cephalexin 500 mg capsule 500 mg PO QID 5 days #20 caps 08/11/24 Previous Rx's ?Medication ?Instructions ?Recorded levonorgestrel 17.5 mcg/24 hr (up 1 device intrauterine ONCE #1 ea 09/25/21 to 5 yrs) 19.5mg intrauterine device (Kyleena) cephalexin 500 mg capsule 500 mg PO QID 5 days #20 caps 08/11/24 Allergies Allergy/AdvReac Type Severity Reaction Status Date / Time Antihistamines - Alkylamine Allergy Severe Seizure Verified 08/11/24 13:31 enoxaparin (From Lovenox) Allergy Skin Rash Verified 08/11/24 13:31 General Stated Complaint: Orthopedic ELZA: 4 Course Vital Signs Vital signs: Vital Signs Temperature 37.1 C 08/11/24 13:28 Pulse 87 08/11/24 13:28 Respiratory Rate 20 08/11/24 13:28 Blood Pressure 125/86 08/11/24 13:28 Pulse Oximetry 98 08/11/24 13:28 Temperature 37.1 C 08/11/24 13:28 Temperature Source Tympanic 08/11/24 13:28 Pulse 87 08/11/24 13:28 Respiratory Rate 20 08/11/24 13:28 Blood Pressure 125/86 08/11/24 13:28 Blood Pressure Position Sitting 08/11/24 13:28 Pulse Oximetry 98 08/11/24 13:28 Oxygen Delivery Method Room Air 08/11/24 13:28 Oxygen Flow Rate 0 08/11/24 13:28 Medical Decision Making Quality:SDOH Health Related Social Needs: No Data to Display PFSH All Active Problems (Updated 08/11/24 @ 15:46 by Harinder Murphy MD) Cellulitis of right hand (Acute) Visit for suture removal (Acute) Lipoma (Acute) Tear of medial collateral ligament of left knee (Acute 06/24/22) Internal derangement of left knee (Acute ~06/24/22) History of chronic sinusitis (Acute) History of cellulitis (Acute 06/28/15) History of shingles (Acute) History of smoking (Acute) IUD (intrauterine device) in place (Acute) IUD (intrauterine device) in place (Acute) Other social stressor (Acute) Dysmenorrhea (Chronic) since of her daughter 06/2020. Not a candidate for OCPs. Counseled re; IUD for non-contraceptive benefits. Conductive hearing loss in right ear (Acute) Dysfunction of right eustachian tube (Acute) Back pain (Acute) Hip pain (Acute) Foot drop, left (Acute) Subcutaneous mass of right upper extremity (Acute) BMI 37.0-37.9, adult (Acute) Migraine (Chronic) naproxen PRN Family history of malignant neoplasm of breast (Acute) Unclear if breast cancer was primary. Mother of colon cancer age 58. Family history of malignant neoplasm of colon (Chronic) Mother at 58 years of age. Patient needs early screening colonoscopy. Smoker (Acute) Dental caries (Acute 06/28/15) Arthritis of ankle, left (Acute 10/04/16) Medical History Tinnitus, bilateral Seizure disorder (06/28/15) Posterior tibial tendon dysfunction, left (10/04/16) Chronic maxillary sinusitis (06/28/15) Surgical History History of female sterilization 2020 at time of repeat delivery History of delivery x2 with tubal sterilization 2020. History of sinus surgery History of ankle surgery Family History Mother , at 59 Ovarian cancer Breast cancer Unsure Colon cancer at age 59 Maternal Cousin Colon cancer Father No problems noted. Maternal Grandmother Breast cancer Social History Smoking/Tobacco Use Status: Current every day Tobacco Type: cigarettes Quit status: has quit before Smoking risk assessment performed?: Yes Alcohol Intake: never Drug use: Never Substance use type: does not use Housing: house Current gender identity: female Seatbelt use: always Do you feel safe at home: Yes Do you feel safe in your relationship?: Yes Female Reproductive History Menstrual control method: permanent sterilization (At time of delivery 2020.) History History 2 Para 2 Hx # Term Pregnancies 2 Multiple births 0 Hx # Pregnancies 0 Ectopic pregnancies 0 AB induced 0 Hx Number of Living Children 1 AB spontaneous 1 Past Pregnancies Del. Date GA/Weeks # Preg Succ Route Wgt Sex Labor Lgth Anesthesia Location [facility] Compl 10/16/12 38 No 3770.487 g Female 24 hours [facility] 06/07/20 39 No Yes 3801 g Female Pt elected to deliver at [facility] [place] Delivery Date: 10/16/12 Last Updated by: Nirmala Mishra CNM Pitocin augmentation at [facility], prodromal labor and evaluated at [facility] and patient chose to go to [facility] for care. Delivery Date: 06/07/20 Last Updated by: Luz Martínez MD Elective repeat LTCS with tubal sterilization. Bety.
[2024-08-11 16:19] VITALS: BP 125/86; PULSE 87; RESP 20; TEMP 37.1; O2SAT 98
== END 2024-08-11 16:22 | disposition home or self-care (01) ==
PROVIDERS: Emergency Provider Emergency Medicine
DX: R22.31 Localized swelling, mass and lump, right upper limb (principal); R20.0 Anesthesia of skin; F17.210 Nicotine dependence, cigarettes, uncomplicated
CPT/HCPCS: 81025; 99284; 73130

== ENCOUNTER 2024-08-12 09:51 | Emergency (ER) | payer MEDICARE, MEDICAID, SELFPAY ==
[2024-08-12 09:56] VITALS: BP 130/87; PULSE 101; RESP 18; TEMP 36.6; O2SAT 98
[2024-08-12 10:06] VITALS: BP 130/87; PULSE 101; RESP 18; TEMP 36.6; O2SAT 98
--- NOTE | 2024-08-12 10:15 | DI.RAD_ITS ---
Exam(s) XR CHEST 2V PA LATERAL EXAM: XR CHEST 2V PA LATERAL CLINICAL HISTORY: right arm swelling, ?rib abnormalities. TECHNIQUE: 2D digital imaging was performed. COMPARISON: CR XR CHEST 2V PA LATERAL from 11/21/2023 FINDINGS: 2 views: Heart size is normal. The mediastinum is not widened. Lungs are clear. No infiltrates nor pleural effusions. IMPRESSION: No acute pulmonary findings. DATA REPOSITORY: RADIATION DOSE DELIVERED:
--- NOTE | 2024-08-12 10:15 | DI.US_ITS ---
Exam(s) US UPPER EXTREMITY VENOUS RT EXAM: US UPPER EXTREMITY VENOUS RT CLINICAL HISTORY: right hand swelling TECHNIQUE: GRAYSCALE, COLOR, DOPPLER IMAGING OF THE VENOUS SYSTEM OF THE UPPER EXTREMITY-RIGHT COMPARISON: US US SOFT TISSUE EXTREMITY from 04/08/2024 FINDINGS: Basilic vein: Patent. Normal color-flow and normal compression and augmentation properties. Brachial vein(s):Patent. Normal color flow. Normal compression and augmentation properties. Cephalic vein:Patent. Normal color flow. Normal compression and augmentation properties. Axillary vein: Patent. Normal color flow. Normal compression and augmentation properties. Visualized subclavian vein: Patent. No obvious intraluminal thrombus. IMPRESSION: 1. No evidence of venous thrombosis in the right upper extremity. 2. DATA REPOSITORY:
--- NOTE | 2024-08-12 10:19 | W.ED.GENAD ---
Discharge Plan Disposition Patient Disposition: Home Condition: Stable Discharge Details Clinical Impression: Pain and swelling of right forearm Primary Care Provider: None,None ED Provider: Hilario Lara Home Meds and New Rx's Prescriptions: New prednisone 20 mg tablet 60 mg PO DAILY 4 Days Qty: 12 0RF Continued multivitamin [Daily Multi-Vitamin] Tablet 1 tab PO DAILY Kyleena 17.5 mcg/24 hrs (5 yrs) 19.5 mg intrauterine device 1 device intrauterine ONCE Qty: 1 0RF Rx Instructions: as a single dose lamotrigine 100 mg tablet 100 mg PO BID Patient Comments: TAKE ONE TABLET BY MOUTH TWICE A DAY cephalexin 500 mg capsule 500 mg PO QID 5 Days Qty: 20 0RF Discharge Instructions Additional Instructions: Your lab work, x-ray and ultrasound did not show any concerning findings at this time. Take the antibiotic and the prednisone as prescribed. If not improving within 1 week follow-up with your primary care provider or express care. If you feel significantly more ill have severe worsening pain or high fevers return to the emergency department for reevaluation. HPI General Mode of arrival: ambulatory. Date/Time Provider Initiated Documentation: 08/12/24 09:52. Limitations to Documentation: no limitations. Information obtained by: patient. History of Present Illness 38 year old F presents to the emergency department with the chief complaint of right arm swelling, described as moderate, Patient started experiencing this day(s) (2) and it has been constant. No relieving factors improve symptom(s), No exacerbating factors reported . Patient notes no other symptoms.. Patient did receive the following treatments prior to arrival, none Related Data Home Medications ?Medication ?Instructions ?Recorded ?Confirmed lamotrigine 100 mg tablet 100 mg PO BID 08/27/19 08/12/24 multivitamin (Daily Multi-Vitamin 1 tab PO DAILY 08/18/21 08/12/24 tablet) levonorgestrel 17.5 mcg/24 hr (up 1 device intrauterine ONCE #1 ea 09/25/21 08/12/24 to 5 yrs) 19.5mg intrauterine device (Kyleena) cephalexin 500 mg capsule 500 mg PO QID 5 days #20 caps 08/11/24 08/12/24 prednisone 20 mg tablet 60 mg (3 x 20 mg) PO DAILY 4 days 08/12/24 #12 tabs Previous Rx's ?Medication ?Instructions ?Recorded levonorgestrel 17.5 mcg/24 hr (up 1 device intrauterine ONCE #1 ea 09/25/21 to 5 yrs) 19.5mg intrauterine device (Kyleena) cephalexin 500 mg capsule 500 mg PO QID 5 days #20 caps 08/11/24 prednisone 20 mg tablet 60 mg (3 x 20 mg) PO DAILY 4 days 08/12/24 #12 tabs Allergies Allergy/AdvReac Type Severity Reaction Status Date / Time Antihistamines - Alkylamine Allergy Severe Seizure Verified 08/11/24 13:31 enoxaparin (From Lovenox) Allergy Skin Rash Verified 08/11/24 13:31 General Stated Complaint: Cellulitis ELZA: 3 Review of Systems All systems reviewed & are unremarkable except as noted in HPI and below Constitutional Constitutional: Denies chills, Denies fever(s) and Denies weakness Cardiovascular Cardiovascular: Denies chest pain and Denies dyspnea Respiratory Respiratory: Denies cough and Denies dyspnea Gastrointestinal Gastrointestinal: Denies abdominal pain, Denies nausea and Denies vomiting Musculoskeletal Musculoskeletal: Reports numbness and Reports tingling Neurologic Neurologic: Reports numbness, Reports tingling and Denies weakness Psychiatric Psychiatric: Denies depression Exam Const General: no acute distress Orientation: alert HENCT Head: normal to inspection Ears: external ears normal General nose exam: external nose normal Mouth: moist mucous membranes Eyes General: appearance normal, both eyes and all related structures Neck Neck: normal visual inspection Resp Effort & Inspection: normal respiratory effort and able to speak in complete sentences Cardio Rate: regular rate Skin General skin exam: no rashes or lesions noted Neuro General: patient alert and patient oriented x3 Extrem General: full ROM and capillary refill normal Psych Mental Status: mental status grossly normal Course Vital Signs Vital signs: Vital Signs Temperature 36.6 C 08/12/24 09:56 Pulse 101 H 08/12/24 09:56 Respiratory Rate 18 08/12/24 09:56 Blood Pressure 130/87 08/12/24 09:56 Pulse Oximetry 98 08/12/24 09:56 Temperature 36.6 C 08/12/24 10:06 Pulse 101 H 08/12/24 10:06 Respiratory Rate 18 08/12/24 10:06 Blood Pressure 130/87 08/12/24 10:06 Blood Pressure Position Supine 08/12/24 10:06 Pulse Oximetry 98 08/12/24 10:06 Oxygen Delivery Method Room Air 08/12/24 10:06 Oxygen Flow Rate 0 08/12/24 10:06 Pain Level 7 08/12/24 10:06 Medical Decision Making 38-year-old female comes in with 2 days of right arm swelling. She was seen yesterday and had some redness of the posterior right hand and started on cephalexin. She says the redness is improved but the swelling is gone up her arm. She also has some tingling in all of her fingers. She denies any falls or recent trauma, no fevers or chills, denies any IV drug use. On exam her right posterior hand is swollen without erythema or warmth. There is also some mild swelling of the distal third forearm. She has intact cap refill and palpable radial and ulnar pulses. Concern for possible upper extremity DVT versus thoracic outlet syndrome. Seems like her cellulitis she had yesterday is improved. I will check CBC and inflammatory markers along with a CMP and coagulation studies and obtain duplex ultrasound and chest x-ray to evaluate for possible rib abnormalities causing thoracic outlet syndrome Labs benign, negative inflammatory markers and the leukocytosis. Ultrasound shows no DVT. X-ray of the chest shows no abnormalities. Patient is stable. And reassuring workup I feel she is stable for discharge. She has intact 2+ radial and ulnar pulses. Given negative inflammatory markers question if she may have a component of arthritis so we will provide short course of prednisone as well. She will follow-up with express care if not improving and return precautions given Differential Diagnosis Differential Diagnosis: dvt, thoracic outlet syndrome Quality:SDOH Health Related Social Needs: No Data to Display PFSH All Active Problems (Updated 08/12/24 @ 11:23 by Hilario Lara MD) Pain and swelling of right forearm (Acute) Cellulitis of right hand (Acute) Visit for suture removal (Acute) Lipoma (Acute) Tear of medial collateral ligament of left knee (Acute 06/24/22) Internal derangement of left knee (Acute ~06/24/22) History of chronic sinusitis (Acute) History of cellulitis (Acute 06/28/15) History of shingles (Acute) History of smoking (Acute) IUD (intrauterine device) in place (Acute) IUD (intrauterine device) in place (Acute) Other social stressor (Acute) Dysmenorrhea (Chronic) since of her daughter 06/2020. Not a candidate for OCPs. Counseled re; IUD for non-contraceptive benefits. Conductive hearing loss in right ear (Acute) Dysfunction of right eustachian tube (Acute) Back pain (Acute) Hip pain (Acute) Foot drop, left (Acute) Subcutaneous mass of right upper extremity (Acute) BMI 37.0-37.9, adult (Acute) Migraine (Chronic) naproxen PRN Family history of malignant neoplasm of breast (Acute) Unclear if breast cancer was primary. Mother of colon cancer age 58. Family history of malignant neoplasm of colon (Chronic) Mother at 58 years of age. Patient needs early screening colonoscopy. Smoker (Acute) Dental caries (Acute 06/28/15) Arthritis of ankle, left (Acute 10/04/16) Medical History Tinnitus, bilateral Seizure disorder (06/28/15) Posterior tibial tendon dysfunction, left (10/04/16) Chronic maxillary sinusitis (06/28/15) Surgical History History of female sterilization 2020 at time of repeat delivery History of delivery x2 with tubal sterilization 2020. History of sinus surgery History of ankle surgery Family History Mother , at 59 Ovarian cancer Breast cancer Unsure Colon cancer at age 59 Maternal Cousin Colon cancer Father No problems noted. Maternal Grandmother Breast cancer Social History Smoking/Tobacco Use Status: Current every day Tobacco Type: cigarettes Quit status: has quit before Smoking risk assessment performed?: Yes Alcohol Intake: never Drug use: Never Substance use type: does not use Housing: house Current gender identity: female Seatbelt use: always Do you feel safe at home: Yes Do you feel safe in your relationship?: Yes Female Reproductive History Menstrual control method: permanent sterilization (At time of delivery 2020.) History History 2 Para 2 Hx # Term Pregnancies 2 Multiple births 0 Hx # Pregnancies 0 Ectopic pregnancies 0 AB induced 0 Hx Number of Living Children 1 AB spontaneous 1 Past Pregnancies Del. Date GA/Weeks # Preg Succ Route Wgt Sex Labor Lgth Anesthesia Location Prov [facility] 10/16/12 38 No 3770.487 g [place] [facility] [place]07[place]20 39 No Yes 3801 g Female Pt [place] [facility] [place] Date: 10/16/12 Last Updated by: Nirmala Mishra CNM Pitocin [place] [facility], prodromal labor and evaluated at [facility] and patient chose to go [place] [facility] [place]. Delivery Date: 06/07/20 Last Updated by: Luz Martínez MD Elective repeat LTCS with tubal sterilization. Bety.
[2024-08-12 10:32] VITALS: PULSE 94; RESP 16; O2SAT 97
[2024-08-12 10:37] LABS: Abs Immature Grans 0.02 10^3/uL (0.0-0.06); Absolute Basophil Count 0.02 10^3/uL (0.0-0.2); Absolute Eosinophil Count 0.11 10^3/uL (0.0-0.7); Absolute Lymphocyte Count 2.46 10^3/uL (1.2-3.4); Absolute Monocyte Count 0.43 10^3/uL (0.1-0.8); Absolute Neutrophil Count 5.11 10^3/uL (1.2-6.7); Basophils % 0.2 %; ESR 3 mm/hr (0-20); Eosinophils % 1.3 %; HCT 43.2 % (36.0-46.0); HGB 14.6 g/dL (11.2-15.7); Immature Grans % 0.2 %; Lymphocytes % 30.2 %; MCH 31.3 pg (27.0-33.0); MCHC 33.8 % (32.0-36.0); MCV 93 fL (80-95); MPV 9.7 fL (8.0-11.0); Monocytes % 5.3 %; Neutrophils % 62.8 %; Platelet Count 296 10^3/uL (130-400); RBC 4.67 10^6/uL (3.93-5.22); RDW 12.3 % (11.7-14.6); RDW-SD 41.6 fL; WBC 8.15 10^3/uL (4.4-10.8)
[2024-08-12 10:51] LABS: PTT Activated 25.1 sec (20.6-30.2); Prothrombin Time 9.7 sec (9.1-11.1)
[2024-08-12 10:55] LABS: ALT 29 U/L (14-59); AST 19 U/L (15-37); Albumin 4.2 g/dL (3.4-5.0); Alkaline Phosphatase 97 U/L (46-116); Anion Gap 8.8 mmol/L (3-11); BUN 10 mg/dL (7-18); Bilirubin, Total 0.4 mg/dL (0.2-1.0); CO2 28.2 mmol/L (21.0-32.0); CREATININE 0.8 mg/dL (0.55-1.02); Chloride 105 mmol/L (98-107); Estimated GFR 96.06 (mL/min/1.73m2); Glucose 105 mg/dL (74-106); Magnesium 1.9 mg/dL (1.8-2.4); Potassium 4.1 mmol/L (3.5-5.1); Sodium 142 mmol/L (136-145); Total Protein 7.8 g/dL (6.4-8.2)
[2024-08-12 10:56] LABS: C-Reactive Protein < 0.50 mg/dL (<or=0.5)
[2024-08-12] MEDS: predniSONE 20 MG TAB 60 MG PO (11:22)
== END 2024-08-12 11:34 | disposition home or self-care (01) ==
PROVIDERS: Emergency Provider Emergency Medicine
DX: R22.31 Localized swelling, mass and lump, right upper limb (principal); F17.210 Nicotine dependence, cigarettes, uncomplicated
CPT/HCPCS: 80053; 85652; 99284; 71046; 83735; 85025; 85610; 85730; 86140; 93971; 99283; J7512

== ENCOUNTER 2024-11-28 10:26 | Emergency (ER) | payer MEDICARE, MEDICAID, SELFPAY ==
[2024-11-28 10:28] VITALS: BP 160/98; PULSE 108; RESP 16; TEMP 36.6; O2SAT 98
[2024-11-28 10:32] VITALS: BP 160/98; PULSE 108; RESP 16; TEMP 36.6; O2SAT 98
--- NOTE | 2024-11-28 10:35 | W.ED.GENAD ---
Discharge Plan Disposition Patient Disposition: Home Condition: Stable Discharge Details Clinical Impression: Gastritis Primary Care Provider: None,None ED Provider: Jorge Winchester Home Meds and New Rx's Prescriptions: Continued multivitamin [Daily Multi-Vitamin] Tablet 1 tab PO DAILY Kyleena 17.5 mcg/24 hrs (5 yrs) 19.5 mg intrauterine device 1 device intrauterine ONCE Qty: 1 0RF Rx Instructions: as a single dose lamotrigine 100 mg tablet 100 mg PO BID Patient Comments: TAKE ONE TABLET BY MOUTH TWICE A DAY Discharge Instructions Instructions: Gastritis ED Additional Instructions: You were seen in the emergency department for your abdominal pain of uncertain cause, your laboratory workup is quite benign with no major abnormalities, your urine is normal, your CAT scan shows no acute pathology. Due to your onset after eating or drinking it is possible that you have a peptic ulcer or gastritis. Please take [id number]-[id number] famotidine twice a day for trial of relief as we discussed and cut out acidic foods from your diet, in the meantime you can arrange through your primary care for an upper endoscopy. Please return for any severe acute worsening of your abdominal pain with intractable nausea or vomiting, vomiting of blood or any other emergent concerns. Discharge Data Discharge Date/Time-TO BE ENTERED AT DEPARTURE: 11/28/24 13:11 HPI General Date/Time Provider Initiated Documentation: 11/28/24 10:35. HPI Narrative: 39 year-old female presents to ED today by POV/ambulating with a chief complaint of abdominal pain, sharp, getting worse, pain with eating or drinking, nausea without vomiting with onset 3 days ago. Quality described as central abdominal pain, no radiation to intractable vomiting, fever, chest pain, shortness of breath, dizziness, sweating. Severity is described as moderate to severe. Palliating factors include nothing specific attempted. Provoking factors include nothing specific. Patient not anticoagulated. Related Data Home Medications ?Medication ?Instructions ?Recorded ?Confirmed lamotrigine 100 mg tablet 100 mg PO BID 08/27/19 11/28/24 multivitamin (Daily Multi-Vitamin 1 tab PO DAILY 08/18/21 11/28/24 tablet) levonorgestrel 17.5 mcg/24 hr (up 1 device intrauterine ONCE #1 ea 09/25/21 11/28/24 to 5 yrs) 19.5mg intrauterine device (Kyleena) Previous Rx's ?Medication ?Instructions ?Recorded levonorgestrel 17.5 mcg/24 hr (up 1 device intrauterine ONCE #1 ea 09/25/21 to 5 yrs) 19.5mg intrauterine device (Kyleena) Allergies Allergy/AdvReac Type Severity Reaction Status Date / Time Antihistamines - Alkylamine Allergy Severe Seizure Verified 11/28/24 10:31 enoxaparin (From Lovenox) Allergy Skin Rash Verified 11/28/24 10:31 General Stated Complaint: Abd Prob ELZA: 3 Review of Systems All systems reviewed & are unremarkable except as noted in HPI and below Exam Narrative Exam Narrative: GENERAL APPEARANCE: Well-nourished, non-toxic, awake and alert, atraumatic, mild acute distress. SKIN: Warm, pink, dry, intact, without rashes/lesions/ulcerations. HEAD: Normocephalic, atraumatic, normal hair distribution for gender/age. EYES: Normal conjunctiva, no exudates on lids/lashes. ENT: Nares patent, no circumoral cyanosis, no facial swelling NECK: Supple, trachea midline, painless cervical ROM. LUNGS/CHEST: Lungs CTA bilaterally- no rhonchi/rales/wheezes diffusely, non-labored respirations, normal A/P diameter, symmetrical expansion, no chest wall deformity HEART (CV/PV): Regular rate and rhythm without murmur, no peripheral edema, no JVD. ABDOMEN: Soft, non-distended, no guarding, epigastric tenderness. MSK: Normal ROM, no swelling/deformity to bilateral UEs or LEs, moving all extremities without weakness, no cyanosis, spine midline without tenderness, normal curvature. NEURO: Mental Status AAOx4 - alert to person, place, time, events No facial droop, no forehead involvement. Motor: No focal weakness - strength 5/5 in bilateral UEs and LEs, proximal and distal, symmetric. Sensory: sensation intact to light touch globally. Gait normal: patient ambulated without ataxia into ED room. PSYCH: euthymic, cooperative, pleasant, appropriate speech Course Vital Signs Vital signs: Vital Signs Temperature 36.6 C 11/28/24 10:28 Pulse 108 H 11/28/24 10:28 Respiratory Rate 16 11/28/24 10:28 Blood Pressure 160/98 H 11/28/24 10:28 Pulse Oximetry 98 11/28/24 10:28 Temperature 36.6 C 11/28/24 10:32 Pulse 108 H 11/28/24 10:32 Respiratory Rate 16 11/28/24 10:32 Blood Pressure 160/98 H 11/28/24 10:32 Pulse Oximetry 98 11/28/24 10:32 Pain Level 8 11/28/24 10:32 Medical Decision Making This dictation utilizes [id number] dictation software and may contain unedited grammatical errors. 39 year-old female presents to ED today by POV/ambulating with a chief complaint of abdominal pain, sharp, getting worse, pain with eating or drinking, nausea without vomiting with onset 3 days ago. Quality described as central abdominal pain, no radiation to intractable vomiting, fever, chest pain, shortness of breath, dizziness, sweating. Severity is described as moderate to severe. Palliating factors include nothing specific attempted. Provoking factors include nothing specific. Patients' medical history: Seizure disorder. Family and social history: Tobacco use. Pertinent exam findings / vital signs include epigastric tenderness without overt Sanchez sign, no CVA tenderness to percussion bilaterally, benign cardiopulmonary status mildly tachycardic on arrival with normalization at rest. Differential / pathologies of concern include gastritis, cholecystitis, SBO, peptic ulcer disease, esophagitis, less likely pancreatitis or atypical chest pain/ACS. Diagnostic studies of: - CBC, CMP, magnesium, troponin, lipase, CT ABD/pelvis with contrast. - CBC shows no leukocytosis - Lactate negative - CMP is unremarkable - Troponin negative with reliable onset - Magnesium within normal limits - Lipase negative - CT shows no acute pathology Interventions of: - 15 mg IVP ketorolac, 4 mg IVP Zofran, 1 g IV Tylenol, 1 L IVF NS, 20 mg p.o. famotidine. ED Course/Assessment/Plan: 39-year-old female presents with central abdominal pain, CT and laboratory studies are very reassuring and her onset is worse after eating/drinking consistent with a gastritis, I counseled her on following up with her primary care provider for referral to general surgery for upper endoscopy but to trial famotidine twice daily in the meantime, strict return criteria for any emergent concerns. Findings not consistent with ACS, pancreatitis, cholecystitis or biliary colic, intractable nausea or vomiting, electrolyte derangement. Disposition of gastritis. Patient verbalized understanding of the plan and return to ED criteria and engaged in shared decision making. Medical Records Medical records reviewed: Yes I reviewed the patient's medical records. Imaging Data Radiologic Study: Attestation: I personally reviewed and interpreted this imaging study as follows: Imaging: CT Scan Radiologist's impression: EXAM: CT ABDOMEN PELVIS W CLINICAL HISTORY: pancreatitis vs divertic vs renal colic. TECHNIQUE: Imaging Protocol: Axial computed tomography images with coronal and sagittal reformatted images were created and reviewed CONTRAST MATERIAL: Intravenous: Omnipaque 350 Contrast volume:100 ml Oral: no COMPARISON: CT CT ABDOMEN PELVIS W from 07/04/2023 FINDINGS: ABDOMEN and PELVIS: Lung Bases: No acute findings. Liver: Normal density. No suspicious mass. Gallbladder and biliary tract: No radiodense calculus. No wall thickening or pericholecystic fluid. No biliary dilation. Pancreas: Normal density. No abnormal calcifications or inflammatory process. No evidence of mass. Spleen: Normal. Kidneys: Normal size, contour and axis. No radiodense stones. No obstructive uropathy. No suspicious masses seen. Adrenal glands: No masses seen. Vasculature: Abdominal aorta non-dilated. Soft tissues: Unremarkable. Bladder: No gross wall thickening. No calculi.No focal mass. Bowel: No obstruction. No bowel wall thickening. Appendix normal. Normal quantity of stool. Peritoneal cavity: No ascites. No focal collection. No mesenteric inflammatory response. No free air. Bones: Unremarkable for age. Reproductive organs: IUD in place. Lymph nodes: No pathologically enlarged lymph nodes. IMPRESSION:: No acute abnormality in the abdomen or pelvis. Lab Data Lab results reviewed: Yes I reviewed the patient's lab results. Labs: Laboratory Tests Range/Units 11/28/24 10:54 WBC (4.4-10.8) 10^3/uL 7.66 RBC (3.93-5.22) 10^6/uL 4.81 Hgb (11.2-15.7) g/dL 15.1 Hct (36.0-46.0) % 43.5 MCV (80-95) fL 90 MCH (27.0-33.0) pg 31.4 MCHC (32.0-36.0) % 34.7 RDW (11.7-14.6) % 12.3 Plt Count (130-400) 10^3/uL 261 MPV (8.0-11.0) fL 9.7 Immature Gran % % 0.1 Neutrophils % % 68.9 Lymphocytes % % 22.5 Monocytes % % 7.6 Eosinophils % % 0.5 Basophils % % 0.4 Nucleated RBC % (0.0-0.3) % 0.0 Absolute Neutrophils (1.2-6.7) 10^3/uL 5.28 Absolute Lymphocytes (1.2-3.4) 10^3/uL 1.72 Absolute Monocytes (0.1-0.8) 10^3/uL 0.58 Absolute Eosinophils (0.0-0.7) 10^3/uL 0.04 Absolute Basophils (0.0-0.2) 10^3/uL 0.03 VBG Lactate (<or=2.0) mmol/L 1.0 Sodium (136-145) mmol/L 138 Potassium (3.5-5.1) mmol/L 3.8 Chloride (98-107) mmol/L 104 Carbon Dioxide (21.0-32.0) mmol/L 23.8 Anion Gap (3-11) mmol/L 10.2 BUN (7-18) mg/dL 6 L Creatinine (0.55-1.02) mg/dL 0.8 Est GFR (CKD-EPI 2020) (mL/min/1.73m2) 95.46 Glucose (74-106) mg/dL 103 Calcium (8.5-10.1) mg/dL 8.8 Magnesium (1.8-2.4) mg/dL 1.9 Total Bilirubin (0.2-1.0) mg/dL 0.2 AST (15-37) U/L 15 ALT (14-59) U/L 27 Alkaline Phosphatase (46-116) U/L 95 Troponin I (<or=51) ng/L < 4 Total Protein (6.4-8.2) g/dL 7.5 Albumin (3.4-5.0) g/dL 3.8 Lipase (<78) U/L 21 PFSH All Active Problems (Updated 11/28/24 @ 13:01 by TOPHER Mora) Gastritis (Acute) Visit for suture removal (Acute) Lipoma (Acute) Tear of medial collateral ligament of left knee (Acute 06/24/22) Internal derangement of left knee (Acute ~06/24/22) History of chronic sinusitis (Acute) History of cellulitis (Acute 06/28/15) History of shingles (Acute) History of smoking (Acute) IUD (intrauterine device) in place (Acute) IUD (intrauterine device) in place (Acute) Other social stressor (Acute) Dysmenorrhea (Chronic) since of her daughter 06/2020. Not a candidate for OCPs. Counseled re; IUD for non-contraceptive benefits. Conductive hearing loss in right ear (Acute) Dysfunction of right eustachian tube (Acute) Back pain (Acute) Hip pain (Acute) Foot drop, left (Acute) Subcutaneous mass of right upper extremity (Acute) BMI 37.0-37.9, adult (Acute) Migraine (Chronic) naproxen PRN Family history of malignant neoplasm of breast (Acute) Unclear if breast cancer was primary. Mother of colon cancer age 58. Family history of malignant neoplasm of colon (Chronic) Mother at 58 years of age. Patient needs early screening colonoscopy. Smoker (Acute) Dental caries (Acute 06/28/15) Arthritis of ankle, left (Acute 10/04/16) Medical History Tinnitus, bilateral Seizure disorder (06/28/15) Posterior tibial tendon dysfunction, left (10/04/16) Chronic maxillary sinusitis (06/28/15) Surgical History History of female sterilization 2020 at time of repeat delivery History of delivery x2 with tubal sterilization 2020. History of sinus surgery History of ankle surgery Family History Mother , at 59 Ovarian cancer Breast cancer Unsure Colon cancer at age 59 Maternal Cousin Colon cancer Father No problems noted. Maternal Grandmother Breast cancer Social History Smoking/Tobacco Use Status: Current every day Tobacco Type: cigarettes Quit status: has quit before Smoking risk assessment performed?: Yes Alcohol Intake: never Drug use: Never Substance use type: does not use Housing: house Current gender identity: female Seatbelt use: always Do you feel safe at home: Yes Do you feel safe in your relationship?: Yes Female Reproductive History Menstrual control method: permanent sterilization (At time of delivery 2020.) History History 2 Para 2 Hx # Term Pregnancies 2 Multiple births 0 Hx # Pregnancies 0 Ectopic pregnancies 0 AB induced 0 Hx Number of Living Children 1 AB spontaneous 1 Past Pregnancies Del. Date GA/Weeks # Preg Succ Route Wgt Sex Labor Lgth Anesthesia Location [facility] 10/16/12 38 No 3770.487 g Female [address] [facility] 06/07/20 39 No Yes 3801 g Female Pt elected to deliver at [facility] Delivery Date: 10/16/12 Last Updated by: Nirmala Mishra CNM Pitocin augmentation at [facility] [place], prodromal labor and evaluated at [facility] and patient chose to go to [facility] for care. Delivery Date: 06/07/20 Last Updated by: Luz Martínez MD Elective repeat LTCS with tubal sterilization. Bety.
[2024-11-28] MEDS: Ondansetron 4 MG/2 ML VIAL IVP (11:02)
[2024-11-28] MEDS: ACETAMINOPHEN 1,000 MG/100 ML BAG 400 MG IVPB (11:02)
[2024-11-28] MEDS: Ketorolac 15 MG/ML VIAL IVP (11:02)
[2024-11-28 11:03] LABS: Abs Immature Grans 0.01 10^3/uL (0.0-0.06); HCT 43.5 % (36.0-46.0); HGB 15.1 g/dL (11.2-15.7); Immature Grans % 0.1 %; MCH 31.4 pg (27.0-33.0); MCHC 34.7 % (32.0-36.0); MCV 90 fL (80-95); MPV 9.7 fL (8.0-11.0); Platelet Count 261 10^3/uL (130-400); RBC 4.81 10^6/uL (3.93-5.22); RDW 12.3 % (11.7-14.6); RDW-SD 40.8 fL; WBC 7.66 10^3/uL (4.4-10.8)
[2024-11-28] MEDS: Normal Saline 1,000 ML 1000 ML IV (11:03)
[2024-11-28] MEDS: Normal Saline Flush 10 ML SYR IVP (11:16)
[2024-11-28] MEDS: Normal Saline - Diluent 50 ML VIAL IJ (11:17)
[2024-11-28] MEDS: Omnipaque 350 MG/ML 500 ML BTL-Imaging package IJ (11:17)
[2024-11-28 11:21] LABS: ALT 27 U/L (14-59); AST 15 U/L (15-37); Albumin 3.8 g/dL (3.4-5.0); Alkaline Phosphatase 95 U/L (46-116); Anion Gap 10.2 mmol/L (3-11); BUN 6 mg/dL (7-18); Bilirubin, Total 0.2 mg/dL (0.2-1.0); CO2 23.8 mmol/L (21.0-32.0); Calcium 8.8 mg/dL (8.5-10.1); Chloride 104 mmol/L (98-107); Estimated GFR 95.46 (mL/min/1.73m2); Glucose 103 mg/dL (74-106); Magnesium 1.9 mg/dL (1.8-2.4); Potassium 3.8 mmol/L (3.5-5.1); Sodium 138 mmol/L (136-145); Total Protein 7.5 g/dL (6.4-8.2); Troponin I < 4 ng/L (<or=51)
--- NOTE | 2024-11-28 11:25 | DI.CT_ITS ---
Exam(s) CT ABDOMEN PELVIS W EXAM: CT ABDOMEN PELVIS W CLINICAL HISTORY: pancreatitis vs divertic vs renal colic. TECHNIQUE: Imaging Protocol: Axial computed tomography images with coronal and sagittal reformatted images were created and reviewed CONTRAST MATERIAL: Intravenous: Omnipaque 350 Contrast volume:100 ml Oral: no COMPARISON: CT CT ABDOMEN PELVIS W from 07/04/2023 FINDINGS: ABDOMEN and PELVIS: Lung Bases: No acute findings. Liver: Normal density. No suspicious mass. Gallbladder and biliary tract: No radiodense calculus. No wall thickening or pericholecystic fluid. No biliary dilation. Pancreas: Normal density. No abnormal calcifications or inflammatory process. No evidence of mass. Spleen: Normal. Kidneys: Normal size, contour and axis. No radiodense stones. No obstructive uropathy. No suspicious masses seen. Adrenal glands: No masses seen. Vasculature: Abdominal aorta non-dilated. Soft tissues: Unremarkable. Bladder: No gross wall thickening. No calculi.No focal mass. Bowel: No obstruction. No bowel wall thickening. Appendix normal. Normal quantity of stool. Peritoneal cavity: No ascites. No focal collection. No mesenteric inflammatory response. No free air. Bones: Unremarkable for age. Reproductive organs: IUD in place. Lymph nodes: No pathologically enlarged lymph nodes. IMPRESSION:: No acute abnormality in the abdomen or pelvis. RADIATION DOSE DELIVERED: 1,140.25mGy.cm Total DLP DATA REPOSITORY: All CT scans at this facility are submitted to the National Radiology Data Registry (NRDR) Dose Index Registry (DIR) with the [employer] (A[employer]). RADIATION OPTIMIZATION: All CT scans at this facility use at least one of these dose optimization techniques: automated exposure control; mA and/or kV adjustment per patient size (includes targeted exams where dose is matched to clinical indication); or iterative reconstruction.
[2024-11-28 11:27] LABS: Lipase 21 U/L (<78)
[2024-11-28 12:48] LABS: Glucose Negative (Negative)
[2024-11-28] MEDS: Famotidine 20 MG TAB PO (13:09)
[2024-11-28 13:10] VITALS: BP 112/76; PULSE 81; RESP 16; O2SAT 97
== END 2024-11-28 13:11 | disposition home or self-care (01) ==
PROVIDERS: Emergency Provider Physician Assistant
DX: K29.70 Gastritis, unspecified, without bleeding (principal); R11.0 Nausea
CPT/HCPCS: 80053; 83690; 96361; 96365; 96375; 99285; 74177; 81003; 83605; 83735; 84484; 85025; 99283; J0131; J1885; J2405

== ENCOUNTER 2025-02-02 12:33 | Outpatient (REF) | payer MEDICARE, SELFPAY ==
[2025-02-02 15:45] LABS: HCT 37.4 % (36.0-46.0); HGB 12.6 g/dL (11.2-15.7); MCH 31.3 pg (27.0-33.0); MCHC 33.7 % (32.0-36.0); MCV 93 fL (80-95); MPV 9.9 fL (8.0-11.0); Platelet Count 325 10^3/uL (130-400); RBC 4.03 10^6/uL (3.93-5.22); RDW 13.1 % (11.7-14.6); RDW-SD 44.9 fL; WBC 8.00 10^3/uL (4.4-10.8)
[2025-02-02 16:08] LABS: Lipase 21 U/L (<53)
[2025-02-02 16:10] LABS: ALT 22 U/L (10-49); AST 20 U/L (<34); Albumin 4.2 g/dL (3.2-5.0); Alkaline Phosphatase 89 U/L (46-116); Anion Gap 8.4 mmol/L (3-11); BUN 5 mg/dL (9-23); Bilirubin, Total 0.20 mg/dL (0.2-1.2); CO2 27.6 mmol/L (20.0-31.0); Calcium 9.3 mg/dL (8.3-10.6); Chloride 109 mmol/L (98-107); Glucose 108 mg/dL (74-106); Potassium 3.7 mmol/L (3.5-5.1); Sodium 145 mmol/L (136-145); Total Protein 6.5 g/dL (5.7-8.2)
== END 2025-02-02 12:34 | disposition home or self-care (01) ==
LOC: NCHCN 12:33
PROVIDERS: Visit Provider Physician Assistant
DX: R19.7 Diarrhea, unspecified (principal)
CPT/HCPCS: 80053; 83690; 85027